=== PATIENT | male | born 2005 | race Caucasian/White ===

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

== ENCOUNTER 2023-07-17 03:29 | Emergency (ER) | payer OTHER, SELFPAY ==
[2023-07-17 03:36] VITALS: BP 142/84; PULSE 78; RESP 16; TEMP 36.8; O2SAT 98
[2023-07-17 03:38] VITALS: BP 122/70; PULSE 84; O2SAT 99
[2023-07-17 03:48] VITALS: BP 142/84; PULSE 78; RESP 16; TEMP 36.8; O2SAT 98; BMI 19.5
[2023-07-17 06:06] VITALS: BP 113/55; PULSE 54; RESP 16; TEMP 36.6; O2SAT 95
--- NOTE | 2023-07-17 06:30 | ED.ANXIETY ---
HPI - Anxiety General Chief Complaint: Anxiety Stated Complaint: stressed x 83 minutes Time Seen by Provider: 07/17/23 06:30 Source: patient and RN notes reviewed Mode of arrival: ambulatory Limitations: no limitations History of Present Illness ED Provider: Sarahi Nur PA-C HPI narrative: This is a 18-year-old male, with a history of anxiety depression, who presents emergency department via EMS with complaints of increased anxiety and stressors. Patient states he has been without his medications for the last 4 days. He states that his grandparents who he was staying with recently kicked him out because he was drinking alcohol. Patient states that he is currently followed by DCF as well as DDS who has been attempting to find placement for housing for him as he reports he is currently homeless. Patient does have a psychiatrist who typically prescribed his medications for him. He denies any suicidal or homicidal ideations. Denies any current auditory or visual hallucinations. He denies any chest pain, shortness of breath, abdominal pain, nausea, vomiting or diarrhea. No other complaints or concerns at this time. MD complaint: anxiety Quality: constant Provoking factors: none known Relieving factors: nothing Exacerbating factors: nothing Associated symptoms: denies other symptoms Related Data Previous Rx's ?Medication ?Instructions ?Recorded clonidine HCl 0.1 mg tablet 0.1 mg PO BID #14 tabs 01/12/22 methylphenidate HCl 36 mg 36 mg PO DAILY #7 tabs 01/12/22 tablet,extended release 24 hr (Concerta) mirtazapine 15 mg tablet 15 mg PO DAILY #7 tabs 01/12/22 risperidone 0.5 mg tablet 0.5 mg PO DAILY #7 tabs 01/12/22 Magic Mouthwash 5 ml PO BID PRN sore throat #240 mL 05/01/22 Diphen/Lido/Antacid 1:1:1 240 mL suspension ibuprofen 600 mg tablet 600 mg PO Q6H PRN fever or pain 09/24/22 #30 tabs Allergies Allergy/AdvReac Type Severity Reaction Status Date / Time No Known Allergies Allergy Unknown UNKNOWN Verified 07/17/23 03:53 [NO KNOWN ALLERGIES] Review of Systems Review of Systems: Yes all other systems are reviewed and are negative Constitutional: Constitutional: Reports as per [facility] Past Medical History Attestation statement: The following information was validated with the patient. Medical History No pertinent past medical history Social History Social History Alcohol intake: never Smoked in Last 30 Days: No Use of substances other than those prescribed or required for medical reasons: Yes Substance Use Type: Marijuana Advance Directives: No Do you have a plan to hurt others: No Plan Physical Exam Vital Signs: Vital Signs: Last Vital Signs Temp 98 F 07/17/23 12:56 Pulse 70 07/17/23 12:56 Resp 16 07/17/23 12:56 BP 121/74 07/17/23 12:56 Pulse Ox 96 07/17/23 12:56 O2 Del Method Room Air 07/17/23 12:56 BMI result Body Mass Index 19.5 Const: General: cooperative, comfortable and no acute distress Orientation/consciousness: patient oriented x3 Limitations: no limitations HEENT: Head: Yes normal to inspection, Yes normocephalic and Yes atraumatic Ears: hearing grossly normal bilaterally General nose exam: Normal external nose present Face and sinus: Yes normal facial exam Mouth: Normal oral and palatal mucosa present, oropharynx normal and moist mucous membranes Throat: Yes posterior oropharynx normal Eyes: General: appearance normal, both eyes and all related structures Eyelids: Yes eyelids normal Conjunctivae: conjunctivae normal Sclerae: sclerae normal Pupils: Equal, round and reactive pupils present EOM: EOMs intact bilaterally Neck: Neck: Yes normal visual inspection, Yes full ROM and Yes no lymphadenopathy Lymphatic: no lymphadenopathy noted Chest: Chest palpation & inspection: normal inspection of the chest Resp: Effort & Inspection: normal respiratory effort and able to speak in complete sentences Auscultation: clear to auscultation bilaterally, no crackles, no rales, no rhonchi and no wheezes Cardio: Rate: regular rate Rhythm: regular rhythm Heart sounds: S1 normal heart sound present and S2 normal heart sound present GI: Inspection: Yes normal to inspection Skin: General skin exam: no rashes or lesions noted Trauma: no lacerations or abrasions Wounds: no wounds Neuro: General: patient oriented x3 and moves all extremities Cranial nerves: Yes Equal, round and reactive pupils present Extrem: General: Yes normal to inspection Right upper extremity: normal to inspection Left upper extremity: normal to inspection Right lower extremity: normal to inspection Left lower extremity: normal to inspection Course Reevaluation(s) Reevaluation #1: Patient has been resting comfortably without any complaints. Pharmacy will not fill any of his medications as it is too early to have these medications refilled. Patient reports that his grandparents currently have the medications in their possession and patient reports he is unable to get them. I called grandparents at patient's request, You, at [phone], without any answer. Left message on voicemail. Time: 09:33 Reevaluation #2: Second phone call made out to grandmother, no answer patient requesting Tylenol. I discussed with patient that we are unable to fill his psych medications. I advised patient to any family members and I also offered that he to the police as they can escort him to nut picker his medication safely. Patient given emergency room phone so he can contact his sister. Time: 11:03 Reevaluation #3: pt unable to get a hold of family but will contact sister at d/c to try and get meds. He is stable and comfortable for d/c. Medications Administered Discontinued Medications Generic Name Dose Route Start Last Admin Trade Name Freq PRN Reason Stop Dose Admin Acetaminophen 975 mg 07/17/23 11:14 07/17/23 11:26 Acetaminophen 325 Mg Tablet PO 07/17/23 11:15 975 mg ONCE ONE Administration Medical Decision Making Medical Decision Making [facility] Narrative: This is a 18-year-old male who presents emergency department with complaints of increased anxiety and depression. Patient states that he recently ran out of his medications 4 days ago and has not been able to have them filled as his grandparents are typically the people that follow-up with a psychiatrist to have these medications. He currently was kicked out of his home as he was drinking alcohol at his grandparent's home. He denies any SI or HI. No auditory or visual hallucinations. On arrival patient mildly hypertensive at 142/84, all other vital signs are within normal limits. He is speaking in full sentences alert and oriented x4. He has no physical complaints. I discussed with patient in regards to speaking with the care team, he declines as he is currently being followed by DCF and DDS, as well as Psychiatry. Plan: Medication refill Differential Diagnosis Differential Diagnoses: The differential diagnosis associated with the presentation includes Anxiety, depression, SI, HI, panic disorder Social Determinants Patient?s care significantly limited by Social Determinants of Health including: Inadequate housing Discharge Plan Discharge Clinical Impression: Acute anxiety Patient Disposition: Home, Self-Care Instructions: Anxiety (ED) Additional Instructions: You need to follow-up with your psychiatrist for further medication management. We were unable to refill your medications as you just refilled them. If any new or worsening symptoms occur including but not limited to thoughts of harming yourself or others, chest pain or shortness of breath, please return to the emergency room. Prescriptions: No Action Magic Mouthwash Diphen/Lido/Antacid 1:1:1 240 mL suspension 5 ml PO BID PRN (Reason: sore throat) Qty: 240 0RF Rx Instructions: Lidocaine Viscous 2 % 80mL; diphenhydramine 12.5 mg/5 mL 80mL; aluminum-mag hydrox-simeth [id number]/5mL 80mL risperidone 0.5 mg tablet 0.5 mg PO DAILY Qty: 7 0RF methylphenidate HCl [Concerta] 36 mg tablet extended release 24hr 36 mg PO DAILY Qty: 7 0RF Rx Instructions: Partial Fill upon patient request. clonidine HCl 0.1 mg tablet 0.1 mg PO BID Qty: 14 0RF mirtazapine 15 mg tablet 15 mg PO DAILY Qty: 7 0RF ibuprofen 600 mg tablet 600 mg PO Q6H PRN (Reason: fever or pain) Qty: 30 0RF Interventions: ED Discharge Assessment Last Done: 07/17/23 12:56 Discharge Date/Time: 07/17/23 12:59 Print Language: Brazilian
--- NOTE | 2023-07-17 09:00 | PC.NURSE ---
pt sleeping, wakes to verbal stimulus, provider looking into pts medications with pharmacy, will continue to monitor
[2023-07-17 10:50] VITALS: BP 128/72; PULSE 72; RESP 16; TEMP 36.6; O2SAT 96
[2023-07-17] MEDS: Acetaminophen 325 MG TABLET 975 MG PO (11:26)
--- NOTE | 2023-07-17 11:57 | PC.NURSE ---
pt attempted to call sister, per pt she did answer however does not get out of work until 4pm.
[2023-07-17 12:56] VITALS: BP 121/74; PULSE 70; RESP 16; TEMP 36.6; O2SAT 96
== END 2023-07-17 12:59 | disposition home or self-care (01) ==
PROVIDERS: Emergency Provider Emergency Medicine Emergency Medical Services
DX: F41.9 Anxiety disorder, unspecified (principal); F32.A Depression, unspecified
CPT/HCPCS: 99283; 99284

== ENCOUNTER 2023-07-18 23:43 | Inpatient (IN) | payer OTHER, SELFPAY ==
[2023-07-18 23:46] VITALS: BP 166/100; PULSE 91; O2SAT 98
[2023-07-18 23:50] VITALS: BP 126/73; PULSE 90; RESP 16; TEMP 37; O2SAT 95; BMI 27.2
--- NOTE | 2023-07-19 | ECG_ITS ---
Test Reason : RULE OUT PROLONGED QTC Blood Pressure : / mmHG Vent. Rate : 056 BPM Atrial Rate : 056 BPM P-R Int : 126 ms QRS Dur : 082 ms QT Int : 384 ms P-R-T Axes : 016 064 054 degrees QTc Int : [address] elevation, consider early repolarization, pericarditis, or injury Abnormal ECG When compared with ECG of 13-JUN-2022 03:26, No significant change was found Referred By: Eve Fay Electronically Signed By:GUANAKO RAPP
[2023-07-19 04:25] VITALS: BP 93/53; PULSE 71; RESP 16; TEMP 36.6; O2SAT 99
--- NOTE | 2023-07-19 06:48 | ED_ITS ---
HPI - General Adult General Chief complaint: General Medical Stated complaint: SI Time Seen by Provider: 07/19/23 06:39 Source: patient, RN notes reviewed and old records reviewed Mode of arrival: ambulatory Limitations: no limitations History of Present Illness ED Provider: GAY NORMAN PA-C HPI narrative: 18 year old male with pmhx significant for ADHD, anxiety, and depression presents to the ED from home today requesting to speak with care team. He endorses feelings of depression s/p family member jumping off bridge recently. He states that he has no one to talk to about this. He denies SI/HI. Denies AH/VH/TH. Patient is currently involved in DCF/DDS. Denies illicit substance use. Denies EtOH consumption. Denies any physical complaints at present. Related Data Previous Rx's ?Medication ?Instructions ?Recorded methylphenidate HCl 36 mg 36 mg PO DAILY #7 tabs 01/12/22 tablet,extended release 24 hr (Concerta) risperidone 0.5 mg tablet 0.5 mg PO DAILY #7 tabs 01/12/22 Allergies Allergy/AdvReac Type Severity Reaction Status Date / Time No Known Allergies Allergy Unknown UNKNOWN Verified 07/18/23 23:50 [NO KNOWN ALLERGIES] Review of Systems 2 Review of Systems: Constitutional: No fever, chills, fatigue, night sweats, weight changes ENT/Mouth: No ear pain, hearing loss, nasal congestion, sinus pain, rhinorrhea, sore throat Eyes: No eye pain, swelling, redness, vision changes, discharge Cardio: No chest pain, palpitations, CANTRELL, orthopnea, peripheral edema Pulm: No SOB, cough, sputum, wheezing, dyspnea, hemoptysis GI: No nausea, vomiting, hematemesis, abdominal pain, diarrhea, constipation, hematochezia, melena : No irregular bleeding, dysuria, frequency, urgency, hesitancy, hematuria, flank pain, urinary flow changes, urinary incontinence or retention MSK: No back pain, neck pain, joint pain, myalgias Skin: No lesions, rashes Neuro: No weakness, numbness, paresthesias, LOC, dizziness, headache Psych: No anxiety/panic, SI/HI, AH/VH, +depression All other systems reviewed and are negative. [facility] Past Medical History Attestation statement: The following information was validated with the patient. Source: old records reviewed and nursing notes reviewed Medical History No pertinent past medical history Social History Social History Alcohol intake: never Smoked in Last 30 Days: No Use of substances other than those prescribed or required for medical reasons: No Substance Use Type: Marijuana Advance Directives: No Advance Directives Information Provided: No Physical Exam ED Vital Signs: Vital Signs - 24 hr 07/18/23 23:50 07/19/23 04:25 Temperature 98.6 F 97.8 F Pulse Rate 90 71 Respiratory Rate 16 16 Blood Pressure 126/73 93/53 L Pulse Oximetry 95 99 Oxygen Delivery Method Room Air Room Air BMI result Body Mass Index 27.2 Vital signs stable Const General: cooperative, healthy appearing, comfortable and no acute distress Orientation/consciousness: patient oriented x3 HENFL Head: Yes normal to inspection, Yes No palpable skull fracture present, Yes normocephalic and Yes atraumatic Eyes General: appearance normal, both eyes and all related structures Neck Neck: Yes normal visual inspection, Yes full ROM and Yes no lymphadenopathy Resp Effort & Inspection: normal respiratory effort and able to speak in complete sentences Auscultation: clear to auscultation bilaterally Cardio Rate: regular rate Rhythm: regular rhythm General: Yes no CVA tenderness Back/Spine/Pelvis Back: no CVA tenderness Skin General skin exam: no rashes or lesions noted Neuro General: patient oriented x3, gait normal and no focal motor deficits Cranial nerves: Yes CN's II-XII intact bilaterally Course Course Course Narrative: 906-- CBC without leukocytosis or left shift. No anemia. H&H stable. Chemistry without acute electrolyte abnormality requiring intervention. BUN slightly elevated at 21. Normal creatinine. Salicylates undetectable. Ethanol undetectable. > UA and UDS pending > physician observation initiated at 0907 pending care team evaluation 1156-- urine negative for infection. Urine drug screen negative. 12:48 The patient was evaluated by the care team and I did get the following information. The patient has a low IQ of approximately 60, patient was living with his grandparents and the grandmother with his guardian however the patient has been living independently. He is been demonstrating very unsafe behaviors in order to try to gain friends. He has been stealing his grandmother's debit cadr. He has been spending money in inappropriate ways. Care team provider felt that the patient is at high risk of unintended harm secondary to his behavior and the patient is not taking his medications therefore I placed the patient on a Section 12. DCF and DDS has been involved in the patient's case. The grandparents would like to obtain guardianship to help the patient get into an appropriate living situation. Patient will be kept in the Behavioral Health Unit until a disposition can be determined. Medical Decision Making Medical Decision Making [facility] Narrative: 18 year old male with pmhx significant for ADHD, anxiety, and depression presents to the ED from home today requesting to speak with care team. Vital signs stable. Patient is afebrile. He is nontoxic-appearing and in no acute distress. Sleeping comfortably on the exam bed. RRR. Lungs are CTA b/l. ambulating with steady gait. Differential diagnosis includes depression, med noncompliance. Unlikely SI, HI, anxiety, substance use. Plan for basic labs, UA, UDS, care team consultation, and disposition. Differential Diagnosis Differential Diagnoses: The differential diagnosis associated with the presentation includes As above Admission/Observation Not indicated Lab Data [facility] Lab Attestation statement: I reviewed the patient's lab results. As above 07/19/23 07:28 07/19/23 07:28 Labs: Lab Results 07/19/23 07/19/23 Range/Units 07:28 10:32 WBC 7.9 (4.8-10.8) X10*3/uL RBC 4.98 (4.60-5.80) X10*6/uL Hgb 15.5 (14.0-18.0) g/dl Hct 44.3 (42.0-52.0) % MCV 89.0 (80.0-98.0) fL MCH 31.1 (27.0-33.0) pg MCHC 35.0 (31.0-36.0) g/dl RDW 12.2 (11.0-16.0) % Plt Count 335 D (160-400) X10*3/uL MPV 8.5 L (9.4-12.4) fL Immature Gran % (Auto) 0.3 (0.0-0.4) % Neut % (Auto) 48.3 (45-73) % Lymph % (Auto) 38.2 (20-40) % Rogers % (Auto) 11.3 H (2-11) % Eos % (Auto) 1.5 (0-4) % Baso % (Auto) 0.4 (0-2) % Lymph # (Auto) 3.0 (1.2-4.9) X10*3/uL Rogers # (Auto) 0.9 (0.1-1.2) X10*3/uL Eos # (Auto) 0.1 (0.0-0.4) X10*3/uL Baso # (Auto) 0.0 (0.0-0.2) X10*3/uL Abs Immat Gran (auto) 0.02 (0.00-0.03) X10*3/uL Absolute Neuts (auto) 3.8 (2.0-8.3) x10*3/uL Absolute Nucleated RBC 0.000 (0.0-0.012) X10*3/uL Nucleated RBC % (auto) 0.0 (0.0-0.2) /100WBC Sodium 139 (135-145) mmol/L Potassium 4.0 (3.3-5.1) mmol/L Chloride 107 (96-108) mmol/L Carbon Dioxide 24 (22-29) mmol/L Anion Gap 12 (12-20) BUN 21 H (9-16) mg/dL Creatinine 0.99 (0.5-1.4) mg/dL Estim Creat Clear Calc 107.4 Estimated GFR > 60 Random Glucose 96 (60-115) mg/dL Calcium 9.1 (8.4-10.2) mg/dL Magnesium 2.1 (1.6-2.6) mg/dL Total Bilirubin 0.2 (0.0-1.0) mg/dL AST 18 (5-37) U/L ALT 14 (0-40) U/L Alkaline Phosphatase 55 (39-117) U/L Total Protein 6.9 (6.5-8.0) g/dL Albumin 4.1 (3.5-5.0) g/dL Lipase 18 (8-78) U/L Urine Color Yellow Urine Appearance Clear Urine pH 5.5 (5.0-9.0) Ur Specific [place] >= 1.030 H (1.005-1.025) Urine Protein Negative (Neg-Trace) mg/dL Urine Glucose (UA) Negative (Negative) mg/dL Urine Ketones Negative (Negative) mg/dL Urine Blood Negative (Negative) Urine Nitrite Negative (Negative) Ur Leukocyte Esterase Negative (Negative) Salicylates < 5.0 L (15-30) mg/dL Urine Opiates Screen Not Detected (Not Detect) Ur Buprenorphine Scrn Not Detected (Not Detect) ng/mL Ur Oxycodone Screen Not Detected (Not Detect) ng/mL Urine Methadone Screen Not Detected (Not Detect) ng/mL Urine Fentanyl Screen Not Detected (Not Detect) Ur Barbiturates Screen Not Detected (Not Detect) Ur Phencyclidine Scrn Not Detected (Not Detect) Ur Amphetamines Screen Not Detected (Not Detect) U Benzodiazepines Scrn Not Detected (Not Detect) Urine Cocaine Screen Not Detected (Not Detect) U Marijuana (THC) Screen Not Detected (Not Detect) Ethyl Alcohol < 10 mg/dL External Record Review External record reviewed: Inpatient record Social Determinants Patient?s care significantly limited by Social Determinants of Health including: Other Social Determinant of Health Critical Care Time Critical Care Time Critical Care Time: No Discharge Plan Discharge Clinical Impression: Depression Patient Disposition: Still a Patient Prescriptions: No Action risperidone 0.5 mg tablet 0.5 mg PO DAILY Qty: 7 0RF methylphenidate HCl [Concerta] 36 mg tablet extended release 24hr 36 mg PO DAILY Qty: 7 0RF Rx Instructions: Partial Fill upon patient request. Print Language: Croatian
[2023-07-19 07:44] LABS: MANUAL DIFF FLAG NO
[2023-07-19 07:47] LABS: Basophils Percent Auto 0.4 % (0-2); Eosinophils Absolute Auto 0.1 X10*3/uL (0.0-0.4); Eosinophils Percent Auto 1.5 % (0-4); Hematocrit 44.3 % (42.0-52.0); Hemoglobin 15.5 g/dl (14.0-18.0); Imm Gran Abs Auto 0.02 X10*3/uL (0.00-0.03); Imm Gran Pct Auto 0.3 % (0.0-0.4); Lymphocytes Percent Auto 38.2 % (20-40); Mean Corpuscular Hemoglobin 31.1 pg (27.0-33.0); Mean Platelet Volume 8.5 fL (9.4-12.4); Monocytes Absolute Auto 0.9 X10*3/uL (0.1-1.2); Monocytes Percent Auto 11.3 % (2-11); Neutrophils Absolute Auto 3.8 x10*3/uL (2.0-8.3); Neutrophils Percent Auto 48.3 % (45-73); Platelet Count 335 X10*3/uL (160-400); Red Blood Count 4.98 X10*6/uL (4.60-5.80); Red Cell Distribution Width 12.2 % (11.0-16.0); White Blood Count 7.9 X10*3/uL (4.8-10.8)
--- NOTE | 2023-07-19 07:55 | PC.NURSE ---
Pt reports he came to ER due to feeling stressed out, reports he is currently homeless and working with DCF to find a home. Denies SI or HI, reports he only feels stressed and wants to talk to someone about his living situation. Denies pain, SOB, CP, or complaints. Alert and oriented, breathing even and unlabored, skin warm and dry.
[2023-07-19 08:02] LABS: Salicylate < 5.0 mg/dL (15-30)
[2023-07-19 08:06] LABS: Alanine Aminotransferase 14 U/L (0-40); Albumin Level 4.1 g/dL (3.5-5.0); Alkaline Phosphatase 55 U/L (39-117); Anion Gap 12 (12-20); Aspartate Amino Transferase 18 U/L (5-37); Bilirubin Total 0.2 mg/dL (0.0-1.0); Blood Urea Nitrogen 21 mg/dL (9-16); Calcium 9.1 mg/dL (8.4-10.2); Carbon Dioxide 24 mmol/L (22-29); Chloride 107 mmol/L (96-108); Creatinine Clr Calc Pharmacy 107.4; Estimated Glomerular Filt Rate > 60; Ethanol < 10 mg/dL; Glucose Random 96 mg/dL (60-115); Lipase 18 U/L (8-78); Magnesium 2.1 mg/dL (1.6-2.6); Sodium 139 mmol/L (135-145); Total Protein 6.9 g/dL (6.5-8.0)
[2023-07-19 10:40] LABS: Appearance Urine Clear; Color Urine Yellow; Glucose Urine UA Negative (Negative); Leukocyte Esterase Urine Negative (Negative); Nitrite Urine Negative (Negative); PH 5.5 (5.0-9.0); Specific Gravity - Urine >= 1.030 (1.005-1.025); Urine Blood Negative (Negative); Urine Ketones Negative (Negative); Urine Protein Negative (Neg-Trace)
[2023-07-19 10:57] LABS: Amphetamine Screen Urine Not Detected (Not Detect); Barbiturates, Urine Not Detected (Not Detect); Benzodiazepines Screen Urine Not Detected (Not Detect); Buprenorphine Scr Not Detected (Not Detect); Cannabinoid Screen Urine Not Detected (Not Detect); Cocaine Screen Urine Not Detected (Not Detect); Fentanyl, urine Not Detected (Not Detect); Methadone Screen, Urine Not Detected (Not Detect); Opiate Screen Urine Not Detected (Not Detect); Oxycodone Screen Urine Not Detected (Not Detect); Phencyclidine Screen Urine Not Detected (Not Detect)
--- NOTE | 2023-07-19 11:26 | PC.NURSE ---
Pt sleeping at this time.
[2023-07-19] MEDS: Nicotine Polacrilex 2 MG GUM BUCCAL (13:47)
[2023-07-19 15:00] VITALS: RESP 16
--- NOTE | 2023-07-19 15:00 | PC.NURSE ---
Assumed care of patient at approximately 1300, patient brought from main ED, originally very agitated, uncooperative with exchange floor manager, yelling at staff and disrupting the pod milieu. Patient eventually willing to exchange floor manager and give up belongings. Cooperative with care at this time. Patient aware that he is on section 12 and the plan is for inpatient bedsearch. Patient ambulating with steady gait around BH pod, listening to music, singing and joking with staff. No apparent distress noted. Patient denies SI/HI/AH
[2023-07-19 15:44] VITALS: BP 122/78; PULSE 89; RESP 18; TEMP 36.5; O2SAT 97
[2023-07-19] MEDS: hydrOXYzine HCL 25 MG TABLET PO (16:48)
--- NOTE | 2023-07-19 17:02 | PC.NURSE ---
Patient beginning to get agitated, throwing stress ball at wall, standing on chair to look out of windows. Patient reporting increased anxiety due to not having activities to entertain himself. Patient offered things to do however, he declined. Report given to M5
[2023-07-19 17:50] VITALS: BP 118/66; PULSE 69; RESP 20; TEMP 36.6; O2SAT 98
[2023-07-19 17:52] VITALS: BMI 26.6
--- NOTE | 2023-07-19 18:35 | PC.ADMIT ---
Addendum entered by Ade Cannon RN 07/19/23 19:16: Skin and safety check done with 2 and unremarkable Original Note: Edinson was admitted from [facility] on a CV for unspecified depressive, anxiety disorder, and ADHD. Per CARE team assessment, he initially presented to the ED via ambulance after reporting being depressed due to a in his family and would like to talk with someone . Per patients grandmother, pt reportedly told her he wanted to jump off a bridge as he lost a friend 2 weeks ago to suicide. He has involvement with DDS and DCF and reports he is all out of medications. He usually takes Concerta for ADHD but reports it's on backorder. He does have a speech impediment, and speech is rapid, and irritable stating I don't need to be here... I am not suicidal or homicidal. I need to be making money right now! I have to be at work tonight. 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 Per CARE team note, he is vulnerable given his low IQ level and developmental disability, (unable to read or write per grandmother) Denies SI/HI/AVH. Endorses he smokes weed everyday and vapes tobacco daily. He was oriented to the unit, signed a 3 day notice shortly after signing CV with provider Alexx Rehman.
[2023-07-20 07:00] VITALS: BMI 26.7
[2023-07-20 08:06] VITALS: BP 105/55; PULSE 57; RESP 18; TEMP 37.1; O2SAT 97
[2023-07-20] MEDS: OLANZapine 5 MG TABLET PO (15:41)
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
[2023-07-21 08:00] VITALS: BP 105/55; PULSE 70; RESP 18; TEMP 36.5; O2SAT 98
[2023-07-21] MEDS: risperiDONE 0.5 MG TABLET PO (10:09)
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
[2023-07-21 20:00] VITALS: BP 125/73; PULSE 104; RESP 18; TEMP 36.7; O2SAT 95
[2023-07-22 08:00] VITALS: BP 140/77; PULSE 81; RESP 16; TEMP 36.7; O2SAT 97
[2023-07-22] MEDS: risperiDONE 0.5 MG TABLET PO (08:25)
--- NOTE | 2023-07-22 18:27 | P.DS_ITS ---
DS: Providers Provider Date of Service: 07/22/23 Date of admission: 07/19/23 15:42 Date of discharge: 07/22/23 Primary care physician: Unknown Physician Admitting clinician: Rajni Valerio Attending physician on admission: Paco Macias Attending physician on discharge: Paco Macias Discharging clinician: Rajni Valerio DS: Diagnosis Discharge Diagnosis (1) ADHD: Status: Acute (2) Adjustment reaction with mixed disturbance of emotions and conduct: Status: Acute DS: Medications Discharge Medications Home Medications: Previous Rx's ?Medication ?Instructions ?Recorded methylphenidate HCl 36 mg 36 mg PO DAILY #7 tabs 01/12/22 tablet,extended release 24 hr (Concerta) risperidone 0.5 mg tablet 0.5 mg PO DAILY #14 tabs 07/21/23 trazodone 50 mg tablet 50 mg PO BEDTIME #14 tabs 07/21/23 Mental Status Exam Mental Status Exam Patient Appearance: Appropriate Patient Orientation: Person, Place, Time and Situation Level of Consciousness: Alert Patient Behavior: Talkative, Restless, Distractible and Good Eye Contact Mood Description: Expansive Affect Description: Expansive Patient Cognition Impaired: No Ability to Follow Directions: Good Speech Pattern: Spontaneous Speech Memory Description: Intact Hallucinations: None Delusions: Not Present Thought Process: Intact and Goal Oriented Thought Content: positive for Intact and positive for Goal Oriented Judgement: Good Data Data Completed and Pending Completed studies during hospitalization [Text1]: 07/19/23 07/19/23 07:28 10:32 WBC 7.9 RBC 4.98 Hgb 15.5 Hct 44.3 MCV 89.0 MCH 31.1 MCHC 35.0 RDW 12.2 Plt Count 335 D MPV 8.5 L Immature Gran % (Auto) 0.3 Neut % (Auto) 48.3 Lymph % (Auto) 38.2 [place] % (Auto) 11.3 H Eos % (Auto) 1.5 Baso % (Auto) 0.4 Lymph # (Auto) 3.0 [place] # (Auto) 0.9 Eos # (Auto) 0.1 Baso # (Auto) 0.0 Abs Immat Gran (auto) 0.02 Absolute Neuts (auto) 3.8 Absolute Nucleated RBC 0.000 Nucleated RBC % (auto) 0.0 Sodium 139 Potassium 4.0 Chloride 107 Carbon Dioxide 24 Anion Gap 12 BUN 21 H Creatinine 0.99 Estim Creat Clear Calc 107.4 Estimated GFR > 60 Random Glucose 96 Calcium 9.1 Magnesium 2.1 Total Bilirubin 0.2 AST 18 ALT 14 Alkaline Phosphatase 55 Total Protein 6.9 Albumin 4.1 Lipase 18 Urine Color Yellow Urine Appearance Clear Urine pH 5.5 Ur Specific [place] >= 1.030 H Urine Protein Negative Urine Glucose (UA) Negative Urine Ketones Negative Urine Blood Negative Urine Nitrite Negative Ur Leukocyte Esterase Negative Salicylates < 5.0 L Urine Opiates Screen Not Detected Ur Buprenorphine Scrn Not Detected Ur Oxycodone Screen Not Detected Urine Methadone Screen Not Detected Urine Fentanyl Screen Not Detected Ur Barbiturates Screen Not Detected Ur Phencyclidine Scrn Not Detected Ur Amphetamines Screen Not Detected U Benzodiazepines Scrn Not Detected Urine Cocaine Screen Not Detected U Marijuana (THC) Screen Not Detected Ethyl Alcohol < 10 DS: Summary Hospital Course Hospital Course: Admission to adult psychiatry for ADHD, mixed adjustment reaction along with ca nnabis use. Pt reported wanting support for a recent loss and having difficulty obtaining ADHD medications as they were on back order. Family reports pt has been neglecting self care and taking risks in the community. Pt signed a three day notice on admission. DDS and DCF are connected with pt and are in the process of helping him find housing. Pt reports he uses hospitals for a few days to have a safe place to sleep and is not interested in milieu treatment. He will return to [facility] for out patient services and continue to work with DCF and DDS on housing options. Status at Discharge Functional status at discharge: independent ambulation Overall status at discharge: patient is back to baseline Time Spent with Patient Time attestation: Total time managing care of this patient today ____ minutes. Time spent: Less than 30 minutes Discharge Plan Discharge Anticipated Discharge Date/Time: 07/22/23 12:00 Patient Disposition: Xfer Other Discharge Diagnosis: Adjustment Reaction, Mixed ADHD Referrals: [facility] ([facility]): Therapy [Other] - 08/07/23 10:00 am (Hospital discharge appointment with therapist) Don Mederos (psychiatry): [facility] [Other] - 08/08/23 1:20 pm (Hospital Discharge appointment with psychiatrist) Physician,Unknown J [Primary Care Provider] - (Edinson declined to sign release for Primary Care Provider. No appointment scheduled.) Discharge Medications: Continued methylphenidate HCl [Concerta] 36 mg tablet extended release 24hr 36 mg PO DAILY Qty: 7 0RF Rx Instructions: Partial Fill upon patient request. trazodone 50 mg tablet 50 mg PO BEDTIME Qty: 14 0RF risperidone 0.5 mg tablet 0.5 mg PO DAILY Qty: 14 0RF No Action benzonatate 200 mg capsule 200 mg PO TID PRN (Reason: cough) Qty: 30 0RF ibuprofen 600 mg tablet 600 mg PO Q6H PRN (Reason: fever or pain) Qty: 30 0RF benzonatate 100 mg capsule 100 mg PO TID PRN (Reason: cough) Qty: 14 0RF cephalexin 500 mg capsule 500 mg PO QID 10 Days Qty: 40 0RF Discharge Orders: Discharge Order (Routine); Ordered 07/22/23 Ordered By: Rajni Valerio Diet: Advance to usual diet Activity on Discharge: As tolerated Stand Alone Forms: Patient Portal Discharge page, Community Support Print Language: Beninese Care Plan Goals: Mood and Behavioral Stabilization Health Concerns: Mood and Behavioral Stabilization Plan of Treatment: Attend scheduled appointments. Take medications as directed Assessment: Discharge on a three day notice of intent. Discharge Date/Time: 07/22/23 09:27
== END 2023-07-22 09:27 | disposition other institution (70) | DRG 755 ==
LOC: HO.ED 07-19 12:52 → HO.PM5 07-19 15:52
PROVIDERS: Physician Assistant Medical; Admitting Provider Psychiatry & Neurology Psychiatry; Emergency Provider Emergency Medicine; Visit Provider Psychiatry & Neurology Psychiatry
DX: F43.25 Adjustment disorder with mixed disturbance of emotions and conduct (principal); R45.851 Suicidal ideations; Z91.148 Patient's other noncompliance with medication regimen for other reason; F90.9 Attention-deficit hyperactivity disorder, unspecified type; F17.210 Nicotine dependence, cigarettes, uncomplicated; Z71.6 Tobacco abuse counseling; Z79.899 Other long term (current) drug therapy
CPT/HCPCS: 36415; 80053; 80179; 80307; 81003; 83690; 83735; 85025; 93005; 99285; S9485

== ENCOUNTER → 2023-07-19 15:10 | Outpatient (BNV) | payer OTHER, SELFPAY | PROVIDERS: Admitting Provider Psychiatry & Neurology Psychiatry; Emergency Provider Emergency Medicine; Visit Provider Internal Medicine | DX: R94.31 Abnormal electrocardiogram [ECG] [EKG] (principal) | CPT/HCPCS: 93010 ==

== ENCOUNTER → 2023-07-19 15:42 | Outpatient (BNV) | payer OTHER, SELFPAY | PROVIDERS: Admitting Provider Psychiatry & Neurology Psychiatry; Emergency Provider Emergency Medicine; Visit Provider Clinical Nurse Specialist Psychiatric/Mental Health, Adult | DX: F90.9 Attention-deficit hyperactivity disorder, unspecified type (principal); F43.25 Adjustment disorder with mixed disturbance of emotions and conduct | CPT/HCPCS: 90792; 99232; 99238 ==

== ENCOUNTER 2023-07-31 08:31 | Emergency (ER) | payer OTHER, SELFPAY ==
--- NOTE | ~2023-07-31 | XR_ITS ---
EXAMINATION: XR CHEST CLINICAL INFORMATION: Cough with Covid COMPARISON: None available. TECHNIQUE: 2 views of the chest were obtained. FINDINGS: No significant abnormality is noted involving the heart, lungs, mediastinum, bony thorax or soft tissues. XR/XR chest 2V IMPRESSION: Unremarkable examination.
[2023-07-31 08:40] VITALS: BP 117/73; BP 122/84; PULSE 68; PULSE 92; RESP 16; TEMP 36.6; O2SAT 96; O2SAT 97; BMI 29.0
[2023-07-31 09:31] VITALS: TEMP 36.8
--- NOTE | 2023-07-31 09:32 | PC.NURSE ---
pt c/o feeling chills - temperature taken, 98.2. pt reiterated that he has never had covid beore and he is scared
--- NOTE | 2023-07-31 10:17 | ED.GENADULT ---
HPI - General Adult General Chief complaint: General Medical Stated complaint: +COVID THIS AM,LOUISE,WEAK,COUGH PER EMS Time Seen by Provider: 07/31/23 09:56 Source: patient and EMS Mode of arrival: EMS Limitations: no limitations History of Present Illness ED Provider: Anastacio Ochoa NP HPI narrative: Patient is a 18-year-old male with history of ADHD, adjustment reaction currently experiencing homelessness presenting to the emergency department with complaint of nonproductive cough, sore throat congestion and sneezing. States I feel like crap. Patient tested positive for COVID yesterday. He was discharged from [facility] this morning. He denies any recent change in symptoms. Has not taken any OTC medications for his symptoms. Denies chest pain or palpitations. Denies nausea, vomiting, diarrhea. MD complaint: cough, sore throat, Covid+ Onset (ago): day(s) Associated symptoms: cough, fever/chills, headaches and malaise Treatments prior to arrival: none Related Data Previous Rx's ?Medication ?Instructions ?Recorded methylphenidate HCl 36 mg 36 mg PO DAILY #7 tabs 01/12/22 tablet,extended release 24 hr (Concerta) risperidone 0.5 mg tablet 0.5 mg PO DAILY #14 tabs 07/21/23 trazodone 50 mg tablet 50 mg PO BEDTIME #14 tabs 07/21/23 benzonatate 100 mg capsule 100 mg PO TID PRN cough #14 caps 07/31/23 Allergies Allergy/AdvReac Type Severity Reaction Status Date / Time No Known Allergies Allergy Unknown UNKNOWN Verified 07/31/23 08:44 [NO KNOWN ALLERGIES] Review of Systems Review of Systems: As per HPI. Yes all other systems are reviewed and are negative Constitutional: Constitutional: Reports as per HPI [facility] Past Medical History Medical History (Updated 07/31/23 @ 12:32 by Tasha Ochoa NP) ADHD Adjustment reaction with mixed disturbance of emotions and conduct No pertinent past medical history Social History Social History Household Members: Other Household Members Other:: grandmother Housing: Unknown / Unable to assess Do you presently have visiting nurse or other home services: No Alcohol intake: never Patient Tobacco Use Status: Current everyday Tobacco user Smoked in Last 30 Days: No e-Cigarette/Vaping Use: Currently Using Second Hand Smoke Exposure: No Use of substances other than those prescribed or required for medical reasons: Yes Substance Use Type: Marijuana Advance Directives: No Advance Directives Information Provided: Yes Do you have a plan to hurt others: No Plan service: No Sexual orientation: Don't Know Physical Exam ED Vital Signs: Vital Signs - 24 hr 07/31/23 08:40 07/31/23 09:31 Temperature 98 F 98.2 F Pulse Rate 68 Respiratory Rate 16 Blood Pressure 117/73 Pulse Oximetry 96 Oxygen Delivery Method Room Air BMI result Body Mass Index 29.0 Vital signs have been reviewed and appear to be correct. Blood pressure normal. Heart rate normal. Respiratory rate normal. Temperature normal. Oxygen saturation normal. Const General: cooperative, healthy appearing and no acute distress Orientation/consciousness: oriented to person, oriented to place, oriented to time and patient oriented x3 Limitations: no limitations HENMT Head: Yes normocephalic and Yes atraumatic Ears: external ears normal, TM's normal bilaterally and EAC's normal General nose exam: Normal external nose present, Normal nasal mucous membranes and turbinates present and Normal septum present Face and sinus: Yes face symmetric Mouth: oropharynx normal, moist mucous membranes, no drooling and no trismus Throat: Yes uvula midline, Yes abnormal tonsil (erythema, no edema or exudate), No peritonsillar mass and No uvular edema Eyes Pupils: Equal, round and reactive pupils present Neck Neck: Yes normal visual inspection, Yes full ROM, Yes no lymphadenopathy and Yes supple Resp Effort & Inspection: normal respiratory effort and able to speak in complete sentences Auscultation: clear to auscultation bilaterally Cardio Rate: regular rate Rhythm: regular rhythm Heart sounds: S1 normal heart sound present and S2 normal heart sound present GI Palpation (GI): Soft to palpation and nontender Auscultation: normoactive bowel sounds General: Yes no CVA tenderness Back/Spine/Pelvis Back: no CVA tenderness Skin General skin exam: elasticity normal and turgor normal Neuro General: oriented to person, oriented to place, oriented to time, patient oriented x3, moves all extremities, no focal motor deficits and CN's II-XI intact bilaterally Cranial nerves: Yes Equal, round and reactive pupils present Cognition (Neuro): normal cognition Extrem General: Yes full ROM, Yes no pedal edema and Yes no calf tenderness Psych Mental Status: mental status grossly normal Affect: normal affect Thought process: Normal thought process present Medications Administered Discontinued Medications Generic Name Dose Route Start Last Admin Trade Name Abhinav PRN Reason Stop Dose Admin Benzonatate 100 mg 07/31/23 11:01 07/31/23 11:11 Benzonatate 100 Mg Capsule PO 07/31/23 11:02 100 mg ONCE ONE Administration Ibuprofen 600 mg 07/31/23 11:01 07/31/23 11:11 Ibuprofen 600 Mg Tablet PO 07/31/23 11:02 600 mg ONCE ONE Administration Medical Decision Making Medical Decision Making [facility] Narrative: Patient is a 18-year-old male with history of ADHD, adjustment reaction currently experiencing homelessness presenting to the emergency department with complaint of nonproductive cough, sore throat congestion and sneezing. On exam patient is awake, A+Ox3, VS WNL, afebrile, normal neurological exam without focal deficits, physical exam findings as above. Given reported symptoms and physical exam findings, initial differential includes Covid, strep pharyngitis. Less likely bronchitis or pneumonia. Patient refusing labs. X-ray chest notable for no evidence of pneumonia. My interpretation is in agreement with the radiologist's interpretation. Strep negative. Vital signs stable and physical exam reassuring, feel symptoms are due to known COVID virus. Advised patient he can use Tylenol, ibuprofen as needed for fever or discomfort, will send prescription for benzonatate for cough. Instructed patient follow-up with primary care provider. Return precautions discussed. Patient verbalized understanding of and agreement with plan. Differential Diagnosis Differential Diagnoses: The differential diagnosis associated with the presentation includes As per MDM. Lab Data [facility] Lab Attestation statement: I reviewed the patient's lab results. As per [facility]. Labs: Lab Results 07/31/23 Range/Units 10:41 S. pyogenes GrpA CHRISTINA Negative (Negative) Independent Interpretation I performed an independent interpretation of an: Plain X-Ray Interpretation: No evidence of pneumonia on chest x-ray. Radiology Impression Discussion of test interpretation with radiology: I have reviewed the radiologist's reading. Radiologist Impression: XR/XR chest 2V IMPRESSION: Unremarkable examination. External Record Review External record reviewed: Inpatient record, Office record and Outpatient record Prescription Management I considered prescription management with: Other Discharge Plan Discharge Clinical Impression: COVID-19 Patient Disposition: Home, Self-Care Instructions: COVID-19 (Coronavirus Disease 2019) (ED) Additional Instructions: You were evaluated in the emergency department today for cough, congestion, sore throat. Your symptoms are likely due to your known COVID infection. You are being prescribed benzonatate for cough, please keep this medication out of reach of children. We recommend that you take 600 mg ibuprofen or 650 mg Tylenol every 6 hours as needed for fever or discomfort. If necessary, you can alternate these medications every 3 hours. For example, at 9:00 a.m. take Tylenol, then at noon take ibuprofen, then at 3:00 p.m. take Tylenol. Please follow-up with your primary care provider. Return to the emergency department if you develop worsening shortness of breath or difficulty breathing, chest pain, fevers not controlled with Tylenol or ibuprofen or any other concerning symptoms. Prescriptions: New benzonatate 100 mg capsule 100 mg PO TID PRN (Reason: cough) Qty: 14 0RF No Action methylphenidate HCl [Concerta] 36 mg tablet extended release 24hr 36 mg PO DAILY Qty: 7 0RF Rx Instructions: Partial Fill upon patient request. trazodone 50 mg tablet 50 mg PO BEDTIME Qty: 14 0RF risperidone 0.5 mg tablet 0.5 mg PO DAILY Qty: 14 0RF Print Language: Vietnamese
--- NOTE | 2023-07-31 10:42 | MHC.EDTECH ---
This pct attempted to draw labs but the patient states he doesnt want labs drawn, he refused to be drawn on RN. Aware
[2023-07-31] MEDS: Benzonatate 100 MG CAPSULE PO (11:11)
[2023-07-31] MEDS: Ibuprofen 600 MG TABLET PO (11:11)
[2023-07-31 12:11] LABS: IDNOW Serial# 08D9AD1C; Strep A Nucleic Acid Negative (Negative)
[2023-07-31 13:52] VITALS: BP 95/58; PULSE 75; RESP 16; O2SAT 99
[2023-07-31 14:31] VITALS: BP 95/58; PULSE 75; RESP 16; TEMP 36.8; O2SAT 99
== END 2023-07-31 14:31 | disposition home or self-care (01) ==
PROVIDERS: Registered Nurse Emergency; Emergency Provider Emergency Medicine
DX: U07.1 COVID-19 (principal); Z59.02 Unsheltered homelessness
CPT/HCPCS: 71046; 87651; 99283; 99284

== ENCOUNTER 2023-07-31 22:04 | Emergency (ER) | payer OTHER, SELFPAY ==
[2023-07-31 22:08] VITALS: BP 140/90; PULSE 100; O2SAT 98
[2023-07-31 22:14] VITALS: BP 123/70; PULSE 93; RESP 20; TEMP 36.8; O2SAT 100; BMI 27.5
[2023-08-01] MEDS: Ibuprofen 600 MG TABLET PO (00:52)
[2023-08-01] MEDS: Benzonatate 100 MG CAPSULE 200 MG PO (00:53)
--- NOTE | 2023-08-01 01:04 | ED.URI ---
HPI - URI/Sore Throat General Chief Complaint: Upper Respiratory Symptoms Stated Complaint: Headaches and chills. Tested pos Covid recently Time Seen by Provider: 08/01/23 00:15 Source: patient Mode of arrival: ambulatory Limitations: no limitations History of Present Illness ED Provider: kira WERNER Narrative: Patient has been congested coughing for last 3 days getting worse with lot of body aches no fever no significant shortness of breath was seen at [facility] earlier today COVID test was positive Related Data Previous Rx's ?Medication ?Instructions ?Recorded methylphenidate HCl 36 mg 36 mg PO DAILY #7 tabs 01/12/22 tablet,extended release 24 hr (Concerta) risperidone 0.5 mg tablet 0.5 mg PO DAILY #14 tabs 07/21/23 trazodone 50 mg tablet 50 mg PO BEDTIME #14 tabs 07/21/23 benzonatate 100 mg capsule 100 mg PO TID PRN cough #14 caps 07/31/23 benzonatate 200 mg capsule 200 mg PO TID PRN cough #30 caps 08/01/23 ibuprofen 600 mg tablet 600 mg PO Q6H PRN fever or pain 08/01/23 #30 tabs Allergies Allergy/AdvReac Type Severity Reaction Status Date / Time No Known Allergies Allergy Unknown UNKNOWN Verified 07/31/23 22:18 [NO KNOWN ALLERGIES] Review of Systems Review of Systems: Yes all other systems are reviewed and are negative PMFSH Past Medical History Medical History ADHD Adjustment reaction with mixed disturbance of emotions and conduct No pertinent past medical history Social History Social History Household Members: Other Household Members Other:: grandmother Housing: Unknown / Unable to assess Do you presently have visiting nurse or other home services: No Alcohol intake: never Patient Tobacco Use Status: Current everyday Tobacco user e-Cigarette/Vaping Use: Currently Using Second Hand Smoke Exposure: No Substance Use Type: Marijuana Advance Directives: No Advance Directives Information Provided: Yes Do you have a plan to hurt others: No Plan service: No Sexual orientation: Don't Know Physical Exam Vital Signs: Vital Signs: Last Vital Signs Temp 98.9 F 08/01/23 01:15 Pulse 90 08/01/23 01:15 Resp 18 08/01/23 01:15 BP 110/59 L 08/01/23 01:15 Pulse Ox 98 08/01/23 01:15 O2 Del Method Room Air 08/01/23 01:15 BMI result Body Mass Index 27.5 Appearance: Alert. Oriented X3. No acute distress. ENT: Pharynx normal. Oral Mucosa moist Neck: Normal inspection. Neck supple. CVS: Normal heart rate and rhythm. Pulses normal. Respiratory: No respiratory distress. Equal air entry bilateral, no wheezing/rales/rhonchi Skin: Skin warm and dry. Normal skin color. Normal skin turgor. Extremities: No lower extremity edema. Neuro: Oriented X 3. Medications Administered Discontinued Medications Generic Name Dose Route Start Last Admin Trade Name Freq PRN Reason Stop Dose Admin Benzonatate 200 mg 08/01/23 00:33 08/01/23 00:53 Benzonatate 100 Mg Capsule PO 08/01/23 00:34 200 mg ONCE ONE Administration Ibuprofen 600 mg 08/01/23 00:33 08/01/23 00:52 Ibuprofen 600 Mg Tablet PO 08/01/23 00:34 600 mg ONCE ONE Administration Medical Decision Making Medical Decision Making MDM Narrative: Patient with COVID-19 with mild symptoms no significant involvement of the lungs saturating 100% on room air Discharge Plan Discharge Clinical Impression: COVID-19 Patient Disposition: Home, Self-Care Instructions: COVID-19 (Coronavirus Disease 2019) (ED) Additional Instructions: Drink plenty of fluids Social distancing as advised Tylenol/Motrin for body aches Tessalon for cough Prescriptions: New benzonatate 200 mg capsule 200 mg PO TID PRN (Reason: cough) Qty: 30 0RF ibuprofen 600 mg tablet 600 mg PO Q6H PRN (Reason: fever or pain) Qty: 30 0RF No Action methylphenidate HCl [Concerta] 36 mg tablet extended release 24hr 36 mg PO DAILY Qty: 7 0RF Rx Instructions: Partial Fill upon patient request. trazodone 50 mg tablet 50 mg PO BEDTIME Qty: 14 0RF risperidone 0.5 mg tablet 0.5 mg PO DAILY Qty: 14 0RF benzonatate 100 mg capsule 100 mg PO TID PRN (Reason: cough) Qty: 14 0RF Interventions: ED Discharge Assessment Last Done: 08/01/23 01:15 Discharge Date/Time: 08/01/23 01:16 Print Language: Thai
[2023-08-01 01:10] VITALS: BP 110/59; PULSE 90; RESP 18; TEMP 37.2; O2SAT 98
[2023-08-01 01:15] VITALS: BP 110/59; PULSE 90; RESP 18; TEMP 37.2; O2SAT 98
[2023-08-01 02:18] LABS: Influenza A PCR NEGATIVE (Negative); Influenza B PCR NEGATIVE (Negative); Resp Syncy Virus RNA Qual PCR NEGATIVE (Negative); SARS COV2 PCR INHOUSE POSITIVE (Negative)
== END 2023-08-01 01:16 | disposition home or self-care (01) ==
PROVIDERS: Emergency Provider Internal Medicine
DX: U07.1 COVID-19 (principal); R51.9 Headache, unspecified; M79.10 Myalgia, unspecified site
CPT/HCPCS: 0241U; 99283

== ENCOUNTER 2023-08-06 23:39 | Emergency (ER) | payer OTHER, SELFPAY ==
[2023-08-06 23:45] VITALS: BP 122/74; PULSE 79; RESP 16; TEMP 36.7; O2SAT 96; BMI 27.5
--- NOTE | 2023-08-07 00:15 | ED.SKABFB ---
HPI - Skin/Abscess/Foreign Bdy General Chief complaint: Skin/Abscess/Foreign Body Stated complaint: right leg infection? Time Seen by Provider: 08/07/23 00:15 Source: patient Mode of arrival: ambulatory Limitations: no limitations History of Present Illness ED Provider: kira WERNER narrative: Patient has small cystic area in the right leg for last few months which is getting slightly bigger and red also complaining of headache no fever no chills Related Data Previous Rx's ?Medication ?Instructions ?Recorded methylphenidate HCl 36 mg 36 mg PO DAILY #7 tabs 01/12/22 tablet,extended release 24 hr (Concerta) risperidone 0.5 mg tablet 0.5 mg PO DAILY #14 tabs 07/21/23 trazodone 50 mg tablet 50 mg PO BEDTIME #14 tabs 07/21/23 benzonatate 100 mg capsule 100 mg PO TID PRN cough #14 caps 07/31/23 benzonatate 200 mg capsule 200 mg PO TID PRN cough #30 caps 08/01/23 ibuprofen 600 mg tablet 600 mg PO Q6H PRN fever or pain 08/01/23 #30 tabs cephalexin 500 mg capsule 500 mg PO QID 10 days #40 caps 08/07/23 Allergies Allergy/AdvReac Type Severity Reaction Status Date / Time No Known Allergies Allergy Unknown UNKNOWN Verified 08/06/23 23:49 [NO KNOWN ALLERGIES] Review of Systems Review of Systems: Yes all other systems are reviewed and are negative [facility] Past Medical History Medical History ADHD Adjustment reaction with mixed disturbance of emotions and conduct No pertinent past medical history Social History Social History Household Members: Other Household Members Other:: grandmother Housing: Unknown / Unable to assess Do you presently have visiting nurse or other home services: No Alcohol intake: never Patient Tobacco Use Status: Current everyday Tobacco user e-Cigarette/Vaping Use: Currently Using Second Hand Smoke Exposure: No Substance Use Type: Marijuana Advance Directives: No Advance Directives Information Provided: No Do you have a plan to hurt others: No Plan service: No Sexual orientation: Don't Know Physical Exam Vital Signs: Vital Signs: Last Vital Signs Temp 98.3 F 08/07/23 00:16 Pulse 69 06/17/24 00:16 Resp 18 08/07/23 00:16 BP 112/56 L 08/07/23 00:16 Pulse Ox 96 08/07/23 00:16 O2 Del Method Room Air 08/07/23 00:16 BMI result Body Mass Index 27.5 Extrem: Upper/lower leg/hip images: 1. Small 2 x 2 cm cystic area inflamed Medical Decision Making Medical Decision Making [facility] Narrative: Patient has small cyst likely sebaceous cyst on right lower extremity patient refused I and D or needle aspiration also on the scalp when he has headache cystic material was seen likely ruptured cyst will prescribe Keflex advised to take ibuprofen for pain Discharge Plan Discharge Clinical Impression: Infected sebaceous cyst of skin Patient Disposition: Home, Self-Care Instructions: Cyst (ED) Additional Instructions: Take antibiotics as prescribed If it gets bigger or more red may need incision and drainage Prescriptions: New cephalexin 500 mg capsule 500 mg PO QID 10 Days Qty: 40 0RF No Action methylphenidate HCl [Concerta] 36 mg tablet extended release 24hr 36 mg PO DAILY Qty: 7 0RF Rx Instructions: Partial Fill upon patient request. trazodone 50 mg tablet 50 mg PO BEDTIME Qty: 14 0RF risperidone 0.5 mg tablet 0.5 mg PO DAILY Qty: 14 0RF benzonatate 200 mg capsule 200 mg PO TID PRN (Reason: cough) Qty: 30 0RF ibuprofen 600 mg tablet 600 mg PO Q6H PRN (Reason: fever or pain) Qty: 30 0RF benzonatate 100 mg capsule 100 mg PO TID PRN (Reason: cough) Qty: 14 0RF Print Language: Serbian
[2023-08-07 00:16] VITALS: BP 112/56; PULSE 69; RESP 18; TEMP 36.8; O2SAT 96
[2023-08-07] MEDS: cephALEXin 500 MG CAPSULE PO (00:51)
[2023-08-07 00:55] VITALS: BP 112/56; PULSE 69; RESP 18; TEMP 36.8; O2SAT 96
== END 2023-08-07 00:56 | disposition home or self-care (01) ==
PROVIDERS: Emergency Provider Internal Medicine
DX: L72.3 Sebaceous cyst (principal); R51.9 Headache, unspecified; F17.210 Nicotine dependence, cigarettes, uncomplicated
CPT/HCPCS: 99283; 99284

== ENCOUNTER 2023-08-13 22:36 | Emergency (ER) | payer OTHER, SELFPAY ==
--- NOTE | ~2023-08-13 | CT_ITS ---
EXAMINATION: CT HEAD WITHOUT CONTRAST CT CERVICAL SPINE WITHOUT CONTRAST CT FACIAL BONES WITHOUT CONTRAST CLINICAL INFORMATION: Injury. Pain. COMPARISON: None available. TECHNIQUE: Contiguous axial imaging was performed through the head, facial bones and cervical spine without intravenous administration of contrast. Sagittal and coronal reformatted images also obtained. This CT examination was performed using dose optimization techniques as appropriate, variously including the following: *Automated exposure control *Adjustment of mA and/or kV according to patient size (this includes techniques or standardized protocols for targeted exams where dose is matched to indication/reason for exam; i.e. extremities or head) *Use of iterative reconstruction technique DLP: 1160 mGy-cm FINDINGS: The lateral, third and fourth ventricles are normally outlined. The cortical sulci and basal cisterns are normally outlined as well. There is no acute territorial defect, hemorrhage or midline shift. The extra-axial spaces are unremarkable. Calvarium/scalp: Intact. Facial bones: No fracture is seen. There is a left frontal sinus opacity. There is a 1.5 cm cyst or polyp within the right maxillary sinus and mucosal thickening of the right sphenoid sinus. The mastoids are clear. Orbital structures are unremarkable. The soft tissues are also unremarkable. Cervical spine: There is straightening of the expected cervical spine curvature. Disc spaces are maintained. Spinal canal and neuroforamen are patent. The bone mineralization is normal. No fracture is seen. Soft tissues are unremarkable. The visualized upper lung hassan are clear. CT/CT facial bones wo IV con IMPRESSION: 1. No acute intracranial finding. 2. No facial bone fracture. 3. No acute cervical spine abnormality.
--- NOTE | ~2023-08-13 | CT_ITS ---
EXAMINATION: CT HEAD WITHOUT CONTRAST CT CERVICAL SPINE WITHOUT CONTRAST CT FACIAL BONES WITHOUT CONTRAST CLINICAL INFORMATION: Injury. Pain. COMPARISON: None available. TECHNIQUE: Contiguous axial imaging was performed through the head, facial bones and cervical spine without intravenous administration of contrast. Sagittal and coronal reformatted images also obtained. This CT examination was performed using dose optimization techniques as appropriate, variously including the following: *Automated exposure control *Adjustment of mA and/or kV according to patient size (this includes techniques or standardized protocols for targeted exams where dose is matched to indication/reason for exam; i.e. extremities or head) *Use of iterative reconstruction technique DLP: 1160 mGy-cm FINDINGS: The lateral, third and fourth ventricles are normally outlined. The cortical sulci and basal cisterns are normally outlined as well. There is no acute territorial defect, hemorrhage or midline shift. The extra-axial spaces are unremarkable. Calvarium/scalp: Intact. Facial bones: No fracture is seen. There is a left frontal sinus opacity. There is a 1.5 cm cyst or polyp within the right maxillary sinus and mucosal thickening of the right sphenoid sinus. The mastoids are clear. Orbital structures are unremarkable. The soft tissues are also unremarkable. Cervical spine: There is straightening of the expected cervical spine curvature. Disc spaces are maintained. Spinal canal and neuroforamen are patent. The bone mineralization is normal. No fracture is seen. Soft tissues are unremarkable. The visualized upper lung hassan are clear. CT/CT cervical spine wo IV con IMPRESSION: 1. No acute intracranial finding. 2. No facial bone fracture. 3. No acute cervical spine abnormality.
--- NOTE | ~2023-08-13 | CT_ITS ---
EXAMINATION: CT HEAD WITHOUT CONTRAST CT CERVICAL SPINE WITHOUT CONTRAST CT FACIAL BONES WITHOUT CONTRAST CLINICAL INFORMATION: Injury. Pain. COMPARISON: None available. TECHNIQUE: Contiguous axial imaging was performed through the head, facial bones and cervical spine without intravenous administration of contrast. Sagittal and coronal reformatted images also obtained. This CT examination was performed using dose optimization techniques as appropriate, variously including the following: *Automated exposure control *Adjustment of mA and/or kV according to patient size (this includes techniques or standardized protocols for targeted exams where dose is matched to indication/reason for exam; i.e. extremities or head) *Use of iterative reconstruction technique DLP: 1160 mGy-cm FINDINGS: The lateral, third and fourth ventricles are normally outlined. The cortical sulci and basal cisterns are normally outlined as well. There is no acute territorial defect, hemorrhage or midline shift. The extra-axial spaces are unremarkable. Calvarium/scalp: Intact. Facial bones: No fracture is seen. There is a left frontal sinus opacity. There is a 1.5 cm cyst or polyp within the right maxillary sinus and mucosal thickening of the right sphenoid sinus. The mastoids are clear. Orbital structures are unremarkable. The soft tissues are also unremarkable. Cervical spine: There is straightening of the expected cervical spine curvature. Disc spaces are maintained. Spinal canal and neuroforamen are patent. The bone mineralization is normal. No fracture is seen. Soft tissues are unremarkable. The visualized upper lung hassan are clear. CT/CT head/brain wo IV con IMPRESSION: 1. No acute intracranial finding. 2. No facial bone fracture. 3. No acute cervical spine abnormality.
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
[2023-08-13 22:41] VITALS: BP 140/100; PULSE 110; O2SAT 97; BMI 28.4
[2023-08-13 22:43] VITALS: BP 123/72; PULSE 92; RESP 14; TEMP 36.7; O2SAT 94
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
[2023-08-13] MEDS: Acetaminophen 325 MG TABLET 650 MG PO (23:16)
[2023-08-14 00:40] VITALS: BP 123/72; PULSE 92; RESP 14; TEMP 36.7; O2SAT 94
== END 2023-08-14 00:40 | disposition home or self-care (01) ==
PROVIDERS: Emergency Provider Internal Medicine
DX: R51.9 Headache, unspecified (principal); S09.90XA Unspecified injury of head, initial encounter; Y04.2XXA Assault by strike against or bumped into by another person, initial encounter; Y93.89 Activity, other specified; Y92.9 Unspecified place or not applicable; Y99.9 Unspecified external cause status; M54.9 Dorsalgia, unspecified
CPT/HCPCS: 70450; 70486; 72125; 99283; 99284

== ENCOUNTER 2023-09-25 18:40 | Emergency (ER) | payer OTHER, SELFPAY ==
[2023-09-25 18:59] VITALS: BP 118/63; PULSE 77; RESP 17; TEMP 36.6; O2SAT 96
[2023-09-25 19:25] VITALS: BP 124/78; PULSE 90; O2SAT 98
[2023-09-25 19:26] VITALS: BP 118/63; PULSE 77; RESP 17; TEMP 36.6; O2SAT 96; BMI 29.0
--- NOTE | 2023-09-25 19:31 | PC.NURSE ---
Pt ca&ox4, no signs of distress. Pt denies pain at this time Reports he requires med clearance in order to get placed in a grp home. Brooks Newton spoke with dr enriquez. Plan of care ongoing.
[2023-09-25 19:36] LABS: MANUAL DIFF FLAG NO
--- NOTE | 2023-09-25 19:39 | ED_ITS ---
HPI - General Adult General Chief complaint: General Medical Stated complaint: needs med eval for GH placement, behavioral issues Time Seen by Provider: 09/25/23 19:04 History of Present Illness HPI narrative: Patient is a 18-year-old male wants to go to a rest bed. Sent in for medical clearance. Has a history of ADHD. History of adjustment disorder. Currently is on tramadol, Concerta, Risperdal. Patient denies any suicidal homicidal ideation only here for medical clearance as per the rest bed., Related Data Previous Rx's ?Medication ?Instructions ?Recorded methylphenidate HCl 36 mg 36 mg PO DAILY #7 tabs 01/12/22 tablet,extended release 24 hr (Concerta) risperidone 0.5 mg tablet 0.5 mg PO DAILY #14 tabs 07/21/23 trazodone 50 mg tablet 50 mg PO BEDTIME #14 tabs 07/21/23 benzonatate 100 mg capsule 100 mg PO TID PRN cough #14 caps 07/31/23 benzonatate 200 mg capsule 200 mg PO TID PRN cough #30 caps 08/01/23 ibuprofen 600 mg tablet 600 mg PO Q6H PRN fever or pain 08/01/23 #30 tabs cephalexin 500 mg capsule 500 mg PO QID 10 days #40 caps 08/07/23 Allergies Allergy/AdvReac Type Severity Reaction Status Date / Time No Known Allergies Allergy Unknown UNKNOWN Verified 09/25/23 19:29 [NO KNOWN ALLERGIES] Review of Systems 2 Review of Systems: No fever no chills no chest pain Yes all other systems are reviewed and are negative [facility] Past Medical History Attestation statement: The following information was validated with the patient. Medical History ADHD Adjustment reaction with mixed disturbance of emotions and conduct No pertinent past medical history Social History Social History Household Members: Other Household Members Other:: grandmother Housing: Unknown / Unable to assess Do you presently have visiting nurse or other home services: No Alcohol intake: current Alcohol intake frequency: holidays/special occasions only Patient Tobacco Use Status: Current everyday Tobacco user Smoked in Last 30 Days: No e-Cigarette/Vaping Use: Currently Using Second Hand Smoke Exposure: No Use of substances other than those prescribed or required for medical reasons: Yes Substance Use Type: Marijuana Advance Directives: No Advance Directives Information Provided: No Do you have a plan to hurt others: No Plan service: No Sexual orientation: Don't Know Physical Exam ED Vital Signs: Vital Signs - 24 hr 09/25/23 18:59 09/25/23 19:26 Temperature 97.9 F 97.9 F Pulse Rate 77 77 Respiratory Rate 17 17 Blood Pressure 118/63 118/63 Pulse Oximetry 96 96 Oxygen Delivery Method Room Air Room Air BMI result Body Mass Index 29.0 Appearance: Alert. Oriented X3. No acute distress. Eyes: Pupils equal, round and reactive to light. ENT: Pharynx normal. Neck: Normal inspection. Neck supple. No lymph nodes noted. No crepitus CVS: Normal heart rate and rhythm. Pulses normal. Normal S1 and S2 Respiratory: No respiratory distress. Breath sounds normal. No Wheezing. No rales Abdomen: Soft and nontender. No rigidity. No distention. good BS x4 Skin: Skin warm and dry. Normal skin color. Normal skin turgor. Extremities: No lower extremity edema. Neurovascular intact to all extremities. No Lacerations. No Rash Neuro: Oriented X 3. No motor deficit. No sensory deficit. Moving all extermities. No slurred speech Medical Decision Making Medical Decision Making MDM Narrative: Patient well-appearing not acute distress. Neurologically intact. Discussed with Parvez from rest bed. Wanted a tox screen wanted basic labs COVID test. U tox. Alcohol level. They are all ordered as per rest meds recommendations. Currently in stable condition. Patient well-appearing labs are unremarkable tox screen positive for marijuana only. COVID flu RSV were all negative. Will discharge patient to [facility]. In stable condition. Differential Diagnosis Differential Diagnoses: The differential diagnosis associated with the presentation includes COVID flu RSV hypoglycemia electrolyte abnormality Admission/Observation Consideration of admission/observation: Escalation of care including admission/observation considered Lab Data [facility] Lab Attestation statement: I reviewed the patient's lab results. 09/25/23 19:27 09/25/23 19:27 Labs: Lab Results 09/25/23 09/25/23 Range/Units 19:27 19:30 WBC 8.4 (4.8-10.8) X10*3/uL RBC 4.73 (4.60-5.80) X10*6/uL Hgb 14.8 (14.0-18.0) g/dl Hct 41.2 L (42.0-52.0) % MCV 87.1 (80.0-98.0) fL MCH 31.3 (27.0-33.0) pg MCHC 35.9 (31.0-36.0) g/dl RDW 12.7 (11.0-16.0) % Plt Count 272 (160-400) X10*3/uL MPV 8.5 L (9.4-12.4) fL Immature Gran % (Auto) 0.4 (0.0-0.4) % Neut % (Auto) 67.8 (45-73) % Lymph % (Auto) 22.5 (20-40) % Dickens % (Auto) 8.5 (2-11) % Eos % (Auto) 0.4 (0-4) % Baso % (Auto) 0.4 (0-2) % Lymph # (Auto) 1.9 (1.2-4.9) X10*3/uL Dickens # (Auto) 0.7 (0.1-1.2) X10*3/uL Eos # (Auto) 0.0 (0.0-0.4) X10*3/uL Baso # (Auto) 0.0 (0.0-0.2) X10*3/uL Abs Immat Gran (auto) 0.03 (0.00-0.03) X10*3/uL Absolute Neuts (auto) 5.7 (2.0-8.3) x10*3/uL Absolute Nucleated RBC 0.000 (0.0-0.012) X10*3/uL Nucleated RBC % (auto) 0.0 (0.0-0.2) /100WBC Sodium 139 (135-145) mmol/L Potassium 3.8 (3.3-5.1) mmol/L Chloride 108 (96-108) mmol/L Carbon Dioxide 23 (22-29) mmol/L Anion Gap 12 (12-20) BUN 15 (9-16) mg/dL Creatinine 0.78 (0.5-1.4) mg/dL Estim Creat Clear Calc 151.4 Estimated GFR > 60 Random Glucose 95 (60-115) mg/dL Calcium 9.3 (8.4-10.2) mg/dL Urine Color Yellow Urine Appearance Clear Urine pH 6.5 (5.0-9.0) Ur Specific [place] >= 1.030 H (1.005-1.025) Urine Protein Trace (Neg-Trace) mg/dL Urine Glucose (UA) Negative (Negative) mg/dL Urine Ketones Trace (Negative) mg/dL Urine Blood Negative (Negative) Urine Nitrite Negative (Negative) Ur Leukocyte Esterase Negative (Negative) Urine RBC 0-2 (0-2) /HPF Urine WBC 0-5 (0-5) /HPF Ur Squamous Epith Cells 0-2 (0-2) /HPF Urine Bacteria None Seen (None Seen) Hyaline Casts 0-2 (0-2) /LPF Urine Opiates Screen Not Detected (Not Detect) Ur Buprenorphine Scrn Not Detected (Not Detect) ng/mL Ur Oxycodone Screen Not Detected (Not Detect) ng/mL Urine Methadone Screen Not Detected (Not Detect) ng/mL Urine Fentanyl Screen Not Detected (Not Detect) Ur Barbiturates Screen Not Detected (Not Detect) Ur Phencyclidine Scrn Not Detected (Not Detect) Ur Amphetamines Screen Not Detected (Not Detect) U Benzodiazepines Scrn Not Detected (Not Detect) Urine Cocaine Screen Not Detected (Not Detect) U Marijuana (THC) Screen POSITIVE H (Not Detect) Ethyl Alcohol < 10 mg/dL Influenza Type A (PCR) NEGATIVE (Negative) Influenza Type B (PCR) NEGATIVE (Negative) RSV RNA Qual (PCR) NEGATIVE (Negative) SARS-CoV-2 RNA (RT-PCR) NEGATIVE (Negative) Prescription Management I considered prescription management with: Antiviral (Not needed) Social Determinants Patient?s care significantly limited by Social Determinants of Health including: Problems related to primary support group Discharge Plan Discharge Clinical Impression: Adjustment reaction with mixed disturbance of emotions and conduct, ADHD Patient Disposition: Home, Self-Care Instructions: ADHD in Adults (DC) Additional Instructions: Please go to rest bed right now Prescriptions: No Action methylphenidate HCl [Concerta] 36 mg tablet extended release 24hr 36 mg PO DAILY Qty: 7 0RF Rx Instructions: Partial Fill upon patient request. trazodone 50 mg tablet 50 mg PO BEDTIME Qty: 14 0RF risperidone 0.5 mg tablet 0.5 mg PO DAILY Qty: 14 0RF benzonatate 200 mg capsule 200 mg PO TID PRN (Reason: cough) Qty: 30 0RF ibuprofen 600 mg tablet 600 mg PO Q6H PRN (Reason: fever or pain) Qty: 30 0RF benzonatate 100 mg capsule 100 mg PO TID PRN (Reason: cough) Qty: 14 0RF cephalexin 500 mg capsule 500 mg PO QID 10 Days Qty: 40 0RF Referrals: Dora Castaneda MD [Primary Care Provider] - Print Language: Turkish
[2023-09-25 19:51] LABS: Basophils Percent Auto 0.4 % (0-2); Eosinophils Percent Auto 0.4 % (0-4); Hematocrit 41.2 % (42.0-52.0); Hemoglobin 14.8 g/dl (14.0-18.0); Imm Gran Abs Auto 0.03 X10*3/uL (0.00-0.03); Imm Gran Pct Auto 0.4 % (0.0-0.4); Lymphocytes Absolute Auto 1.9 X10*3/uL (1.2-4.9); Lymphocytes Percent Auto 22.5 % (20-40); Mean Corpuscular HGB Conc 35.9 g/dl (31.0-36.0); Mean Corpuscular Hemoglobin 31.3 pg (27.0-33.0); Mean Corpuscular Volume 87.1 fL (80.0-98.0); Mean Platelet Volume 8.5 fL (9.4-12.4); Monocytes Absolute Auto 0.7 X10*3/uL (0.1-1.2); Monocytes Percent Auto 8.5 % (2-11); Neutrophils Absolute Auto 5.7 x10*3/uL (2.0-8.3); Neutrophils Percent Auto 67.8 % (45-73); Platelet Count 272 X10*3/uL (160-400); Red Blood Count 4.73 X10*6/uL (4.60-5.80); Red Cell Distribution Width 12.7 % (11.0-16.0); White Blood Count 8.4 X10*3/uL (4.8-10.8)
[2023-09-25 19:52] LABS: Appearance Urine Clear; Color Urine Yellow; Glucose Urine UA Negative (Negative); Leukocyte Esterase Urine Negative (Negative); Nitrite Urine Negative (Negative); PH 6.5 (5.0-9.0); Specific Gravity - Urine >= 1.030 (1.005-1.025); Urine Blood Negative (Negative); Urine Ketones Trace mg/dL (Negative); Urine Protein Trace mg/dL (Neg-Trace)
[2023-09-25 19:57] LABS: Bacteria Urine None Seen (None Seen); Hyaline Casts Urine 0-2 /LPF (0-2); RBC Urine 0-2 /HPF (0-2); Squamous Epithelial Cell Urine 0-2 /HPF (0-2); WBC Urine 0-5 /HPF (0-5)
[2023-09-25 20:01] LABS: Anion Gap 12 (12-20); Blood Urea Nitrogen 15 mg/dL (9-16); Calcium 9.3 mg/dL (8.4-10.2); Carbon Dioxide 23 mmol/L (22-29); Chloride 108 mmol/L (96-108); Creatinine Clr Calc Pharmacy 151.4; Estimated Glomerular Filt Rate > 60; Ethanol < 10 mg/dL; Glucose Random 95 mg/dL (60-115); Potassium 3.8 mmol/L (3.3-5.1); Sodium 139 mmol/L (135-145)
[2023-09-25 20:04] LABS: Amphetamine Screen Urine Not Detected (Not Detect); Barbiturates, Urine Not Detected (Not Detect); Benzodiazepines Screen Urine Not Detected (Not Detect); Buprenorphine Scr Not Detected (Not Detect); Cannabinoid Screen Urine POSITIVE (Not Detect); Cocaine Screen Urine Not Detected (Not Detect); Fentanyl, urine Not Detected (Not Detect); Methadone Screen, Urine Not Detected (Not Detect); Opiate Screen Urine Not Detected (Not Detect); Oxycodone Screen Urine Not Detected (Not Detect); Phencyclidine Screen Urine Not Detected (Not Detect)
[2023-09-25 20:20] LABS: Influenza A PCR NEGATIVE (Negative); Influenza B PCR NEGATIVE (Negative); Resp Syncy Virus RNA Qual PCR NEGATIVE (Negative); SARS COV2 PCR INHOUSE NEGATIVE (Negative)
[2023-09-25 20:49] VITALS: BP 110/60; PULSE 82; RESP 14; TEMP 36.7; O2SAT 92
[2023-09-25 20:50] VITALS: BP 110/68; PULSE 82; RESP 14; TEMP 36.7; O2SAT 92
== END 2023-09-25 20:52 | disposition home or self-care (01) ==
PROVIDERS: Emergency Provider Emergency Medicine Emergency Medical Services; PCP Pediatrics
DX: F90.9 Attention-deficit hyperactivity disorder, unspecified type (principal); F43.20 Adjustment disorder, unspecified; Z03.818 Encounter for observation for suspected exposure to other biological agents ruled out; Z79.899 Other long term (current) drug therapy
CPT/HCPCS: 0241U; 36415; 80048; 80307; 81001; 85025; 99284

== ENCOUNTER 2023-10-22 00:20 | Emergency (ER) | payer OTHER, SELFPAY ==
[2023-10-22 00:35] VITALS: BP 138/70; BP 140/98; PULSE 114; PULSE 99; RESP 17; TEMP 36.8; O2SAT 98; O2SAT 99; BMI 17.8
[2023-10-22 00:50] VITALS: O2SAT 98
--- NOTE | 2023-10-22 01:58 | ED.URI ---
HPI - URI/Sore Throat General Chief Complaint: Upper Respiratory Symptoms Stated Complaint: sob Time Seen by Provider: 10/22/23 00:29 Source: patient Mode of arrival: EMS Limitations: no limitations History of Present Illness ED Provider: Dr. Isak Hernandez HPI Narrative: 18-year-old male with a history of ADHD, adjustment reaction with mixed disturbance/emotion/conduct disorder who presents emergency department for evaluation of of upper respiratory symptoms patient states that he has had a nonproductive cough, fever, chills, chest pain, shortness of breath, dyspnea on exertion, diarrhea times 2-3 days. Patient is concerned that he may have COVID therefore came to emergency department for evaluation. Related Data Previous Rx's ?Medication ?Instructions ?Recorded methylphenidate HCl 36 mg 36 mg PO DAILY #7 tabs 01/12/22 tablet,extended release 24 hr (Concerta) risperidone 0.5 mg tablet 0.5 mg PO DAILY #14 tabs 07/21/23 trazodone 50 mg tablet 50 mg PO BEDTIME #14 tabs 07/21/23 benzonatate 100 mg capsule 100 mg PO TID PRN cough #14 caps 07/31/23 benzonatate 200 mg capsule 200 mg PO TID PRN cough #30 caps 08/01/23 ibuprofen 600 mg tablet 600 mg PO Q6H PRN fever or pain 08/01/23 #30 tabs cephalexin 500 mg capsule 500 mg PO QID 10 days #40 caps 08/07/23 ibuprofen 400 mg tablet 400 mg PO TID PRN fever or pain 10/22/23 #30 tabs Allergies Allergy/AdvReac Type Severity Reaction Status Date / Time No Known Allergies Allergy Unknown UNKNOWN Verified 10/22/23 00:41 [NO KNOWN ALLERGIES] Review of Systems Review of Systems: Yes all other systems are reviewed and are negative [facility] Past Medical History [facility] Narrative: Social history: He states he lives in a [facility]. He does vape tobacco products. He occasionally drinks alcohol. Denies drug use. Medical History ADHD Adjustment reaction with mixed disturbance of emotions and conduct No pertinent past medical history Social History Social History Household Members: Other Household Members Other:: grandmother Housing: Unknown / Unable to assess Do you presently have visiting nurse or other home services: No Alcohol intake: current Alcohol intake frequency: holidays/special occasions only Patient Tobacco Use Status: Current everyday Tobacco user Smoked in Last 30 Days: Yes e-Cigarette/Vaping Use: Currently Using Second Hand Smoke Exposure: No Use of substances other than those prescribed or required for medical reasons: No Substance Use Type: Marijuana Advance Directives: No Advance Directives Information Provided: No Do you have a plan to hurt others: No Plan service: No Sexual orientation: Don't Know Physical Exam Vital Signs: Vital Signs: Last Vital Signs Temp 98.2 F 10/22/23 00:35 Pulse 99 10/22/23 00:35 Resp 17 10/22/23 00:35 BP 138/70 10/22/23 00:35 Pulse Ox 98 10/22/23 00:50 O2 Del Method Room Air 10/22/23 00:50 BMI result Body Mass Index 17.8 Vital signs were normal Exam: General: Awake, alert in no distress Head: Normocephalic, atraumatic EENT: PERRL, Lids normal, sclera normal, conjunctiva normal, nose normal , ears normal, throat without erythema or exudates Neck: Supple, no adenopathy Lung: breath sounds symmetric, no wheezing, rales or rhonchi Chest: symmetric movement, nontender Heart: regular rate and rhythm, normal S1, S2 no murmurs or rubs Abdomen: soft, non-tender, nondistended, normal bowel sounds Back: no vertebral tenderness, no CVAT Extremities: no deformities, moves all extremities symmetrically Neuro: Awake, alert, oriented, normal speech, cranial nerves intact, moves all extremities symmetrically Psych: Pleasant, cooperative Medical Decision Making Medical Decision Making MDM Narrative: 18-year-old male with a history of ADHD, adjustment reaction with mixed disturbance/emotion/conduct disorder who presents emergency department for evaluation of of upper respiratory symptoms with symptoms including nonproductive cough, fever, chills, chest pain, shortness of breath, dyspnea on exertion and diarrhea. Vital signs were normal. Physical examination was unremarkable Differential diagnosis: ?Includes but is not limited to upper respiratory tract infection, viral syndrome, COVID-19, influenza, RSV Following evaluation was ordered: COVID-19, RSV, influenza Patient was initially treated with the following: Ibuprofen 400 mg orally Course: Patient's physical examination was unremarkable. Patient's COVID-19, RSV and influenza tests were negative. Patient's symptoms are consistent with an upper respiratory viral infection. Patient was given ibuprofen 400 mg orally and prescribed ibuprofen 400 mg 3 times a day as needed for fever, chills and pain. Patient will be discharged back to his [facility]. Admission/Observation Consideration of admission/observation: Escalation of care including admission/observation considered Lab Data MDM Lab Attestation statement: I reviewed the patient's lab results. My independent interpretation patient's laboratory evaluation is as follows: COVID-19, RSV and influenza were negative. Labs: Lab Results 10/22/23 Range/Units 01:36 Influenza Type A (PCR) NEGATIVE (Negative) Influenza Type B (PCR) NEGATIVE (Negative) RSV RNA Qual (PCR) NEGATIVE (Negative) SARS-CoV-2 RNA (RT-PCR) NEGATIVE (Negative) Prescription Management I considered prescription management with: Pain Medication Chronic Conditions Patient?s care impacted by: Other (Psychiatric illness) Discharge Plan Discharge Clinical Impression: Viral upper respiratory infection Patient Disposition: Home, Self-Care Instructions: Viral Syndrome (ED) Additional Instructions: Your COVID-19, RSV and influenza tests were negative. Your symptoms are consistent with a viral upper respiratory tract infection. Take ibuprofen 400 mg pills, 1 pills every 6 hours as needed for pain or fever. Continue taking your other medications as prescribed by your providers. Follow-up with your doctor in 2 days. Please return to the emergency department if your symptoms get worse or if you develop any symptoms that are concerning to you. Prescriptions: New ibuprofen 400 mg tablet 400 mg PO TID PRN (Reason: fever or pain) Qty: 30 0RF No Action methylphenidate HCl [Concerta] 36 mg tablet extended release 24hr 36 mg PO DAILY Qty: 7 0RF Rx Instructions: Partial Fill upon patient request. trazodone 50 mg tablet 50 mg PO BEDTIME Qty: 14 0RF risperidone 0.5 mg tablet 0.5 mg PO DAILY Qty: 14 0RF benzonatate 200 mg capsule 200 mg PO TID PRN (Reason: cough) Qty: 30 0RF ibuprofen 600 mg tablet 600 mg PO Q6H PRN (Reason: fever or pain) Qty: 30 0RF benzonatate 100 mg capsule 100 mg PO TID PRN (Reason: cough) Qty: 14 0RF cephalexin 500 mg capsule 500 mg PO QID 10 Days Qty: 40 0RF Print Language: Nauruan
[2023-10-22 02:17] LABS: Influenza A PCR NEGATIVE (Negative); Influenza B PCR NEGATIVE (Negative); Resp Syncy Virus RNA Qual PCR NEGATIVE (Negative); SARS COV2 PCR INHOUSE NEGATIVE (Negative)
[2023-10-22 03:32] VITALS: BP 116/66; PULSE 89; RESP 16; TEMP 36.6; O2SAT 98
== END 2023-10-22 03:32 | disposition home or self-care (01) ==
PROVIDERS: Emergency Provider Emergency Medicine Emergency Medical Services; PCP Internal Medicine
DX: J06.9 Acute upper respiratory infection, unspecified (principal); J02.9 Acute pharyngitis, unspecified; R06.02 Shortness of breath; R05.9 Cough, unspecified; R50.9 Fever, unspecified; R07.89 Other chest pain; F17.210 Nicotine dependence, cigarettes, uncomplicated; Z03.818 Encounter for observation for suspected exposure to other biological agents ruled out
CPT/HCPCS: 0241U; 99283; 99284

== ENCOUNTER 2023-11-01 19:03 | Emergency (ER) | payer OTHER, SELFPAY ==
[2023-11-01 19:10] VITALS: BP 118/98; O2SAT 100
--- NOTE | 2023-11-01 19:11 | ED_ITS ---
HPI - General Adult General Chief complaint: Headache Stated complaint: Headache since last night Time Seen by Provider: 11/01/23 20:37 Source: patient, RN notes reviewed and old records reviewed Mode of arrival: ambulatory Limitations: no limitations History of Present Illness ED Provider: Stu WERNER narrative: 18-year-old male presents for evaluation of a headache. Patient reports that he had a headache at 11:00 p.m. last night before he went to bed He reports that the headache resolved when he woke up Patient states that this morning he heard 3 dogs barking outside which causes h eadaches return He reports his entire head hurts He denies associated symptoms including nausea vomiting, lightheadedness He denies any fevers, chills, neck pain He denies any URI symptoms Patient states that he is overly stressed. He reports that he recently lost his best friend Related Data Previous Rx's ?Medication ?Instructions ?Recorded methylphenidate HCl 36 mg 36 mg PO DAILY #7 tabs 01/12/22 tablet,extended release 24 hr (Concerta) risperidone 0.5 mg tablet 0.5 mg PO DAILY #14 tabs 07/21/23 trazodone 50 mg tablet 50 mg PO BEDTIME #14 tabs 07/21/23 benzonatate 100 mg capsule 100 mg PO TID PRN cough #14 caps 07/31/23 benzonatate 200 mg capsule 200 mg PO TID PRN cough #30 caps 08/01/23 ibuprofen 600 mg tablet 600 mg PO Q6H PRN fever or pain 08/01/23 #30 tabs cephalexin 500 mg capsule 500 mg PO QID 10 days #40 caps 08/07/23 ibuprofen 400 mg tablet 400 mg PO TID PRN fever or pain 10/22/23 #30 tabs Allergies Allergy/AdvReac Type Severity Reaction Status Date / Time No Known Allergies Allergy Unknown UNKNOWN Verified 11/01/23 19:14 [NO KNOWN ALLERGIES] Review of Systems Constitutional: Constitutional: Denies chills, Denies fever(s) and Reports headache(s) Eyes: Eyes: Denies blurry vision, Denies exophthalmos and Denies change in vision ENT: Reports headache(s) and Denies neck pain Respiratory: Respiratory: Denies cough Gastrointestinal: Gastrointestinal: Denies nausea and Denies vomiting Musculoskeletal: Musculoskeletal: Denies neck pain Integumentary/Breasts: Skin/Breast: Denies rash Neurologic: Reports headache(s) PMFSH Past Medical History Medical History ADHD Adjustment reaction with mixed disturbance of emotions and conduct No pertinent past medical history Social History Social History Household Members: Other Household Members Other:: grandmother Housing: Unknown / Unable to assess Do you presently have visiting nurse or other home services: No Alcohol intake: current Alcohol intake frequency: holidays/special occasions only Patient Tobacco Use Status: Current everyday Tobacco user e-Cigarette/Vaping Use: Currently Using Second Hand Smoke Exposure: No Substance Use Type: Marijuana Advance Directives: No Advance Directives Information Provided: No service: No Sexual orientation: Don't Know Physical Exam ED Vital Signs: Vital Signs - 24 hr 11/01/23 19:13 11/01/23 21:27 Temperature 98.9 F 98.3 F Pulse Rate 98 81 Respiratory Rate 16 16 Blood Pressure 137/89 146/65 H Pulse Oximetry 97 98 Oxygen Delivery Method Room Air BMI result Body Mass Index 25.8 Const General: healthy appearing, comfortable, no acute distress, alert and awake Nutritional Appearance: well nourished Orientation/consciousness: patient oriented x3 HENMT Head: Yes normocephalic and Yes atraumatic Eyes Eyelids: Yes eyelids normal Conjunctivae: conjunctivae normal Sclerae: sclerae normal Corneas: corneas normal Pupils: Equal, round and reactive pupils present EOM: EOMs intact bilaterally Neck Neck: Yes full ROM and Yes no meningeal signs Resp Effort & Inspection: normal respiratory effort, able to speak in complete sentences and not labored Skin General skin exam: elasticity normal Neuro General: patient oriented x3 and no meningeal signs Cranial nerves: Yes CN's II-XII intact bilaterally, Yes Equal, round and reactive pupils present and Yes Bilaterally intact EOM present Cognition (Neuro): normal cognition Extrem Other: Moving all extremities well without any obvious deformities Course Course Course Narrative: This is an RME done by [facility] Villar: Additional HPI, ROS, PE not included below will be deferred to primary provider. 18-year-old male presenting with an intermittent headache since last night. It feels like my head is gonna explode. Denies trauma fevers chills nausea vomiting. Appearance: Alert.? Oriented X3.? No acute cardiopulmonary distress.? Head: Normocephalic, atraumatic, no step-offs or deformities CVS: Pulses normal.? Respiratory: No respiratory distress.? Skin: ? Normal skin color. Neuro: Oriented X 3. Psych: Presents younger than stated age? Medications Administered Discontinued Medications Generic Name Dose Route Start Last Admin Trade Name Freq PRN Reason Stop Dose Admin Acetaminophen/Butalbital/Caffeine 1 tab 11/01/23 20:56 11/01/23 21:07 Butalb/Acetamin/Caff 50/325/40 Tablet PO 11/01/23 20:57 1 tab ONCE ONE Administration Medical Decision Making Medical Decision Making [facility] Narrative: 18-year-old male presents for evaluation of a headache. He has a reassuring neuro exam, his headache has been intermittent. He has no fever, neck pain or URI symptoms, infectious pathology less likely. I have a low suspicion for CVA, intracranial mass, intracranial bleed given the reassuring exam. We will treat with Fioricet . Patient states he is very stressed over the recent loss of his friend. The patient is adamant that he is not suicidal. I offered to let him speak with the care team and thus far he does not wish to. He reports that he has resources in the community Differential Diagnosis Differential Diagnoses: The differential diagnosis associated with the presentation includes Acute headache Anxiety Tension headache Migraine headache Discharge Plan Discharge Clinical Impression: Headache, Depression Patient Disposition: Home, Self-Care Instructions: Depression (ED), Acute Headache (ED) Additional Instructions: Use ibuprofen or Tylenol for any further headaches. Follow-up with [facility] at the number provided Return to the ER for any new or worsening symptoms, especially if you are having any thoughts of harming yourself Prescriptions: No Action methylphenidate HCl [Concerta] 36 mg tablet extended release 24hr 36 mg PO DAILY Qty: 7 0RF Rx Instructions: Partial Fill upon patient request. trazodone 50 mg tablet 50 mg PO BEDTIME Qty: 14 0RF risperidone 0.5 mg tablet 0.5 mg PO DAILY Qty: 14 0RF benzonatate 200 mg capsule 200 mg PO TID PRN (Reason: cough) Qty: 30 0RF ibuprofen 600 mg tablet 600 mg PO Q6H PRN (Reason: fever or pain) Qty: 30 0RF benzonatate 100 mg capsule 100 mg PO TID PRN (Reason: cough) Qty: 14 0RF cephalexin 500 mg capsule 500 mg PO QID 10 Days Qty: 40 0RF ibuprofen 400 mg tablet 400 mg PO TID PRN (Reason: fever or pain) Qty: 30 0RF Print Language: Egyptian
[2023-11-01 19:13] VITALS: BP 137/89; PULSE 98; RESP 16; TEMP 37.2; O2SAT 97; BMI 25.8
[2023-11-01] MEDS: Butalb/Acetamin/Caff 50/325/40 TABLET 1 TAB PO (21:07)
[2023-11-01 21:27] VITALS: BP 146/65; PULSE 81; RESP 16; TEMP 36.8; O2SAT 98
[2023-11-01 22:56] VITALS: BP 146/65; PULSE 81; RESP 16; TEMP 36.8; O2SAT 98
== END 2023-11-01 22:57 | disposition home or self-care (01) ==
PROVIDERS: Emergency Provider Internal Medicine
DX: R51.9 Headache, unspecified (principal); F32.A Depression, unspecified; Z79.899 Other long term (current) drug therapy
CPT/HCPCS: 99283

== ENCOUNTER 2023-12-16 22:58 | Emergency (ER) | payer OTHER, SELFPAY ==
[2023-12-16 23:02] VITALS: BP 141/87; PULSE 111; RESP 18; TEMP 36.6; O2SAT 95; BMI 21.9
[2023-12-16 23:30] LABS: Appearance Urine Clear; Color Urine Yellow; Glucose Urine UA Negative (Negative); Leukocyte Esterase Urine Negative (Negative); Nitrite Urine Negative (Negative); Urine Blood Negative (Negative); Urine Ketones Negative (Negative); Urine Protein Negative (Neg-Trace)
[2023-12-16 23:41] LABS: Bacteria Urine None Seen (None Seen); Hyaline Casts Urine 0-2 /LPF (0-2); RBC Urine 0-2 /HPF (0-2); Squamous Epithelial Cell Urine 0-2 /HPF (0-2); WBC Urine 0-5 /HPF (0-5)
--- NOTE | 2023-12-16 23:44 | ED_ITS ---
HPI - Abdominal Pain General Chief Complaint: Abdominal Pain Stated Complaint: abd pain Time Seen by Provider: 12/16/23 23:35 Source: patient Mode of arrival: ambulatory Limitations: no limitations History of Present Illness ED Provider: MIMI HPI narrative: 18 yo male with PMH of ADHD here with c/o diffuse abdominal pain and intermittent loose stools x 3 weeks. No fevers, n/v. Today pain was worse after walking. No blood in stools noted. He states this started after eating [employer] 3 weeks ago. The pain is lower but made worse with eating. He has never had this before. MD elicited complaint: abdominal pain Pertinent past history: none Onset (ago): week(s) (3) Pain Consistency: intermittent Location: diffuse Severity: moderate Quality: cramping Radiation: none Migration to: no migration Exacerbating factors: eating Relieving factors: nothing Context: possible food poisoning Associated symptoms: diarrhea Related Data Previous Rx's ?Medication ?Instructions ?Recorded methylphenidate HCl 36 mg 36 mg PO DAILY #7 tabs 01/12/22 tablet,extended release 24 hr (Concerta) risperidone 0.5 mg tablet 0.5 mg PO DAILY #14 tabs 07/21/23 trazodone 50 mg tablet 50 mg PO BEDTIME #14 tabs 07/21/23 benzonatate 100 mg capsule 100 mg PO TID PRN cough #14 caps 07/31/23 benzonatate 200 mg capsule 200 mg PO TID PRN cough #30 caps 08/01/23 ibuprofen 600 mg tablet 600 mg PO Q6H PRN fever or pain 08/01/23 #30 tabs cephalexin 500 mg capsule 500 mg PO QID 10 days #40 caps 08/07/23 ibuprofen 400 mg tablet 400 mg PO TID PRN fever or pain 10/22/23 #30 tabs famotidine 20 mg tablet (Heartburn 20 mg PO DAILY PRN abdominal pain 12/17/23 Prevention) #20 tabs Allergies Allergy/AdvReac Type Severity Reaction Status Date / Time No Known Allergies Allergy Unknown UNKNOWN Verified 12/16/23 23:02 [NO KNOWN ALLERGIES] Review of Systems Review of Systems Constitutional : No Weight loss, No Fever, No Chills ENT/Mouth : No sore throat, No Rhinorrhea Eyes: No Swelling, No Redness Cardiovascular : No Chest Pain, No SOB, NoEdema Respiratory : No Cough, No Sputum, No Wheezing Gastrointestinal : Positive Nausea, no Vomiting, positive Diarrhea, positive abdominal Pain, No Hematochezia, No Melena Genitourinary : No Dysuria, No Urinary Frequency, No Hematuria, No Urgency Musculoskeletal : No joint pain, No Myalgias, No Joint Swelling Skin : No Skin Lesions, No rash Neuro : No Weakness, No Numbness, No Dizziness, No Headache All other systems reviewed and are negative. [facility] Past Medical History Attestation statement: The following information was validated with the patient. Source: old records reviewed Medical History ADHD Adjustment reaction with mixed disturbance of emotions and conduct No pertinent past medical history Social History Social History Household Members: Other Household Members Other:: grandmother Housing: Unknown / Unable to assess Do you presently have visiting nurse or other home services: No Alcohol intake: current Alcohol intake frequency: holidays/special occasions only Patient Tobacco Use Status: Current everyday Tobacco user e-Cigarette/Vaping Use: Currently Using Second Hand Smoke Exposure: No Substance Use Type: Marijuana Advance Directives: No service: No Sexual orientation: Don't Know Physical Exam ED Vital Signs: Vital Signs - 24 hr 12/16/23 23:02 Temperature 97.9 F Pulse Rate 111 H Respiratory Rate 18 Blood Pressure 141/87 H Pulse Oximetry 95 Oxygen Delivery Method Room Air BMI result Body Mass Index 21.9 Appearance: Alert. Oriented X3. No acute distress. Eyes: Pupils equal, round and reactive to light. ENT: Pharynx normal. Neck: Normal inspection. Neck supple. CVS: Normal heart rate and rhythm. Pulses normal. Respiratory: No respiratory distress. Breath sounds normal. Abdomen: Soft and mild diffuse left side ttp no rebound or guarding Skin: Skin warm and dry. Normal skin color. Normal skin turgor. Extremities: No lower extremity edema. No calf ttp Neuro: Oriented X 3. No motor deficit. No sensory deficit. Medical Decision Making Medical Decision Making MDM Narrative: 18 yo male with PMH of ADHD here with c/o abdominal pain and diarrhea after eating [employer] 3 weeks ago. No fevers, no bloody stools reported. He notes symptoms are on and off. Today they seemed worse after him and his friend had a to walk a long time after getting off the bus. He is eating and drinking. He drinks a lot of juice and soda. Differential Diagnosis Differential Diagnoses: The differential diagnosis associated with the presentation includes diarrhea, colitis, GERD Admission/Observation Consideration of admission/observation: Escalation of care including admission/observation considered feels better mild bump in LFTs does not want to stay for US offered Lab Data MDM Lab Attestation statement: I reviewed the patient's lab results. 12/16/23 23:53 12/16/23 23:53 Labs: Lab Results 12/16/23 12/16/23 Range/Units 23:14 23:53 WBC 8.9 (4.8-10.8) X10*3/uL RBC 4.92 (4.60-5.80) X10*6/uL Hgb 15.0 (14.0-18.0) g/dl Hct 42.0 (42.0-52.0) % MCV 85.4 (80.0-98.0) fL MCH 30.5 (27.0-33.0) pg MCHC 35.7 (31.0-36.0) g/dl RDW 12.2 (11.0-16.0) % Plt Count 311 (160-400) X10*3/uL MPV 8.5 L (9.4-12.4) fL Immature Gran % (Auto) 0.2 (0.0-0.4) % Neut % (Auto) 68.0 (45-73) % Lymph % (Auto) 22.1 (20-40) % [place] % (Auto) 8.9 (2-11) % Eos % (Auto) 0.5 (0-4) % Baso % (Auto) 0.3 (0-2) % Lymph # (Auto) 2.0 (1.2-4.9) X10*3/uL [place] # (Auto) 0.8 (0.1-1.2) X10*3/uL Eos # (Auto) 0.0 (0.0-0.4) X10*3/uL Baso # (Auto) 0.0 (0.0-0.2) X10*3/uL Abs Immat Gran (auto) 0.02 (0.00-0.03) X10*3/uL Absolute Neuts (auto) 6.0 (2.0-8.3) x10*3/uL Absolute Nucleated RBC 0.000 (0.0-0.012) X10*3/uL Nucleated RBC % (auto) 0.0 (0.0-0.2) /100WBC Sodium 139 (135-145) mmol/L Potassium 4.7 D (3.3-5.1) mmol/L Chloride 105 (96-108) mmol/L Carbon Dioxide 23 (22-29) mmol/L Anion Gap 16 (12-20) BUN 22 H (9-16) mg/dL Creatinine 0.87 (0.5-1.4) mg/dL Estim Creat Clear Calc 117.8 Estimated GFR > 60 Random Glucose 98 (60-115) mg/dL Calcium 9.7 (8.4-10.2) mg/dL Total Bilirubin 0.3 (0.0-1.0) mg/dL AST 50 H (5-37) U/L ALT 53 H (0-40) U/L Alkaline Phosphatase 61 (39-117) U/L C-Reactive Protein 0.11 (< or = 0.50) mg/dL Total Protein 7.7 (6.5-8.0) g/dL Albumin 4.3 (3.5-5.0) g/dL Lipase 12 (8-78) U/L Urine Color Yellow Urine Appearance Clear Urine pH 6.0 (5.0-9.0) Ur Specific [place] 1.020 (1.005-1.025) Urine Protein Negative (Neg-Trace) mg/dL Urine Glucose (UA) Negative (Negative) mg/dL Urine Ketones Negative (Negative) mg/dL Urine Blood Negative (Negative) Urine Nitrite Negative (Negative) Ur Leukocyte Esterase Negative (Negative) Urine RBC 0-2 (0-2) /HPF Urine WBC 0-5 (0-5) /HPF Ur Squamous Epith Cells 0-2 (0-2) /HPF Urine Bacteria None Seen (None Seen) Hyaline Casts 0-2 (0-2) /LPF Independent Historian Clinical information obtained from an independent historian. History obtained from or confirmed by: Friend External Record Review External record reviewed: Office record Tests considered The following testing was considered but not selected: US of abdomen Prescription Management I considered prescription management with: Other Medications Administered Discontinued Medications Generic Name Dose Route Start Last Admin Trade Name Williamq PRN Reason Stop Dose Admin Al Hydroxide/Mg Hydroxide 15 ml 12/16/23 23:54 12/17/23 00:15 Magnesium Hydrox/Alum Hydrox 30 Ml Oral.Susp PO 12/16/23 23:55 Not Given ONCE ONE Famotidine 20 mg 12/16/23 23:54 12/17/23 00:14 Famotidine 20 Mg Tablet PO 12/16/23 23:55 20 mg ONCE ONE Administration Lidocaine HCl 15 ml 12/16/23 23:54 12/17/23 00:15 Lidocaine Hcl Viscous 2 % 15 Ml Solution MUCOUS MEM 12/16/23 23:55 Not Given ONCE ONE Discharge Plan Discharge Clinical Impression: Abdominal pain Qualifiers: Abdominal location: generalized Qualified Code(s): R10.84 - Generalized abdominal pain Patient Disposition: Home, Self-Care Instructions: Abdominal Pain (ED) Additional Instructions: mild bump in your liver enzymes your doctor can repeat them next week return for worsening pain, bloody stools, fevers, unable to eat or drink or any other concerns you were offered an ultrasound of your liver but declined Prescriptions: New famotidine [Heartburn Prevention] 20 mg tablet 20 mg PO DAILY PRN (Reason: abdominal pain) Qty: 20 0RF No Action methylphenidate HCl [Concerta] 36 mg tablet extended release 24hr 36 mg PO DAILY Qty: 7 0RF Rx Instructions: Partial Fill upon patient request. trazodone 50 mg tablet 50 mg PO BEDTIME Qty: 14 0RF risperidone 0.5 mg tablet 0.5 mg PO DAILY Qty: 14 0RF benzonatate 200 mg capsule 200 mg PO TID PRN (Reason: cough) Qty: 30 0RF ibuprofen 600 mg tablet 600 mg PO Q6H PRN (Reason: fever or pain) Qty: 30 0RF benzonatate 100 mg capsule 100 mg PO TID PRN (Reason: cough) Qty: 14 0RF cephalexin 500 mg capsule 500 mg PO QID 10 Days Qty: 40 0RF ibuprofen 400 mg tablet 400 mg PO TID PRN (Reason: fever or pain) Qty: 30 0RF Print Language: Khmer
[2023-12-16 23:57] LABS: MANUAL DIFF FLAG NO
[2023-12-16 23:58] LABS: Basophils Percent Auto 0.3 % (0-2); Eosinophils Percent Auto 0.5 % (0-4); Imm Gran Abs Auto 0.02 X10*3/uL (0.00-0.03); Imm Gran Pct Auto 0.2 % (0.0-0.4); Lymphocytes Percent Auto 22.1 % (20-40); Mean Corpuscular HGB Conc 35.7 g/dl (31.0-36.0); Mean Corpuscular Hemoglobin 30.5 pg (27.0-33.0); Mean Corpuscular Volume 85.4 fL (80.0-98.0); Mean Platelet Volume 8.5 fL (9.4-12.4); Monocytes Absolute Auto 0.8 X10*3/uL (0.1-1.2); Monocytes Percent Auto 8.9 % (2-11); Platelet Count 311 X10*3/uL (160-400); Red Blood Count 4.92 X10*6/uL (4.60-5.80); Red Cell Distribution Width 12.2 % (11.0-16.0); White Blood Count 8.9 X10*3/uL (4.8-10.8)
[2023-12-17] MEDS: Famotidine 20 MG TABLET PO (00:14)
[2023-12-17 00:17] LABS: Lipase 12 U/L (8-78)
[2023-12-17 00:49] LABS: Alanine Aminotransferase 53 U/L (0-40); Albumin Level 4.3 g/dL (3.5-5.0); Alkaline Phosphatase 61 U/L (39-117); Anion Gap 16 (12-20); Aspartate Amino Transferase 50 U/L (5-37); Bilirubin Total 0.3 mg/dL (0.0-1.0); Blood Urea Nitrogen 22 mg/dL (9-16); C Reactive Protein 0.11 mg/dL (< or = 0.50); Calcium 9.7 mg/dL (8.4-10.2); Carbon Dioxide 23 mmol/L (22-29); Chloride 105 mmol/L (96-108); Creatinine Clr Calc Pharmacy 117.8; Estimated Glomerular Filt Rate > 60; Glucose Random 98 mg/dL (60-115); Potassium 4.7 mmol/L (3.3-5.1); Sodium 139 mmol/L (135-145); Total Protein 7.7 g/dL (6.5-8.0)
[2023-12-17 01:13] VITALS: BP 136/82; PULSE 100; RESP 18; TEMP 36.6; O2SAT 96
== END 2023-12-17 01:13 | disposition home or self-care (01) ==
PROVIDERS: Emergency Provider Emergency Medicine
DX: R10.84 Generalized abdominal pain (principal)
CPT/HCPCS: 36415; 80053; 81001; 83690; 85025; 86140; 99283

== ENCOUNTER 2024-06-23 21:57 | Emergency (ER) | payer OTHER, SELFPAY ==
[2024-06-23 22:06] VITALS: BP 136/84; PULSE 110; O2SAT 98
[2024-06-23 22:09] VITALS: BP 119/77; PULSE 101; RESP 18; TEMP 36.8; O2SAT 96; BMI 32.2
[2024-06-23 22:56] LABS: Alanine Aminotransferase 28 U/L (0-40); Albumin Level 4.5 g/dL (3.5-5.0); Alkaline Phosphatase 82 U/L (39-117); Anion Gap 16 (12-20); Aspartate Amino Transferase 34 U/L (5-37); Bilirubin Direct 0.1 mg/dL (0.0-0.5); Bilirubin Total 0.5 mg/dL (0.0-1.0); Blood Urea Nitrogen 16 mg/dL (9-16); Calcium 9.5 mg/dL (8.4-10.2); Carbon Dioxide 19 mmol/L (22-29); Chloride 108 mmol/L (96-108); Creatinine Clr Calc Pharmacy 157.7; Estimated Glomerular Filt Rate > 60; Glucose Random 99 mg/dL (60-115); Lipase 10 U/L (8-78); Potassium 3.9 mmol/L (3.3-5.1); Sodium 139 mmol/L (135-145); Total Protein 7.8 g/dL (6.5-8.0)
[2024-06-23 23:35] LABS: Basophils Percent Auto 0.4 % (0-2); Eosinophils Percent Auto 0.3 % (0-4); Hematocrit 44.8 % (42.0-52.0); Hemoglobin 15.8 g/dl (14.0-18.0); Imm Gran Abs Auto 0.02 X10*3/uL (0.00-0.03); Imm Gran Pct Auto 0.3 % (0.0-0.4); Lymphocytes Absolute Auto 1.7 X10*3/uL (1.2-4.9); Lymphocytes Percent Auto 22.6 % (20-40); Mean Corpuscular HGB Conc 35.3 g/dl (31.0-36.0); Mean Corpuscular Hemoglobin 30.7 pg (27.0-33.0); Mean Corpuscular Volume 87.2 fL (80.0-98.0); Mean Platelet Volume 8.7 fL (9.4-12.4); Monocytes Absolute Auto 0.8 X10*3/uL (0.1-1.2); Monocytes Percent Auto 9.7 % (2-11); Neutrophils Absolute Auto 5.2 x10*3/uL (2.0-8.3); Neutrophils Percent Auto 66.7 % (45-73); Platelet Count 315 X10*3/uL (160-400); Red Blood Count 5.14 X10*6/uL (4.60-5.80); Red Cell Distribution Width 12.7 % (11.0-16.0); White Blood Count 7.7 X10*3/uL (4.8-10.8)
[2024-06-24] LABS: Acetaminophen LAB < 3 mcg/mL (<30); Salicylate < 5.0 mg/dL (15-30)
--- NOTE | 2024-06-24 00:03 | ED.PSYCH ---
HPI - Psych General Chief Complaint: Psychiatric Symptoms Stated Complaint: CRISIS EVAL,-SI/-HI,SAD PER EMS Time Seen by Provider: 06/23/24 22:05 Source: patient Mode of arrival: ambulatory Limitations: no limitations History of Present Illness ED Provider: Dr. Cora Canela HPI Narrative: Patient comes to the emergency room complaining of feeling depressed, anxious. Patient denies SI or HI. Patient states that earlier today he left his senior living to go visit his girlfriend who is . Patient states that without any reason, she called the police on him. Patient very upset. Denies any physical altercation. Patient states that he has wants to talk to somebody from the care team. Related Data Previous Rx's ?Medication ?Instructions ?Recorded methylphenidate HCl 36 mg 36 mg PO DAILY #7 tabs 01/12/22 tablet,extended release 24 hr (Concerta) risperidone 0.5 mg tablet 0.5 mg PO DAILY #14 tabs 07/21/23 trazodone 50 mg tablet 50 mg PO BEDTIME #14 tabs 07/21/23 benzonatate 100 mg capsule 100 mg PO TID PRN cough #14 caps 07/31/23 benzonatate 200 mg capsule 200 mg PO TID PRN cough #30 caps 08/01/23 ibuprofen 600 mg tablet 600 mg PO Q6H PRN fever or pain 08/01/23 #30 tabs cephalexin 500 mg capsule 500 mg PO QID 10 days #40 caps 08/07/23 ibuprofen 400 mg tablet 400 mg PO TID PRN fever or pain 10/22/23 #30 tabs famotidine 20 mg tablet (Heartburn 20 mg PO DAILY PRN abdominal pain 12/17/23 Prevention) #20 tabs Allergies Allergy/AdvReac Type Severity Reaction Status Date / Time No Known Allergies Allergy Unknown UNKNOWN Verified 06/23/24 22:12 [NO KNOWN ALLERGIES] Review of Systems Review of Systems: Constitutional : No Weight loss, No Fever, No Chills, No Night Sweats, No Fatigue, No Malaise ENT/Mouth : No Hearing loss, No Ear Pain, No Nasal Congestion, No Sinus Pain, No Hoarseness, No sore throat, No Rhinorrhea, No Swallowing Difficulty Eyes: No Eye Pain, No Swelling, No Redness, No Foreign Body, No Discharge, No Vision Changes Cardiovascular : No Chest Pain, No SOB, No Dyspnea on Exertion, No Orthopnea, No Edema, No Palpitations Respiratory : No Cough, No Sputum, No Wheezing, No Smoke Exposure, No Dyspnea Gastrointestinal : No Nausea, No Vomiting, No Diarrhea, No Constipation, No abdominal Pain, No Hematochezia, No Melena Genitourinary : no irregular bleeding, No Dysuria, No Urinary Frequency, No Hematuria, No Urinary Incontinence, No Urgency, No Flank Pain, No Urinary Flow Changes, No Hesitancy Musculoskeletal : No joint pain, No Myalgias, No Joint Swelling Skin : No Skin Lesions, No rash Neuro : No Weakness, No Numbness, No Paresthesias, No Loss of Consciousness, No Dizziness, No Headache Psych : Complaining of feeling anxious, depressed, overwhelmed, No SI/HI/AH/VH, No Social Issues, Heme/Lymph: No Bruising, No Bleeding,No Lymphadenopathy Endocrine : No Polyuria, No Polydipsia, No Temperature Intolerance PMFSH Past Medical History Medical History ADHD Adjustment reaction with mixed disturbance of emotions and conduct No pertinent past medical history Social History Social History Household Members: Other Household Members Other:: grandmother Housing: Unknown / Unable to assess Do you presently have visiting nurse or other home services: No Alcohol intake: current Alcohol intake frequency: holidays/special occasions only Patient Tobacco Use Status: Current everyday Tobacco user Smoked in Last 30 Days: Yes e-Cigarette/Vaping Use: Currently Using Second Hand Smoke Exposure: No Substance Use Type: Marijuana Advance Directives: No Advance Directives Information Provided: Yes Do you have a plan to hurt others: No Plan service: No Sexual orientation: Don't Know Physical Exam Vital Signs: Vital Signs: Last Vital Signs Temp 98.3 F 06/24/24 00:26 Pulse 72 06/24/24 00:26 Resp 16 06/24/24 00:26 BP 122/76 06/24/24 00:26 Pulse Ox 96 06/24/24 00:26 O2 Del Method Room Air 06/24/24 00:26 BMI result Body Mass Index 32.2 Const: Other: Appearance: Alert. Oriented X3. No acute distress. Eyes: Pupils equal, round and reactive to light. ENT: Pharynx normal. Neck: Normal inspection. Neck supple. No lymph nodes noted. No crepitus CVS: Normal heart rate and rhythm. Pulses normal. Normal S1 and S2 Respiratory: No respiratory distress. Breath sounds normal. No Wheezing. No rales Abdomen: Soft and nontender. No rigidity. No distention. Skin: Skin warm and dry. Normal skin color. Normal skin turgor. Extremities: No lower extremity edema. No Lacerations. No Rash Neuro: Oriented X 3. No motor deficit. No sensory deficit. Moving all extremities. No slurred speech. CN 2 through 12 grossly intact Psych: calm, cooperative, normal affect Course Course Course Narrative: All of patient's labs pending Care team consult pending Patient is not SI or HI, section 12 not indicated at this time Physician observation started at 00:04 At this time, 704, patient states that he no longer wants to speak to the care team. A physician observation starting at 07:04 Patient requesting to be discharged, denies SI or HI Medical Decision Making Medical Decision Making MDM Narrative: My interpretation of labs: No significant abnormality in patient's hematology and chemistry, normal LFTs, negative ETOH Patient remains under physician observation Differential Diagnosis Differential Diagnoses: The differential diagnosis associated with the presentation includes (Anxiety, depression) Admission/Observation Consideration of admission/observation: Escalation of care including admission/observation considered (Patient is under physician observation waiting to be seen by the care team.) Lab Data 06/23/24 23:28 06/23/24 22:34 Labs: Lab Results 06/23/24 06/23/24 Range/Units 22:34 23:28 WBC 7.7 (4.8-10.8) X10*3/uL RBC 5.14 (4.60-5.80) X10*6/uL Hgb 15.8 (14.0-18.0) g/dl Hct 44.8 (42.0-52.0) % MCV 87.2 (80.0-98.0) fL MCH 30.7 (27.0-33.0) pg MCHC 35.3 (31.0-36.0) g/dl RDW 12.7 (11.0-16.0) % Plt Count 315 (160-400) X10*3/uL MPV 8.7 L (9.4-12.4) fL Immature Gran % (Auto) 0.3 (0.0-0.4) % Neut % (Auto) 66.7 (45-73) % Lymph % (Auto) 22.6 (20-40) % [place] % (Auto) 9.7 (2-11) % Eos % (Auto) 0.3 (0-4) % Baso % (Auto) 0.4 (0-2) % Lymph # (Auto) 1.7 (1.2-4.9) X10*3/uL [place] # (Auto) 0.8 (0.1-1.2) X10*3/uL Eos # (Auto) 0.0 (0.0-0.4) X10*3/uL Baso # (Auto) 0.0 (0.0-0.2) X10*3/uL Abs Immat Gran (auto) 0.02 (0.00-0.03) X10*3/uL Absolute Neuts (auto) 5.2 (2.0-8.3) x10*3/uL Absolute Nucleated RBC 0.000 (0.0-0.012) X10*3/uL Nucleated RBC % (auto) 0.0 (0.0-0.2) /100WBC Sodium 139 (135-145) mmol/L Potassium 3.9 (3.3-5.1) mmol/L Chloride 108 (96-108) mmol/L Carbon Dioxide 19 L (22-29) mmol/L Anion Gap 16 (12-20) BUN 16 (9-16) mg/dL Creatinine 0.78 (0.5-1.4) mg/dL Estim Creat Clear Calc 157.7 Estimated GFR > 60 Random Glucose 99 (60-115) mg/dL Calcium 9.5 (8.4-10.2) mg/dL Total Bilirubin 0.5 (0.0-1.0) mg/dL Direct Bilirubin 0.1 (0.0-0.5) mg/dL AST 34 (5-37) U/L ALT 28 (0-40) U/L Alkaline Phosphatase 82 (39-117) U/L Total Protein 7.8 (6.5-8.0) g/dL Albumin 4.5 (3.5-5.0) g/dL Lipase 10 (8-78) U/L Salicylates < 5.0 L (15-30) mg/dL Acetaminophen < 3 (<30) mcg/mL Ethyl Alcohol < 10 mg/dL Critical Care Time Critical Care Time Critical Care Time: Yes Total Critical Care Time: 35 Attestation: I have personally provided critical care time. Time includes review of lab data, radiology results, discussion with consultants, and monitoring for potential decompensation. Intervention performed as documented. Discharge Plan Discharge Clinical Impression: Adjustment reaction with mixed disturbance of emotions and conduct Patient Disposition: Home, Self-Care Instructions: Anxiety (ED) Additional Instructions: Please follow-up with your primary care physician tomorrow. If you have any worsening or new symptoms, please return to the emergency room or call 911 Prescriptions: No Action methylphenidate HCl [Concerta] 36 mg tablet extended release 24hr 36 mg PO DAILY Qty: 7 0RF Rx Instructions: Partial Fill upon patient request. trazodone 50 mg tablet 50 mg PO BEDTIME Qty: 14 0RF risperidone 0.5 mg tablet 0.5 mg PO DAILY Qty: 14 0RF benzonatate 200 mg capsule 200 mg PO TID PRN (Reason: cough) Qty: 30 0RF ibuprofen 600 mg tablet 600 mg PO Q6H PRN (Reason: fever or pain) Qty: 30 0RF famotidine [Heartburn Prevention] 20 mg tablet 20 mg PO DAILY PRN (Reason: abdominal pain) Qty: 20 0RF benzonatate 100 mg capsule 100 mg PO TID PRN (Reason: cough) Qty: 14 0RF cephalexin 500 mg capsule 500 mg PO QID 10 Days Qty: 40 0RF ibuprofen 400 mg tablet 400 mg PO TID PRN (Reason: fever or pain) Qty: 30 0RF Interventions: [place]-Suicide Risk Severity Scale Last Done: 06/24/24 00:20 Print Language: Citizen Of [place]
[2024-06-24 00:25] LABS: Ethanol < 10 mg/dL
[2024-06-24 00:26] VITALS: BP 122/76; PULSE 72; RESP 16; TEMP 36.8; O2SAT 96
--- NOTE | 2024-06-24 05:26 | PC.NURSE ---
Pt sitting in recliner comfortably. Pt given water and gingerale. Pt awaiting crisis evaluation.
[2024-06-24 07:11] VITALS: BP 121/65; PULSE 56; RESP 18; TEMP 36.6; O2SAT 97
[2024-06-24 07:13] VITALS: BP 121/65; PULSE 56; RESP 18; TEMP 36.6; O2SAT 97
== END 2024-06-24 07:13 | disposition home or self-care (01) ==
PROVIDERS: Emergency Provider Emergency Medicine; PCP Internal Medicine
DX: F43.25 Adjustment disorder with mixed disturbance of emotions and conduct (principal); R45.851 Suicidal ideations; F17.210 Nicotine dependence, cigarettes, uncomplicated; F33.1 Major depressive disorder, recurrent, moderate; F41.9 Anxiety disorder, unspecified; Z79.899 Other long term (current) drug therapy; Z51.81 Encounter for therapeutic drug level monitoring
CPT/HCPCS: 36415; 80048; 80076; 80143; 80179; 80307; 83690; 85025; 99284; 99285

== ENCOUNTER 2024-07-07 18:08 | Emergency (ER) | payer OTHER, SELFPAY ==
[2024-07-07 18:14] VITALS: BP 127/80; PULSE 87; RESP 16; TEMP 37; O2SAT 94; BMI 32.4
--- NOTE | 2024-07-07 18:27 | ED.GENADULT ---
HPI - General Adult General Chief complaint: Neck Pain/Injury Stated complaint: Neck pain Related Data Previous Rx's ?Medication ?Instructions ?Recorded methylphenidate HCl 36 mg 36 mg PO DAILY #7 tabs 01/12/22 tablet,extended release 24 hr (Concerta) risperidone 0.5 mg tablet 0.5 mg PO DAILY #14 tabs 07/21/23 trazodone 50 mg tablet 50 mg PO BEDTIME #14 tabs 07/21/23 benzonatate 100 mg capsule 100 mg PO TID PRN cough #14 caps 07/31/23 benzonatate 200 mg capsule 200 mg PO TID PRN cough #30 caps 08/01/23 ibuprofen 600 mg tablet 600 mg PO Q6H PRN fever or pain 08/01/23 #30 tabs cephalexin 500 mg capsule 500 mg PO QID 10 days #40 caps 08/07/23 ibuprofen 400 mg tablet 400 mg PO TID PRN fever or pain 10/22/23 #30 tabs famotidine 20 mg tablet (Heartburn 20 mg PO DAILY PRN abdominal pain 12/17/23 Prevention) #20 tabs Allergies Allergy/AdvReac Type Severity Reaction Status Date / Time No Known Allergies Allergy Unknown UNKNOWN Verified 07/07/24 18:16 [NO KNOWN ALLERGIES] PMFSH Past Medical History Medical History ADHD Adjustment reaction with mixed disturbance of emotions and conduct No pertinent past medical history Social History Social History Household Members: Other Household Members Other:: grandmother Housing: Unknown / Unable to assess Do you presently have visiting nurse or other home services: No Alcohol intake: current Alcohol intake frequency: holidays/special occasions only Patient Tobacco Use Status: Current everyday Tobacco user e-Cigarette/Vaping Use: Currently Using Second Hand Smoke Exposure: No Substance Use Type: Marijuana Advance Directives: No Advance Directives Information Provided: No service: No Sexual orientation: Don't Know Physical Exam ED Vital Signs: Vital Signs - 24 hr 07/07/24 18:14 Temperature 98.6 F Pulse Rate 87 Respiratory Rate 16 Blood Pressure 127/80 Pulse Oximetry 94 Oxygen Delivery Method Room Air BMI result Body Mass Index 32.4 Course Course Course Narrative: 07/07/24 1827 EDVIN Dee This is a Rapid Medical Examination (RME) performed by Chelsea Beckford PA-C in triage. Full HPI, ROS, assessment and treatment plan per primary provider in the Main ED. Hx: 19 yo M here for eval of sore throat and L sided neck pain x5 days. [facility]. no known sick contacts. PE/vitals: Posterior oropharynx WNL. No edema. Uvula midline. Controlling secretions, speaking complete sentences. Plan: viral/strep swabs Reevaluation(s) Reevaluation #1: neg covid/flu/rsv/strep. Patient left the emergency department before myself or any of the other clinicians could review or explain physical exam findings, test results, need or lack there of for additional testing, treatment options, or a treatment plan. Medical Decision Making Lab Data Labs: Lab Results 07/07/24 Range/Units 18:37 Influenza Type A (PCR) NEGATIVE (Negative) Influenza Type B (PCR) NEGATIVE (Negative) RSV RNA Qual (PCR) NEGATIVE (Negative) SARS-CoV-2 RNA (RT-PCR) NEGATIVE (Negative) S. pyogenes GrpA CHRISTINA Negative (Negative) Discharge Plan Discharge Clinical Impression: Sore throat Patient Disposition: Left W/O Completing Treatment Prescriptions: No Action methylphenidate HCl [Concerta] 36 mg tablet extended release 24hr 36 mg PO DAILY Qty: 7 0RF Rx Instructions: Partial Fill upon patient request. trazodone 50 mg tablet 50 mg PO BEDTIME Qty: 14 0RF risperidone 0.5 mg tablet 0.5 mg PO DAILY Qty: 14 0RF benzonatate 200 mg capsule 200 mg PO TID PRN (Reason: cough) Qty: 30 0RF ibuprofen 600 mg tablet 600 mg PO Q6H PRN (Reason: fever or pain) Qty: 30 0RF famotidine [Heartburn Prevention] 20 mg tablet 20 mg PO DAILY PRN (Reason: abdominal pain) Qty: 20 0RF benzonatate 100 mg capsule 100 mg PO TID PRN (Reason: cough) Qty: 14 0RF cephalexin 500 mg capsule 500 mg PO QID 10 Days Qty: 40 0RF ibuprofen 400 mg tablet 400 mg PO TID PRN (Reason: fever or pain) Qty: 30 0RF Discharge Date/Time: 07/07/24 23:00
[2024-07-07 19:34] LABS: Influenza A PCR NEGATIVE (Negative); Influenza B PCR NEGATIVE (Negative); Resp Syncy Virus RNA Qual PCR NEGATIVE (Negative); SARS COV2 PCR INHOUSE NEGATIVE (Negative)
[2024-07-07 21:19] LABS: IDNOW Serial# 6674DD1D; Strep A Nucleic Acid Negative (Negative)
== END 2024-07-07 23:00 | disposition left against medical advice (07) ==
PROVIDERS: Physician Assistant Medical; Emergency Provider Emergency Medicine Emergency Medical Services
DX: J02.9 Acute pharyngitis, unspecified (principal); M54.2 Cervicalgia; Z03.818 Encounter for observation for suspected exposure to other biological agents ruled out; F17.210 Nicotine dependence, cigarettes, uncomplicated; Z79.899 Other long term (current) drug therapy
CPT/HCPCS: 0241U; 87651; 99281; 99283

== ENCOUNTER 2024-08-19 20:58 | Emergency (ER) | payer OTHER, SELFPAY ==
[2024-08-19 21:05] VITALS: BP 117/56; BP 126/74; PULSE 106; PULSE 98; RESP 20; TEMP 36.7; O2SAT 97; O2SAT 98; BMI 32.0
[2024-08-19 21:10] VITALS: BP 117/56; PULSE 98; RESP 20; TEMP 36.7; O2SAT 98
--- NOTE | 2024-08-19 21:15 | ECG_ITS ---
Test Reason : SYNCOPE Blood Pressure : */* mmHG Vent. Rate : 91 BPM Atrial Rate : 91 BPM P-R Int : 114 ms QRS Dur : 78 ms QT Int : 336 ms P-R-T Axes : 1 37 33 degrees QTcB Int : 413 ms Normal sinus rhythm Nonspecific ST abnormality Abnormal ECG When compared with ECG of 19-Jul-2023 15:10, Vent. rate has increased by 35 bpm T wave inversion no longer evident in Anterior leads T wave amplitude has decreased in Lateral leads Referred By: Will Guerrero Electronically Signed By: FREDA VELÁSQUEZ MD
--- NOTE | 2024-08-19 21:16 | ED_ITS ---
HPI - Syncope General Chief Complaint: Syncope Stated Complaint: dizzy syncopal episode Time Seen by Provider: 08/19/24 21:10 Source: patient and EMS Mode of arrival: EMS Limitations: no limitations History of Present Illness ED Provider: DR. Guerrero HPI narrative: A 19-year-old male brought in by ambulance for evaluation of having a few sec of syncopal episode witnessed by friends. Patient was sitting in the chair felt dizzy and lightheadedness then he had a few sec pass out, patient remained sitting on the chair did not fall on the ground no head injury. Complaining of sore throat, generalized body ache, coughing and sneezing. No chest pain, no shortness of breath. + strong smell of marijuana in the room was noted, patient admitted to smoking marijuana before coming here today the patient smokes daily. Related Data Previous Rx's ?Medication ?Instructions ?Recorded methylphenidate HCl 36 mg 36 mg PO DAILY #7 tabs 01/12 tablet,extended release 24 hr (Concerta) risperidone 0.5 mg tablet 0.5 mg PO DAILY #14 tabs trazodone 50 mg tablet 50 mg PO BEDTIME #14 tabs benzonatate 100 mg capsule 100 mg PO TID PRN cough #14 caps 07/31/23 benzonatate 200 mg capsule 200 mg PO TID PRN cough #30 caps 08/01/23 ibuprofen 600 mg tablet 600 mg PO Q6H PRN fever or p ain 08/01/23 #30 tabs cephalexin 500 mg capsule 500 mg PO QID 10 days #40 ca ps 08/07/23 ibuprofen 400 mg tablet 400 mg PO TID PRN fever or p ain 10/22/23 #30 tabs famotidine 20 mg tablet (Heartburn 20 mg PO DAILY PRN abdominal pain 12/17/23 Prevention) #20 tabs Allergies Allergy/AdvReac Type Severity Reaction Status Date / Time No Known Allergies (NO KNOWN Allergy Unknown UNKNOWN Verified 08/19/24 21:08 ALLERGIES) Review of Systems 2 Review of Systems: All other systems are reviewed and are negative Constitutional: Reports as per HPI and Reports no additional constitutional complaints Eyes: Reports as per HPI and Reports no additional eye complaints Reports system reviewed and no additional complaints, except as documented Cardiovascular: Reports as per HPI and Reports no additional cardiovascular complaints Respiratory: Reports as per HPI and Reports no additional respiratory complaints Gastrointestinal: Reports as per HPI and Reports no additional gastrointestinal complaints Genitourinary: Reports no additional female genitourinary complaints Musculoskeletal: Reports no additional musculoskeletal complaints Skin/Breast: Reports system reviewed and no additional complaints, except as docu Psychiatric: Reports no additional psychiatric complaints Endocrine: Reports no additional endocrine complaints Hematologic/Lymphatic: Reports no additional hematologic/lymphatic complaints Allergic/Immunologic: Reports no additional allergic/immunologic complaints Reports system reviewed and no additional complaints, except as documented and Reports Abnormal speech present [facility] Past Medical History Medical History ADHD Adjustment reaction with mixed disturbance of emotions and conduct No pertinent past medical history Social History Social History Household Members: Other Household Members Other:: grandmother Housing: Unknown / Unable to assess Do you presently have visiting nurse or other home services: No Alcohol intake: current Alcohol intake frequency: holidays/special occasions only Patient Tobacco Use Status: Current everyday Tobacco user Smoked in Last 30 Days: No e-Cigarette/Vaping Use: Currently Using Second Hand Smoke Exposure: No Use of substances other than those prescribed or required for medical reasons: Yes Substance Use Type: Marijuana Advance Directives: No Advance Directives Information Provided: No service: No Sexual orientation: Don't Know Physical Exam 2 Vital Signs: Vital Signs: Last Vital Signs Temp 99.0 F 08/19/24 22:43 Pulse 90 08/20/24 00:10 Resp 16 08/20/24 00:10 BP 110/63 08/20/24 00:10 Pulse Ox 97 08/20/24 00:10 O2 Del Method Room Air 08/20/24 00:10 BMI result Body Mass Index 32.0 Vital signs have been reviewed and appear to be correct. Blood pressure elevated. Heart rate normal. Respiratory rate normal. Temperature normal. Oxygen saturation normal. Appearance: Alert. Oriented X3. No acute distress. Head: Normal external exam. Normocephalic. Atraumatic. No Jensen signs noted. No raccoon eyes noted Eyes: PERRLA. EOMI. Conjunctiva and sclera normal. Eyelids normal. ENT: TM's Normal. Pharynx normal. Uvula midline. Moist mucous membranes. No trismus noted. No drooling noted. No muffled voice noted. Neck: Normal inspection. Neck supple. FROM. No adenopathy. Thyroid Normal. No meningeal signs. No neck mass noted. CVS: Normal heart rate and rhythm. Heart sound normal. No murmurs noted. Pulses normal throughout. Respiratory: No respiratory distress. Painless inspiration. Breath sounds normal. No wheezes/rales/rhonchi noted. Chest nontender. No accessory muscle usage noted or decreased air movement noted. Abdomen: Soft and nontender. Bowel sounds normal in all 4 quadrants. No distention noted. No organomegaly noted. No visible injury noted. Back: No CVA tenderness. Full range of motion noted. Skin: Skin warm and dry. Normal skin color. Normal skin turgor. No rashes/lesions/lacerations noted. Extremities: No lower extremity edema. Extremities exhibit normal range of motion. Extremities nontender. Neuro: Mental status: Normal attention, orientation, memory, and affect. Cranial nerves: Pupils are equal, round and reactive to light, EOMI, visual hassan are fall, face is symmetric, facial sensations are normal. Motor examination normal muscle tone, strength to 4 extremities. DTR are +2, planter's are flexor. Sensory exam; normal coordination, no ataxia, gait stable. Cerebellar exam: [id number] and [id number]-up-[id number] is normal. Extrapyramidal system: No tremors, no rigidity with normal facial expressions. Pronator drift not present. Course Reevaluation(s) Reevaluation #1: Orthostatic is positive by symptoms, patient adamantly declining IV access and IV hydration but willing to drink for oral hydration. Patient is tolerating p.o. intake in the emergency department with no problem and was instructed to drink plenty of fluids. Otherwise unremarkable labs workup. Time: 23:00 Reevaluation #2: Patient change his mind willing to insert IV and get IV hydration. Will start IV hydration. Time: 23:25 Reevaluation #3: Patient now feels better after received 1 L of fluid, will discharge back to the intermediate. Improvement of tachycardia with fluids, patient currently is asymptomatic.. Time: 01:13 Medications Administered Discontinued Medications Generic Name Dose Route Start Last Admin Trade Name Freq PRN Reason Stop Dose Admin Lactated Ringer's 1,000 mls @ 999 mls/hr 08/19/24 23:30 08/20/24 00:11 Lr IV 08/20/24 00:30 999 mls/hr .Q1H1M [facility] Administration Medical Decision Making Differential Diagnosis Differential Diagnoses: The differential diagnosis associated with the presentation includes (Dehydration, orthostatic hypotension, electrolyte derangement, severe anemia, marijuana use disorder.) Admission/Observation Consideration of admission/observation: Escalation of care including admission/observation considered Lab Data MDM Lab Attestation statement: I reviewed the patient's lab results. 08/19/24 21:50 08/19/24 21:50 Labs: Lab Results 08/19/24 08/19/24 Range/Units 21:49 21:50 WBC 11.4 H (4.8-10.8) X10*3/uL RBC 4.99 (4.60-5.80) X10*6/uL Hgb 15.2 (14.0-18.0) g/dl Hct 42.3 (42.0-52.0) % MCV 84.8 (80.0-98.0) fL MCH 30.5 (27.0-33.0) pg MCHC 35.9 (31.0-36.0) g/dl RDW 12.3 (11.0-16.0) % Plt Count 316 (160-400) X10*3/uL MPV 8.8 L (9.4-12.4) fL Immature Gran % (Auto) 0.3 (0.0-0.4) % Neut % (Auto) 71.1 (45-73) % Lymph % (Auto) 14.4 L (20-40) % [place] % (Auto) 13.0 H (2-11) % Eos % (Auto) 0.9 (0-4) % Baso % (Auto) 0.3 (0-2) % Lymph # (Auto) 1.7 (1.2-4.9) X10*3/uL [place] # (Auto) 1.5 H (0.1-1.2) X10*3/uL Eos # (Auto) 0.1 (0.0-0.4) X10*3/uL Baso # (Auto) 0.0 (0.0-0.2) X10*3/uL Abs Immat Gran (auto) 0.03 (0.00-0.03) X10*3/uL Absolute Neuts (auto) 8.1 (2.0-8.3) x10*3/uL Absolute Nucleated RBC 0.000 (0.0-0.012) X10*3/uL Nucleated RBC % (auto) 0.0 (0.0-0.2) /100WBC Sodium 139 (135-145) mmol/L Potassium 3.6 (3.3-5.1) mmol/L Chloride 106 (96-108) mmol/L Carbon Dioxide 23 (22-29) mmol/L Anion Gap 14 (12-20) BUN 13 (9-16) mg/dL Creatinine 0.87 (0.5-1.4) mg/dL Estim Creat Clear Calc 141.1 Estimated GFR > 60 Random Glucose 96 (60-115) mg/dL Calcium 9.5 (8.4-10.2) mg/dL Total Bilirubin 0.6 (0.0-1.0) mg/dL Direct Bilirubin 0.3 (0.0-0.5) mg/dL AST 25 (5-37) U/L ALT 25 (0-40) U/L Alkaline Phosphatase 81 (39-117) U/L Troponin I High Sens < 2.7 (<3.5-35.0) ng/L B-Natriuretic Peptide < 10 (<100) pg/mL Total Protein 7.7 (6.5-8.0) g/dL Albumin 4.7 (3.5-5.0) g/dL Lipase 9 (8-78) U/L Influenza Type A (PCR) NEGATIVE (Negative) Influenza Type B (PCR) NEGATIVE (Negative) RSV RNA Qual (PCR) NEGATIVE (Negative) SARS-CoV-2 RNA (RT-PCR) NEGATIVE (Negative) S. pyogenes GrpA CHRISTINA Negative (Negative) Independent Interpretation I performed an independent interpretation of an: EKG (Normal sinus rhythm at 91 beats per minutes, a normal axis deviation, normal intervals, no change from prior EKG.) Discharge Plan Discharge Clinical Impression: Cannabis use disorder, Dehydration Patient Disposition: Home, Self-Care Instructions: Dehydration (ED), Cannabis Use Disorder (ED) Additional Instructions: Drink plenty of fluids. Smokeless marijuana. Follow-up with your primary doctor. Prescriptions: No Action methylphenidate HCl [Concerta] 36 mg tablet extended release 24hr 36 mg PO DAILY Qty: 7 0RF Rx Instructions: Partial Fill upon patient request. trazodone 50 mg tablet 50 mg PO BEDTIME Qty: 14 0RF risperidone 0.5 mg tablet 0.5 mg PO DAILY Qty: 14 0RF benzonatate 200 mg capsule 200 mg PO TID PRN (Reason: cough) Qty: 30 0RF ibuprofen 600 mg tablet 600 mg PO Q6H PRN (Reason: fever or pain) Qty: 30 0RF famotidine [Heartburn Prevention] 20 mg tablet 20 mg PO DAILY PRN (Reason: abdominal pain) Qty: 20 0RF benzonatate 100 mg capsule 100 mg PO TID PRN (Reason: cough) Qty: 14 0RF cephalexin 500 mg capsule 500 mg PO QID 10 Days Qty: 40 0RF ibuprofen 400 mg tablet 400 mg PO TID PRN (Reason: fever or pain) Qty: 30 0RF Print Language: German
[2024-08-19 22:00] LABS: MANUAL DIFF FLAG NO
[2024-08-19 22:02] LABS: Hematocrit 42.3 % (42.0-52.0); Hemoglobin 15.2 g/dl (14.0-18.0); Imm Gran Abs Auto 0.03 X10*3/uL (0.00-0.03); Imm Gran Pct Auto 0.3 % (0.0-0.4); Lymphocytes Absolute Auto 1.7 X10*3/uL (1.2-4.9); Mean Corpuscular HGB Conc 35.9 g/dl (31.0-36.0); Mean Corpuscular Hemoglobin 30.5 pg (27.0-33.0); Mean Corpuscular Volume 84.8 fL (80.0-98.0); NRBC Abs Auto 0.000 X10*3/uL (0.0-0.012); NRBC Pct Auto 0.0 /100WBC (0.0-0.2); Platelet Count 316 X10*3/uL (160-400); Red Blood Count 4.99 X10*6/uL (4.60-5.80); White Blood Count 11.4 X10*3/uL (4.8-10.8)
[2024-08-19 22:18] LABS: Alanine Aminotransferase 25 U/L (0-40); Albumin Level 4.7 g/dL (3.5-5.0); Alkaline Phosphatase 81 U/L (39-117); Anion Gap 14 (12-20); Aspartate Amino Transferase 25 U/L (5-37); Blood Urea Nitrogen 13 mg/dL (9-16); Calcium 9.5 mg/dL (8.4-10.2); Carbon Dioxide 23 mmol/L (22-29); Chloride 106 mmol/L (96-108); Creatinine Clr Calc Pharmacy 141.1; Estimated Glomerular Filt Rate > 60; Lipase 9 U/L (8-78); Potassium 3.6 mmol/L (3.3-5.1); Sodium 139 mmol/L (135-145); Total Protein 7.7 g/dL (6.5-8.0)
[2024-08-19 22:21] LABS: IDNOW Serial# 58CA691E
[2024-08-19 22:22] LABS: Strep A Nucleic Acid Negative (Negative)
[2024-08-19 22:23] LABS: B Type Natriuretic Peptide < 10 pg/mL (<100)
[2024-08-19 22:26] LABS: Troponin-I High Sensitivity < 2.7 ng/L (<3.5-35.0)
[2024-08-19 22:40] LABS: Resp Syncy Virus RNA Qual PCR NEGATIVE (Negative); SARS COV2 PCR INHOUSE NEGATIVE (Negative)
[2024-08-19 22:43] VITALS: BP 85/44; PULSE 84; RESP 20; TEMP 37.2; O2SAT 98
[2024-08-19 22:46] VITALS: BP 113/61; PULSE 101
[2024-08-19 22:48] VITALS: BP 120/57; PULSE 124
[2024-08-20 00:10] VITALS: BP 110/63; PULSE 90; RESP 16; O2SAT 97
[2024-08-20] MEDS: Lactated Ringers 1,000 ML 999 ML IV (00:11)
[2024-08-20 01:31] VITALS: BP 110/63; PULSE 90; RESP 16; TEMP 36.3; O2SAT 97
== END 2024-08-20 01:58 | disposition home or self-care (01) ==
PROVIDERS: Emergency Provider Emergency Medicine
DX: F12.988 Cannabis use, unspecified with other cannabis-induced disorder (principal); E86.0 Dehydration; R00.0 Tachycardia, unspecified; J02.9 Acute pharyngitis, unspecified; Z03.818 Encounter for observation for suspected exposure to other biological agents ruled out; Z79.899 Other long term (current) drug therapy
CPT/HCPCS: 36415; 80048; 80076; 83690; 83880; 84484; 85025; 87637; 87651; 93005; 96360; 99284; J7120

== ENCOUNTER → 2024-08-19 21:15 | Outpatient (BNV) | payer OTHER, SELFPAY | PROVIDERS: Emergency Provider Emergency Medicine; Visit Provider Internal Medicine Cardiovascular Disease | DX: R94.31 Abnormal electrocardiogram [ECG] [EKG] (principal); R55 Syncope and collapse | CPT/HCPCS: 93010 ==

== ENCOUNTER 2024-08-23 17:34 | Emergency (ER) | payer OTHER, SELFPAY ==
[2024-08-23 17:41] VITALS: BP 129/66; PULSE 90; RESP 18; TEMP 37.1; O2SAT 97
--- NOTE | 2024-08-23 17:44 | ED_ITS ---
HPI - General Adult General Chief complaint: Upper Respiratory Symptoms Stated complaint: swollen lymph notes, trouble breathing Time Seen by Provider: 08/23/24 17:56 Source: patient and other (retirement staff) Mode of arrival: ambulatory Limitations: no limitations History of Present Illness ED Provider: Tamara Grewal PA-C HPI narrative: Patient is a 19 year old assigned male at with a history of ADHD and adjustment reaction with mixed disturbance of emotions and conduct presenting to the emergency department today with a sore throat. Patient states that since July 07 he has had a sore throat with a globus sensation. Patient states that he has been evaluated for this before and it isn't getting better. Patient denies any dizziness, lightheadedness, abdominal pain, nausea, vomiting, fever, chills, blurry vision, double vision, loss of vision, chest pain, difficulty breathing, shortness of breath, back pain, night sweats, pain with urination, increased urinary frequency, increased urinary urgency, blood in his urine or stool, syncope or a near syncopal episode, recent trauma or falls, bowel incontinence, bladder incontinence, or any other complaints at this time. Relieving factors: none Exacerbating factors: none Related Data Previous Rx's ?Medication ?Instructions ?Recorded methylphenidate HCl 36 mg 36 mg PO DAILY #7 tabs 01/12 tablet,extended release 24 hr (Concerta) risperidone 0.5 mg tablet 0.5 mg PO DAILY #14 tabs trazodone 50 mg tablet 50 mg PO BEDTIME #14 tabs benzonatate 100 mg capsule 100 mg PO TID PRN cough #14 caps 07/31/23 benzonatate 200 mg capsule 200 mg PO TID PRN cough #30 caps 08/01/23 ibuprofen 600 mg tablet 600 mg PO Q6H PRN fever or p ain 08/01/23 #30 tabs cephalexin 500 mg capsule 500 mg PO QID 10 days #40 ca ps 08/07/23 ibuprofen 400 mg tablet 400 mg PO TID PRN fever or p ain 10/22/23 #30 tabs famotidine 20 mg tablet (Heartburn 20 mg PO DAILY PRN abdominal pain 12/17/23 Prevention) #20 tabs penicillin V potassium 500 mg 500 mg PO BID 10 days #2 0 tabs 08/23/24 tablet prednisone 20 mg tablet 20 mg PO DAILY 7 days #7 tab s 08/23/24 Allergies Allergy/AdvReac Type Severity Reaction Status Date / Time No Known Allergies (NO KNOWN Allergy Unknown UNKNOWN Verified 08/23/24 17:42 ALLERGIES) Review of Systems Constitutional: Constitutional: Reports no additional constitutional complaints, Denies chills, Denies fever(s) and Denies night sweats Eyes: Eyes: Reports no additional eye complaints, Denies blurry vision, Denies change in vision, Denies diplopia, Denies eye discharge, Denies loss of vision and Denies eye pain ENT: Denies dizziness and Reports sore throat Comments: globus sensation Cardiovascular: Cardiovascular: Reports no additional cardiovascular complaints, Denies chest pain, Denies lightheadedness, Denies Loss of Consciousness and Denies dyspnea Respiratory: Respiratory: Reports no additional respiratory complaints and Denies dyspnea Gastrointestinal: Gastrointestinal: Reports no additional gastrointestinal complaints, Denies abdominal pain, Denies melena, Denies hematochezia, Denies change in bowel habits and Denies change in stool character Genitourinary: Genitourinary: Reports no additional male genitourinary complaints, Denies hematuria, Denies oliguria, Denies difficulty urinating, Denies dysuria, Denies urinary frequency, Denies urinary hesitancy, Denies urinary incontinence and Denies urinary urgency Musculoskeletal: Musculoskeletal: Reports no additional musculoskeletal complaints, Denies numbness and Denies tingling Neurologic: Denies dizziness, Denies loss of vision, Denies numbness and Denies tingling Psychiatric: Psychiatric: Reports no additional psychiatric complaints Endocrine: Endocrine: Reports no additional endocrine complaints Hematologic/Lymphatic: Hematologic/Lymphatic: Reports no additional hematologic/lymphatic complaints Allergic/Immunologic: Allergic/Immunologic: Reports no additional allergic/immunologic complaints [facility] Past Medical History Attestation statement: The following information was validated with the patient. Source: old records reviewed and nursing notes reviewed Medical History ADHD Adjustment reaction with mixed disturbance of emotions and conduct No pertinent past medical history Social History Social History Household Members: Other Household Members Other:: grandmother Housing: Unknown / Unable to assess Do you presently have visiting nurse or other home services: No Unable to assess alcohol history related to: Unknown Alcohol intake: current Alcohol intake frequency: holidays/special occasions only Patient Tobacco Use Status: Current everyday Tobacco user Smoked in Last 30 Days: Yes e-Cigarette/Vaping Use: Currently Using Second Hand Smoke Exposure: No Use of substances other than those prescribed or required for medical reasons: Yes Substance Use Type: Marijuana Substance Use Frequency: Chronic Longstanding Advance Directives: No Advance Directives Information Provided: No service: No Sexual orientation: Don't Know Physical Exam ED Vital Signs: Vital Signs - 24 hr 08/23/24 17:41 Temperature 98.7 F Pulse Rate 90 Respiratory Rate 18 Blood Pressure 129/66 Pulse Oximetry 97 Oxygen Delivery Method Room Air BMI result Body Mass Index 30.0 Const General: cooperative, no acute distress, alert and awake Nutritional Appearance: well nourished Orientation/consciousness: patient oriented x3 HENMT Head: Yes normal to inspection and Yes atraumatic Ears: hearing grossly normal bilaterally and external ears normal General nose exam: Normal external nose present, no nasal discharge noted and no epistaxis Face and sinus: Yes normal facial exam, No abrasion and No laceration Mouth: Normal oral and palatal mucosa present, no drooling and no muffled voice Eyes General: appearance normal, both eyes and all related structures Periorbital: periorbital findings normal Eyelids: Yes eyelids normal Conjunctivae: conjunctivae normal Pupils: Equal, round and reactive pupils present EOM: EOMs intact bilaterally Neck Neck: Yes normal visual inspection, Yes full ROM and Yes no lymphadenopathy Resp Effort & Inspection: normal respiratory effort and able to speak in complete sentences Neuro General: patient oriented x3, moves all extremities and CN's II-XI intact bilaterally Cranial nerves: Yes Equal, round and reactive pupils present Cognition (Neuro): normal cognition Extrem General: Yes normal to inspection, Yes full ROM and Yes capillary refill normal Psych Appearance: grossly normal Mental Status: mental status grossly normal Affect: normal affect Attitude: cooperative Thought process: Normal thought process present Thought content: Normal thought content present Insight: Good insight present (Psych) Course Course Course Narrative: This is an RME: Additional HPI, ROS, PE not included below will be deferred to primary provider. RME assessment and note performed by: Sarahi Shipman PA-C This is a [age]-male who presents to the ER with concerns of sore throat. [facility] [place] [facility] [place] Reporting cough, sore throat. Not on antibiotics or steroids. Plan: Viral swabs, strep swab Medications Administered Discontinued Medications Generic Name Dose Route Start Last Admin Trade Name Abhinav PRN Reason Stop Dose Admin Dexamethasone Sodium Phosphate 10 mg 08/23/24 18:26 08/23/24 18:34 Dexamethasone Sod Phosphate 10 Mg/Ml Vial PO 08/23/24 18:27 10 mg ONCE ONE Administration Medical Decision Making Medical Decision Making [facility] Narrative: Patient is a 19 year old assigned male at with a history of ADHD and adjustment reaction with mixed disturbance of emotions and conduct presenting to the emergency department today with a sore throat. Patient's physical exam was unremarkable. I explained my physical exam findings as well as all test results to the patient and the patient's staff. I answered all questions asked by the patient and the patient's staff. I stressed the importance of the patient taking his medication as directed (either prescribed or as the over the counter packaging recommends). I stressed the importance of the patient following up with his primary care provider and with a GI specialist for globus sensation. I stressed the importance of the patient returning to the emergency department immediately if his symptoms were to worsen or if he were to develop any dizziness, shortness of breath, difficulty breathing, chest pain, blurry vision, loss of vision, nausea, vomiting, abdominal pain, fever, chills, back pain, or any other complaints. Patient and the patient's staff verbalized agreement and understanding with this treatment plan and discharge. Differential Diagnosis Differential Diagnoses: The differential diagnosis associated with the presentation includes Sore throat COVID-19 Influenza RSV Strep pharyngitis Globus sensation Admission/Observation Consideration of admission/observation: Escalation of care including admission/observation considered Patient would have been admitted to the hospital had his work up had any findings where hospital admission was appropriate and his clinical presentation warranted hospital admission. Lab Data [facility] Lab Attestation statement: I reviewed the patient's lab results. My interpretation of these results are in the [facility] Rationale portion of this note. Labs: Lab Results 08/23/24 Range/Units 17:58 S. pyogenes GrpA CHRISTINA Negative (Negative) Independent Historian Clinical information obtained from an independent historian. History obtained from or confirmed by: Other (patient's staff provided additional history and confirmed the history provided by the patient. ) Prescription Management I considered prescription management with: Antibiotic (patient prescribed an antibiotic given the length of time he has had symptoms) Discharge Plan Discharge Clinical Impression: Pharyngitis, Globus sensation Patient Disposition: Home, Self-Care Instructions: Pharyngitis (ED) Additional Instructions: Follow up with your primary care provider and a GI specialist for your globus sensation. Return to the emergency department immediately if your symptoms worsen or if you develop any numbness, tingling, dizziness, shortness of breath, difficulty breathing, chest pain, blurry vision, loss of vision, nausea, vomiting, abdominal pain, fever, chills, back pain, or any other complaints. Please see the information below about our Patient Portal. If you are not yet enrolled in the [facility] Patient Portal, you will receive an enrollment email invitation following your visit to any [facility] setting. You may also self-enroll in the Patient Portal by visiting our website: [email or web address] The following information is required to access the Patient Portal: - Your [facility] Medical Record Number - Your personal home email address (must match what is in your electronic medical record, Registration staff can assist with this) - Name - Date of Capabilities of the Patient Portal: - Message some providers - View upcoming appointments - Access your health summary, medical history, and visit history - View current conditions and allergies - View procedure and lab results - View your medications, including guidelines, side effects, and precautions - Complete pre-appointment questionnaires requested by your provider - Ready summary reports of your office visits and procedures To access the Patient Portal Mobile [employer], follow these directions: - Search [employer] in the [employer] Store or [employer] Store - Download the [employer] - Search for [facility] - Enter your login/password Prescriptions: New prednisone 20 mg tablet 20 mg PO DAILY 7 Days Qty: 7 0RF penicillin V potassium 500 mg tablet 500 mg PO BID 10 Days Qty: 20 0RF No Action methylphenidate HCl [Concerta] 36 mg tablet extended release 24hr 36 mg PO DAILY Qty: 7 0RF Rx Instructions: Partial Fill upon patient request. trazodone 50 mg tablet 50 mg PO BEDTIME Qty: 14 0RF risperidone 0.5 mg tablet 0.5 mg PO DAILY Qty: 14 0RF benzonatate 200 mg capsule 200 mg PO TID PRN (Reason: cough) Qty: 30 0RF ibuprofen 600 mg tablet 600 mg PO Q6H PRN (Reason: fever or pain) Qty: 30 0RF famotidine [Heartburn Prevention] 20 mg tablet 20 mg PO DAILY PRN (Reason: abdominal pain) Qty: 20 0RF benzonatate 100 mg capsule 100 mg PO TID PRN (Reason: cough) Qty: 14 0RF cephalexin 500 mg capsule 500 mg PO QID 10 Days Qty: 40 0RF ibuprofen 400 mg tablet 400 mg PO TID PRN (Reason: fever or pain) Qty: 30 0RF Referrals: [facility] G[facility]enterology Services [Provider Group, Gastroenterology] Referral Note: Call to establish and follow up with a GI Specialist for your persistent globus sensation. Milind Paige MD [Primary Care Provider, Internal Medicine] Interventions: ED Discharge Assessment Last Done: 08/23/24 18:37 Print Language: Bahamian
[2024-08-23 18:15] LABS: IDNOW Serial# 55D5AD1C; Strep A Nucleic Acid Negative (Negative)
[2024-08-23 18:37] VITALS: BP 126/65; PULSE 88; RESP 18; TEMP 37; O2SAT 99
[2024-08-23 18:45] LABS: Resp Syncy Virus RNA Qual PCR NEGATIVE (Negative); SARS COV2 PCR INHOUSE NEGATIVE (Negative)
== END 2024-08-23 19:12 | disposition home or self-care (01) ==
PROVIDERS: Physician Assistant Medical; Emergency Provider Internal Medicine; PCP Internal Medicine
DX: J02.9 Acute pharyngitis, unspecified (principal); F45.8 Other somatoform disorders; F17.200 Nicotine dependence, unspecified, uncomplicated; F12.90 Cannabis use, unspecified, uncomplicated; Z03.818 Encounter for observation for suspected exposure to other biological agents ruled out; Z79.899 Other long term (current) drug therapy
CPT/HCPCS: 87637; 87651; 99283; J1100

== ENCOUNTER 2024-09-04 01:15 | Emergency (ER) | payer OTHER, SELFPAY ==
[2024-09-04 01:23] VITALS: BP 118/72; PULSE 95; O2SAT 98
[2024-09-04 01:32] VITALS: BP 129/69; PULSE 100; RESP 18; TEMP 37.3; O2SAT 96; BMI 31.3
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
--- NOTE | 2024-09-04 02:46 | MHC.EDTECH ---
02:40- Patient refused lab work due to fear of needle, This tech advised him of the lab work importance. RN aware. patient stated he will consider lab work.
[2024-09-04 03:51] LABS: MANUAL DIFF FLAG NO
[2024-09-04 03:52] LABS: Hematocrit 43.4 % (42.0-52.0); Hemoglobin 15.5 g/dl (14.0-18.0); Imm Gran Abs Auto 0.01 X10*3/uL (0.00-0.03); Imm Gran Pct Auto 0.1 % (0.0-0.4); Lymphocytes Absolute Auto 2.0 X10*3/uL (1.2-4.9); Mean Corpuscular HGB Conc 35.7 g/dl (31.0-36.0); Mean Corpuscular Hemoglobin 30.9 pg (27.0-33.0); Mean Corpuscular Volume 86.5 fL (80.0-98.0); NRBC Abs Auto 0.000 X10*3/uL (0.0-0.012); NRBC Pct Auto 0.0 /100WBC (0.0-0.2); Platelet Count 376 X10*3/uL (160-400); Red Blood Count 5.02 X10*6/uL (4.60-5.80); White Blood Count 7.1 X10*3/uL (4.8-10.8)
[2024-09-04 03:53] VITALS: BP 121/70; PULSE 88; TEMP 37; O2SAT 96
[2024-09-04 04:22] LABS: Alanine Aminotransferase 61 U/L (0-40); Albumin Level 4.4 g/dL (3.5-5.0); Alkaline Phosphatase 77 U/L (39-117); Anion Gap 12 (12-20); Aspartate Amino Transferase 33 U/L (5-37); Blood Urea Nitrogen 23 mg/dL (9-16); Calcium 9.2 mg/dL (8.4-10.2); Carbon Dioxide 25 mmol/L (22-29); Chloride 106 mmol/L (96-108); Creatinine Clr Calc Pharmacy 130.8; Estimated Glomerular Filt Rate > 60; Potassium 4.1 mmol/L (3.3-5.1); Sodium 139 mmol/L (135-145); Total Protein 7.2 g/dL (6.5-8.0)
[2024-09-04 04:35] VITALS: BP 121/70; PULSE 88; RESP 12; TEMP 37; O2SAT 96
== END 2024-09-04 04:37 | disposition home or self-care (01) ==
PROVIDERS: Emergency Medicine; Emergency Provider Emergency Medicine
DX: F43.21 Adjustment disorder with depressed mood (principal); F33.1 Major depressive disorder, recurrent, moderate; F41.1 Generalized anxiety disorder; F43.0 Acute stress reaction; Z51.81 Encounter for therapeutic drug level monitoring
CPT/HCPCS: 36415; 80048; 80076; 80307; 85025; 99283; 99291

== ENCOUNTER 2024-09-24 14:46 | Emergency (ER) | payer OTHER, SELFPAY ==
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
[2024-09-24 14:55] VITALS: BP 123/66; PULSE 81; RESP 16; TEMP 36.2; O2SAT 100; BMI 27.4
--- NOTE | 2024-09-24 14:55 | ED.GENADULT ---
HPI - General Adult General Chief complaint: Medical Clearance Stated complaint: Medical clearance Time Seen by Provider: 09/24/24 15:01 Source: patient and other (staff from program) Mode of arrival: ambulatory Limitations: no limitations History of Present Illness ED Provider: Truong Smith PA-C HPI narrative: 19 yo male with history of ADHD, adjustment reaction w/ disturbance of emotions and conduct who presents to the ER w/ retirement staff for medical clearance. patient reports he has been out drinking alcohol and smoking marijuana. he states he has not been taking any of his medications which includes risperidal 1mg nightly. he is also on PRN hydroxyzine. staff reports he is attention seeking by leaving the home. he states he was out making stupid choices. no si or hi. no durg use other than marijunana. staff unable to contact his psychiatrist for recommendations on medication restarting after being off of it for 4 days. MD complaint: medication recommendations Onset (ago): day(s) (4) Associated symptoms: denies other symptoms Treatments prior to arrival: none Related Data Previous Rx's ?Medication ?Instructions ?Recorded methylphenidate HCl 36 mg 36 mg PO DAILY #7 tabs 01/12/22 tablet,extended release 24 hr (Concerta) risperidone 0.5 mg tablet 0.5 mg PO DAILY #14 tabs 07/21/23 trazodone 50 mg tablet 50 mg PO BEDTIME #14 tabs 07/21/23 benzonatate 100 mg capsule 100 mg PO TID PRN cough #14 caps 07/31/23 benzonatate 200 mg capsule 200 mg PO TID PRN cough #30 caps 08/01/23 ibuprofen 600 mg tablet 600 mg PO Q6H PRN fever or pain 08/01/23 #30 tabs cephalexin 500 mg capsule 500 mg PO QID 10 days #40 caps 08/07/23 ibuprofen 400 mg tablet 400 mg PO TID PRN fever or pain 10/22/23 #30 tabs famotidine 20 mg tablet (Heartburn 20 mg PO DAILY PRN abdominal pain 12/17/23 Prevention) #20 tabs penicillin V potassium 500 mg 500 mg PO BID 10 days #20 tabs 08/23/24 tablet prednisone 20 mg tablet 20 mg PO DAILY 7 days #7 tabs 08/23/24 Allergies Allergy/AdvReac Type Severity Reaction Status Date / Time No Known Allergies (NO KNOWN Allergy Unknown UNKNOWN Verified 09/24/24 14:55 ALLERGIES) Review of Systems Review of Systems: Yes all other systems are reviewed and are negative [facility] Past Medical History Medical History ADHD Adjustment reaction with mixed disturbance of emotions and conduct No pertinent past medical history Social History Social History Household Members: Other Household Members Other:: grandmother Housing: Unknown / Unable to assess Do you presently have visiting nurse or other home services: No Unable to assess alcohol history related to: Unknown Alcohol intake: current Alcohol intake frequency: holidays/special occasions only Patient Tobacco Use Status: Current everyday Tobacco user e-Cigarette/Vaping Use: Currently Using Second Hand Smoke Exposure: No Substance Use Type: Marijuana Advance Directives: No Advance Directives Information Provided: No service: No Sexual orientation: Don't Know Physical Exam ED Exam Exam: Appearance: Alert. Oriented X3. No acute distress. Head: normocephalic, atraumatic. Eyes: Pupils equal, round and reactive to light. ENT: Pharynx normal. moist mucus membranes Neck: Normal inspection. Neck supple. CVS: Normal heart rate and rhythm. Pulses normal. Respiratory: No respiratory distress. Breath sounds normal. Abdomen: Soft and nontender. +BS x4 Skin: Skin warm and dry. Normal skin color. Normal skin turgor. No rashes. Extremities: No lower extremity edema. No joint swelling. Neuro/psych: Oriented X 3. nonfocal, steady gait. CN II-XII intact. Normal speech and cognition. Vital Signs: Vital Signs - 24 hr 09/24/24 14:55 Temperature 97.1 F Pulse Rate 81 Respiratory Rate 16 Blood Pressure 123/66 Pulse Oximetry 100 Oxygen Delivery Method Room Air BMI result Body Mass Index 27.4 Medical Decision Making Medical Decision Making MDM Narrative: 19 yo male presenting for clearance to go back to his retirement after he eloped for 4 days and has been drinking and smoking. he does not appear intoxicated at this time. staff unsure if it is safe to restart his risperidal or not. med list reviewed he is on 1mg qhs. it is safe to restart this medication as previously prescribed. patient and staff counseled. no other labs required. recommended following up with PCP and psychiatrist. stable for d/c with retirement staff. Differential Diagnosis Differential Diagnoses: The differential diagnosis associated with the presentation includes ADHD, alcohol use disorder, adjustment disorder, depression, substance abuse Independent Historian Clinical information obtained from an independent historian. History obtained from or confirmed by: Other (retirement staff) External Record Review External record reviewed: Outpatient record, Prior outpatient labs and Prior outpatient radiology Tests considered The following testing was considered but not selected: basic labs considered, not indicated today Chronic Conditions Patient?s care impacted by: Other (adhd) Critical Care Time Critical Care Time Critical Care Time: No Discharge Plan Discharge Clinical Impression: Adjustment reaction with mixed disturbance of emotions and conduct ADHD Qualifiers: Attention deficit-hyperactivity disorder type: unspecified Qualified Code(s): F90.9 - Attention-deficit hyperactivity disorder, unspecified type Patient Disposition: Home, Self-Care Instructions: Mood Disorders (ED), ADHD in Adults (ED) Additional Instructions: it is safe to restart all of your home medications as previously prescribed follow up with your psychiatrist and primary care doctor If you develop new or worsening symptoms call 911 or come back to the ER for further evaluation. Prescriptions: No Action methylphenidate HCl [Concerta] 36 mg tablet extended release 24hr 36 mg PO DAILY Qty: 7 0RF Rx Instructions: Partial Fill upon patient request. trazodone 50 mg tablet 50 mg PO BEDTIME Qty: 14 0RF risperidone 0.5 mg tablet 0.5 mg PO DAILY Qty: 14 0RF benzonatate 200 mg capsule 200 mg PO TID PRN (Reason: cough) Qty: 30 0RF ibuprofen 600 mg tablet 600 mg PO Q6H PRN (Reason: fever or pain) Qty: 30 0RF famotidine [Heartburn Prevention] 20 mg tablet 20 mg PO DAILY PRN (Reason: abdominal pain) Qty: 20 0RF benzonatate 100 mg capsule 100 mg PO TID PRN (Reason: cough) Qty: 14 0RF cephalexin 500 mg capsule 500 mg PO QID 10 Days Qty: 40 0RF ibuprofen 400 mg tablet 400 mg PO TID PRN (Reason: fever or pain) Qty: 30 0RF prednisone 20 mg tablet 20 mg PO DAILY 7 Days Qty: 7 0RF penicillin V potassium 500 mg tablet 500 mg PO BID 10 Days Qty: 20 0RF Print Language: Sinhala
== END 2024-09-24 15:19 | disposition home or self-care (01) ==
LOC: HO.ED 15:14
PROVIDERS: Emergency Provider Emergency Medicine
DX: F90.9 Attention-deficit hyperactivity disorder, unspecified type (principal); F10.10 Alcohol abuse, uncomplicated; Z72.0 Tobacco use; Z91.148 Patient's other noncompliance with medication regimen for other reason
CPT/HCPCS: 99281; 99282

== ENCOUNTER 2024-10-01 19:09 | Emergency (ER) | payer OTHER, SELFPAY ==
[2024-10-01 19:16] VITALS: BP 121/70; BP 130/84; PULSE 88; PULSE 95; RESP 16; TEMP 36.6; O2SAT 95; O2SAT 98; BMI 28.9
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
[2024-10-01 22:01] VITALS: BP 121/70; PULSE 78; RESP 16; TEMP 36.6; O2SAT 97
== END 2024-10-01 22:02 | disposition home or self-care (01) ==
PROVIDERS: Emergency Provider Emergency Medicine
DX: F41.9 Anxiety disorder, unspecified (principal); R45.1 Restlessness and agitation; F79 Unspecified intellectual disabilities
CPT/HCPCS: 99284; S9485

== ENCOUNTER 2024-10-16 16:18 | Emergency (ER) | payer OTHER, SELFPAY ==
--- NOTE | 2024-10-16 | ECG_ITS ---
Test Reason : CHEST PAIN Blood Pressure : */* mmHG Vent. Rate : 84 BPM Atrial Rate : 84 BPM P-R Int : 142 ms QRS Dur : 84 ms QT Int : 352 ms P-R-T Axes : 21 37 35 degrees QTcB Int : 415 ms Normal sinus rhythm with sinus arrhythmia Normal ECG When compared with ECG of 19-Aug-2024 21:30, No significant change was found Referred By: Generic ED Physician Electronically Signed By: GUANAKO RAPP
--- NOTE | ~2024-10-16 | XR_ITS ---
CLINICAL HISTORY: CP 2 views of the chest. Comparison 07/31/2023. Findings: The lungs are mildly under ventilated. Heart size is upper limits of normal. There is no consolidation. No pleural effusion is seen. Impression: No acute abnormalities. This document has been electronically signed by: Gildardo Tee MD on 10/16/2024 18:31:22
[2024-10-16 16:30] VITALS: BP 129/80; BP 143/78; PULSE 86; PULSE 95; RESP 16; TEMP 36.5; O2SAT 96; O2SAT 97; BMI 32.2
[2024-10-16 16:58] LABS: MANUAL DIFF FLAG NO
[2024-10-16 17:00] LABS: Hematocrit 45.1 % (42.0-52.0); Hemoglobin 15.8 g/dl (14.0-18.0); Imm Gran Abs Auto 0.02 X10*3/uL (0.00-0.03); Imm Gran Pct Auto 0.2 % (0.0-0.4); Lymphocytes Absolute Auto 2.2 X10*3/uL (1.2-4.9); Mean Corpuscular HGB Conc 35.0 g/dl (31.0-36.0); Mean Corpuscular Hemoglobin 30.2 pg (27.0-33.0); Mean Corpuscular Volume 86.2 fL (80.0-98.0); NRBC Abs Auto 0.000 X10*3/uL (0.0-0.012); NRBC Pct Auto 0.0 /100WBC (0.0-0.2); Platelet Count 290 X10*3/uL (160-400); Red Blood Count 5.23 X10*6/uL (4.60-5.80); White Blood Count 8.8 X10*3/uL (4.8-10.8)
--- OUTSIDE RECORDS SUMMARY | 2024-10-16 17:09 | XMS_ITS | Encounter Summary ---
Author Organization [facility] Address [address] [place] [address] Care Team Providers Care Master Of Ceremonies Name Role Phone Milind Paige MD Primary Care Provider Reason for Referral * Consultation (Routine) - Pending Review Specialty Diagnoses / Procedures Referred By Aldair thomas Referred To Contact Psychiatry Diagnoses Adjustment disorder with mixed anxiety and depressed mood Attention deficit hyperactivity disorder (ADHD), unspecified ADHD type Milind Paige MD [address] [place] [address] Phone: tel: fax: Referral ID Status Reason Start Date Expiration Date Visits Requested Visits Authorized [id number] Pending Review Specialty Services Required 10/14/2024 10/14/2025 1 1 Reason for Visit * Reason Onset Date Comments Referral 10/14/2024 Encounter Details Date Type Department Care Team ([facility] st Contact Info) Description 10/14/2024 Telephone Adult Medicine [address] [phone] Milind Paige MD [address] [place] [phone] Social History Tobacco Use Types Packs/Day Years Used Date Smoking Tobacco: Every Day Cigarettes Smokeless Tobacco: Never Alcohol Use Standard Drinks/Week Comments No 0 [...] for your loved ones. For example, child support investigator or elderly care for an older adult? [...] on file documented as of this encounter Progress Notes * Tatiana Johnson RN - 10/14/2024 2:40 PM EDT Called to [facility] and advised the referral was placed and needs to be processed * Milind Paige MD - 10/14/2024 2:35 PM EDT I have placed referral for neuropsych * Kaerna Mcmahon - 10/14/2024 2:07 PM EDT [facility] RN with [facility] is calling in regarding patient. [facility] would like to know if Milind Paige MD and of Taj Fishman would refer patient to see neuropsych. States patient has conduct disorder and adjustment disorder with mixed anxiety and depressed mood. States she would like patient to be referred so he isn't being misdiagnosed and they can service him with all that he needs based upon his diagnosis. [facility] doesn't have anyone in mind. Any questions, please call her atg [phone]. documented in this encounter Plan of Treatment Upcoming Encounters Date Type Department Care Team (Late st Contact Info) Description 03/19/2025 11:30 AM EST Office Visit Adult Medicine [facility] [address] [place] [phone] Milind Paige MD [address] [place] [address] Scheduled Referrals Name Type Priority Associated Diagnoses Orde r Schedule Ambulatory referral to Neuropsychiatry Outpatient Referral Routine Adjustment disorder with mixed anxiety and depressed mood Attention deficit hyperactivity disorder (ADHD), unspecified ADHD type 1 Occurrences starting 10/14/2024 until 10/14/2025 documented as of this encounter Visit Diagnoses Diagnosis Adjustment disorder with mixed anxiety and depressed mood- Primary Attention deficit hyperactivity disorder (ADHD), unspecified ADHD type documented in this encounter Care Teams Master Of Ceremonies Relationship Specialty Start Date End Date Milind Paige MD [address] [place] [address] PCP - General 12/15/22 documented as of this encounter
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
[2024-10-16 17:16] LABS: Anion Gap 12 (12-20); Blood Urea Nitrogen 13 mg/dL (9-16); Calcium 9.2 mg/dL (8.4-10.2); Carbon Dioxide 24 mmol/L (22-29); Chloride 105 mmol/L (96-108); Creatinine Clr Calc Pharmacy 152.0; Estimated Glomerular Filt Rate > 60; Potassium 3.9 mmol/L (3.3-5.1); Sodium 137 mmol/L (135-145)
--- NOTE | 2024-10-16 17:18 | ED_ITS ---
HPI - Chest Pain General Chief Complaint: Chest Pain Stated Complaint: CHEST DISCOMFORT,H/A Time Seen by Provider: 10/16/24 16:39 History of Present Illness ED Provider: Dr. Infante HPI narrative: 19 y/o M patient; PMH ADHD, adjustment reaction; presents from [facility] with report that he ate spicy ramen approx 3 hours prior to arrival. He states since that time he has had chest discomfort and a headache. He otherwise denies: fever or chills, SOB, cough/congestion, nausea/vomiting. Related Data Previous Rx's ?Medication ?Instructions ?Recorded methylphenidate HCl 36 mg 36 mg PO DAILY #7 tabs 01/12 tablet,extended release 24 hr (Concerta) risperidone 0.5 mg tablet 0.5 mg PO DAILY #14 tabs trazodone 50 mg tablet 50 mg PO BEDTIME #14 tabs benzonatate 100 mg capsule 100 mg PO TID PRN cough #14 caps 07/31/23 benzonatate 200 mg capsule 200 mg PO TID PRN cough #30 caps 08/01/23 ibuprofen 600 mg tablet 600 mg PO Q6H PRN fever or p ain 08/01/23 #30 tabs cephalexin 500 mg capsule 500 mg PO QID 10 days #40 ca ps 08/07/23 ibuprofen 400 mg tablet 400 mg PO TID PRN fever or p ain 10/22/23 #30 tabs famotidine 20 mg tablet (Heartburn 20 mg PO DAILY PRN abdominal pain 12/17/23 Prevention) #20 tabs penicillin V potassium 500 mg 500 mg PO BID 10 days #2 0 tabs 08/23/24 tablet prednisone 20 mg tablet 20 mg PO DAILY 7 days #7 tab s 08/23/24 Allergies Allergy/AdvReac Type Severity Reaction Status Date / Time No Known Allergies (NO KNOWN Allergy Unknown UNKNOWN Verified 10/16/24 16:33 ALLERGIES) Review of Systems 2 Review of Systems: Yes all other systems are reviewed and are negative COUNTS INCLUDE 234 BEDS AT THE [facility] Past Medical History Attestation statement: The following information was validated with the patient. Source: old records reviewed Medical History ADHD Adjustment reaction with mixed disturbance of emotions and conduct No pertinent past medical history Social History Social History Household Members: Other Household Members Other:: grandmother Housing: Unknown / Unable to assess Do you presently have visiting nurse or other home services: No Unable to assess alcohol history related to: Unknown Alcohol intake: current Alcohol intake frequency: holidays/special occasions only Patient Tobacco Use Status: Current everyday Tobacco user e-Cigarette/Vaping Use: Currently Using Second Hand Smoke Exposure: No Substance Use Type: Marijuana Advance Directives: No Advance Directives Information Provided: No service: No Sexual orientation: Don't Know Physical Exam 2 Vital Signs: Vital Signs: Last Vital Signs Temp 97.8 F 10/16/24 18:11 Pulse 88 10/16/24 18:11 Resp 20 10/16/24 18:11 BP 127/77 10/16/24 18:11 Pulse Ox 97 10/16/24 18:11 O2 Del Method Room Air 10/16/24 18:11 BMI result Body Mass Index 32.2 Patient is afebrile and hemodynamically stable. Const: General: cooperative and no acute distress HEENT: Head: Yes normal to inspection and Yes atraumatic Eyes: General: appearance normal, both eyes and all related structures P upils: Equal, round and reactive pupils present EOM: EOMs intact bilaterally Neck: Neck: Yes normal visual inspection, Yes full ROM and Yes supple Chest: Chest palpation & inspection: normal inspection of the chest and normal palpation of entire chest wall Resp: Effort & Inspection: normal respiratory effort, able to speak in complete sentences and no cough Auscultation: clear to auscultation bilaterally Cardio: Rate: regular rate Rhythm: regular rhythm Peripheral pulses: P eripheral pulses 2+ throughout GI: Inspection: Yes normal to inspection, No Abdominal wall edema and No distended Palpation (GI): Soft to palpation, not firm, nontender, no guarding and not rigid Auscultation: normal bowel sounds Back/Spine/Pelvis: Back: No back tenderness Neuro: Cranial nerves: Yes Equal, round and reactive pupils present Course Course Course Narrative: Patient is afebrile and hemodynamically stable. Will obtain EKG, CXR, and labs. History suspicious for GERD. Will provide MaaLox and . Labs reviewed. No leukocytosis. No significant anemia. Troponin undetectable. Will plan on repeat 2hr troponin. BMP unremarkable. EKG independently interpreted by saravananelf as NSR 84BPM with normal intervals, without ischemic changes. CXR is unremarkable. Patient did spit out GI cocktail medications. Provided tylenol for pain control. Patient states his pain has completely resolved. Less likely ACS with negative troponin. Possible GERD or gastritis given patient's symptoms started shortly after eating spicy ramen. Plan: Discharge to home with PCP follow up Return precautions given Medications Administered Discontinued Medications Generic Name Dose Route Start Last Admin Trade Name Abhinav PRN Reason Stop Dose Admin Al Hydroxide/Mg Hydroxide 30 ml 10/16/24 17:28 10/16/24 18:15 Magnesium Hydrox/Alum Hydrox 30 Ml Oral.Susp PO 10/16/24 17:29 Not Given ONCE ONE Belladonna Alkaloids/Phenobarbital 10 ml 10/16/24 17:28 10/16/24 18:24 Phenobarb/Hyoscy/Atropine/Scop 10 Ml Elixir PO 10/16/24 17:29 Not Given ONCE ONE Medical Decision Making Lab Data 10/16/24 16:54 10/16/24 16:54 Labs: Lab Results 10/16/24 Range/Units 16:54 WBC 8.8 (4.8-10.8) X10*3/uL RBC 5.23 (4.60-5.80) X10*6/uL Hgb 15.8 (14.0-18.0) g/dl Hct 45.1 (42.0-52.0) % MCV 86.2 (80.0-98.0) fL MCH 30.2 (27.0-33.0) pg MCHC 35.0 (31.0-36.0) g/dl RDW 12.7 (11.0-16.0) % Plt Count 290 (160-400) X10*3/uL MPV 8.3 L (9.4-12.4) fL Immature Gran % (Auto) 0.2 (0.0-0.4) % Neut % (Auto) 63.6 (45-73) % Lymph % (Auto) 24.7 (20-40) % [place] % (Auto) 10.7 (2-11) % Eos % (Auto) 0.5 (0-4) % Baso % (Auto) 0.3 (0-2) % Lymph # (Auto) 2.2 (1.2-4.9) X10*3/uL [place] # (Auto) 0.9 (0.1-1.2) X10*3/uL Eos # (Auto) 0.0 (0.0-0.4) X10*3/uL Baso # (Auto) 0.0 (0.0-0.2) X10*3/uL Abs Immat Gran (auto) 0.02 (0.00-0.03) X10*3/uL Absolute Neuts (auto) 5.6 (2.0-8.3) x10*3/uL Absolute Nucleated RBC 0.000 (0.0-0.012) X10*3/uL Nucleated RBC % (auto) 0.0 (0.0-0.2) /100WBC Sodium 137 (135-145) mmol/L Potassium 3.9 (3.3-5.1) mmol/L Chloride 105 (96-108) mmol/L Carbon Dioxide 24 (22-29) mmol/L Anion Gap 12 (12-20) BUN 13 (9-16) mg/dL Creatinine 0.81 (0.5-1.4) mg/dL Estim Creat Clear Calc 152.0 Estimated GFR > 60 Fasting Glucose 88 (60-99) mg/dL Calcium 9.2 (8.4-10.2) mg/dL Troponin I High Sens < 2.7 (<3.5-35.0) ng/L Radiology Impression Discussion of test interpretation with radiology: I have reviewed the radiologist's reading. Radiologist Impression: CXR independently interpreted by myself as NAD CLINICAL HISTORY: CP 2 views of the chest. Comparison 07/31/2023. Findings: The lungs are mildly under ventilated. Heart size is upper limits of normal. There is no consolidation. No pleural effusion is seen. Impression: No acute abnormalities. This document has been electronically signed by: Gildardo Tee MD on 10/16/2024 18:31:22 Discharge Plan Discharge Clinical Impression: Chest pain Patient Disposition: Home, Self-Care Instructions: Gastritis (DC) Additional Instructions: You were seen today for chest pain after eating spicy ramen. Your EKG, chest XR, and lab work including x2 heart tests were unremarkable. Please follow up with your primary doctor to discuss your recent emergency department visit and for a re-evaluation. I would recommend avoiding spicy food for the next 1 - 2 weeks at least. Prescriptions: No Action methylphenidate HCl [Concerta] 36 mg tablet extended release 24hr 36 mg PO DAILY Qty: 7 0RF Rx Instructions: Partial Fill upon patient request. trazodone 50 mg tablet 50 mg PO BEDTIME Qty: 14 0RF risperidone 0.5 mg tablet 0.5 mg PO DAILY Qty: 14 0RF benzonatate 200 mg capsule 200 mg PO TID PRN (Reason: cough) Qty: 30 0RF ibuprofen 600 mg tablet 600 mg PO Q6H PRN (Reason: fever or pain) Qty: 30 0RF famotidine [Heartburn Prevention] 20 mg tablet 20 mg PO DAILY PRN (Reason: abdominal pain) Qty: 20 0RF benzonatate 100 mg capsule 100 mg PO TID PRN (Reason: cough) Qty: 14 0RF cephalexin 500 mg capsule 500 mg PO QID 10 Days Qty: 40 0RF ibuprofen 400 mg tablet 400 mg PO TID PRN (Reason: fever or pain) Qty: 30 0RF prednisone 20 mg tablet 20 mg PO DAILY 7 Days Qty: 7 0RF penicillin V potassium 500 mg tablet 500 mg PO BID 10 Days Qty: 20 0RF Print Language: Setswana
[2024-10-16 17:26] LABS: Troponin-I High Sensitivity < 2.7 ng/L (<3.5-35.0)
[2024-10-16 18:11] VITALS: BP 127/77; PULSE 88; RESP 20; TEMP 36.6; O2SAT 97
--- NOTE | 2024-10-16 18:15 | PC.NURSE ---
attempted to medicate pt, pt spat out meds. provider aware.
[2024-10-16 19:21] VITALS: BP 105/78; PULSE 75; RESP 14; TEMP 36.8; O2SAT 98
== END 2024-10-16 19:25 | disposition home or self-care (01) ==
PROVIDERS: Emergency Provider Emergency Medicine
DX: R07.9 Chest pain, unspecified (principal); R51.9 Headache, unspecified
CPT/HCPCS: 36415; 71046; 80048; 84484; 85025; 93005; 99283; 99284

== ENCOUNTER → 2024-10-16 16:32 | Outpatient (BNV) | payer OTHER, SELFPAY | PROVIDERS: Emergency Provider Emergency Medicine; Visit Provider Internal Medicine | DX: R07.9 Chest pain, unspecified (principal) | CPT/HCPCS: 93010 ==

== ENCOUNTER → 2024-10-16 16:40 | Outpatient (BNV) | payer OTHER, SELFPAY | PROVIDERS: Emergency Provider Emergency Medicine; Visit Provider Radiology Diagnostic Radiology | DX: R07.9 Chest pain, unspecified (principal) | CPT/HCPCS: 71046 ==

== ENCOUNTER 2024-10-22 00:36 | Emergency (ER) | payer OTHER, SELFPAY ==
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
[2024-10-22 00:39] VITALS: BP 130/98; PULSE 98
[2024-10-22 00:40] VITALS: BP 119/75; PULSE 106; RESP 18; TEMP 36.7; O2SAT 95; BMI 36.1
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
[2024-10-22 03:45] VITALS: BP 119/75; PULSE 106; RESP 18; TEMP 36.7; O2SAT 95
== END 2024-10-22 03:46 | disposition home or self-care (01) ==
PROVIDERS: Emergency Provider Emergency Medicine
DX: M79.642 Pain in left hand (principal); M79.641 Pain in right hand; F43.20 Adjustment disorder, unspecified
CPT/HCPCS: 73120; 99282; 99283

== ENCOUNTER → 2024-10-22 00:55 | Outpatient (BNV) | payer OTHER, SELFPAY | PROVIDERS: Visit Provider General Practice | DX: M79.641 Pain in right hand (principal); M79.642 Pain in left hand | CPT/HCPCS: 73120 ==

== ENCOUNTER 2024-10-27 22:18 | Emergency (ER) | payer OTHER, SELFPAY ==
[2024-10-27 22:23] VITALS: BP 132/84; PULSE 96; O2SAT 96
[2024-10-27 22:32] VITALS: BP 138/88; PULSE 105; RESP 16; TEMP 36.9; O2SAT 97; BMI 26.6
--- NOTE | 2024-10-27 22:37 | ED.PSYCH ---
HPI - Psych General Chief Complaint: Psychiatric Symptoms Stated Complaint: psych eval Time Seen by Provider: 10/27/24 22:23 Source: patient and EMS Mode of arrival: EMS Limitations: no limitations History of Present Illness ED Provider: Vlad PARDO HPI Narrative: The patient is a 19-year-old male presenting to the ED via EMS for evaluation of increasing depression after the recent passing of his friend. The patient reports he is feeling increased depression but denies suicidal ideation or homicidal ideation. The patient denies any auditory or visual hallucinations. The patient admits he did not take his depression medications today. Upon arrival to the ED the patient was noncompliant with hospital policy regarding liner roll changer for psychiatric assessment. After being informed of hospital policy the patient stated he no longer want to be evaluated and wanted to go home and take his medications. Patient denies any acute somatic complaint. Related Data Previous Rx's ?Medication ?Instructions ?Recorded methylphenidate HCl 36 mg 36 mg PO DAILY #7 tabs 01/12/22 tablet,extended release 24 hr (Concerta) risperidone 0.5 mg tablet 0.5 mg PO DAILY #14 tabs 07/21/23 trazodone 50 mg tablet 50 mg PO BEDTIME #14 tabs 07/21/23 benzonatate 100 mg capsule 100 mg PO TID PRN cough #14 caps 07/31/23 benzonatate 200 mg capsule 200 mg PO TID PRN cough #30 caps 08/01/23 ibuprofen 600 mg tablet 600 mg PO Q6H PRN fever or pain 08/01/23 #30 tabs cephalexin 500 mg capsule 500 mg PO QID 10 days #40 caps 08/07/23 ibuprofen 400 mg tablet 400 mg PO TID PRN fever or pain 10/22/23 #30 tabs famotidine 20 mg tablet (Heartburn 20 mg PO DAILY PRN abdominal pain 12/17/23 Prevention) #20 tabs penicillin V potassium 500 mg 500 mg PO BID 10 days #20 tabs 08/23/24 tablet prednisone 20 mg tablet 20 mg PO DAILY 7 days #7 tabs 08/23/24 Allergies Allergy/AdvReac Type Severity Reaction Status Date / Time No Known Allergies (NO KNOWN Allergy Unknown UNKNOWN Verified 10/27/24 22:33 ALLERGIES) Review of Systems Review of Systems: Yes all other systems are reviewed and are negative PMFSH Past Medical History Medical History ADHD Adjustment reaction with mixed disturbance of emotions and conduct No pertinent past medical history Social History Social History Household Members: Other Household Members Other:: grandmother Housing: Unknown / Unable to assess Do you presently have visiting nurse or other home services: No Unable to assess alcohol history related to: Unknown Alcohol intake: current Alcohol intake frequency: holidays/special occasions only Patient Tobacco Use Status: Current everyday Tobacco user e-Cigarette/Vaping Use: Currently Using Second Hand Smoke Exposure: No Substance Use Type: Marijuana Do you have a plan to hurt others: No Plan service: No Sexual orientation: Don't Know Physical Exam Vital Signs: Vital Signs: Last Vital Signs Temp 98.5 F 10/27/24 22:32 Pulse 105 H 10/27/24 22:32 Resp 16 10/27/24 22:32 BP 138/88 10/27/24 22:32 Pulse Ox 97 10/27/24 22:32 O2 Del Method Room Air 10/27/24 22:32 BMI result Body Mass Index 26.6 CONSTITUTIONAL: The patient appears non-toxic, well nourished and in no acute distress. Vital signs as documented. HEAD: Atraumatic, normocephalic. EYES: EOMs grossly intact, pupils equal, conjunctiva clear, no exudate. ENT: Nares patent, no discharge. Airway patent, no audible stridor, visible mucosa is pink and moist without noted lesions. NECK: trachea is midline, no obvious masses or gross abnormalities. CHEST: Symmetric movement, normal appearance. LUNGS: Non-labored work of breathing. CARDIAC: No evidence of hypoperfusion. ABDOMEN: Nondistended, no obvious injury. : Deferred. EXTREMITIES: Moves all extremities spontaneously without reported pain. No obvious injury or deformity noted. NEURO: Alert and oriented x3, CN II-XII appear grossly intact. Cerebellar Functioning grossly intact. Speech clear and appropriate. PSYCH: Flattened affect, but otherwise with appropriate eye contact, fluid speech, with appropriate response to questioning. No suicidality or homicidality. Patient does not appear to be responding to internal stimuli. SKIN: Warm, dry, color appropriate. No rashes noted. Medical Decision Making Medical Decision Making MDM Narrative: 10:37 PM 10/27/2024 (Chelsea PARDO): The patient is a 19-year-old male presenting to the ED via EMS for evaluation of increasing depression after the recent passing of his friend. The patient reports he is feeling increased depression but denies suicidal ideation or homicidal ideation. The patient denies any auditory or visual hallucinations. The patient admits he did not take his depression medications today. Upon arrival to the ED the patient was noncompliant with hospital policy regarding liner roll changer for psychiatric assessment. After being informed of hospital policy the patient stated he no longer want to be evaluated and wanted to go home and take his medications. This provider was brought to the bedside by RN, on assessment the patient is alert and oriented x3, does not appear clinically intoxicated, and ambulates with a steady gait. The patient denies any suicidal or homicidal ideation does not appear to be responding to internal stimuli. As such the patient was once again offered to stay in the ED for medical and psychiatric evaluation with the understanding he would be required to abide by hospital policy. The patient stated he prefers to go home and take his medications. Patient was then allowed to leave the ED without treatment complete. Admission/Observation Consideration of admission/observation: Escalation of care including admission/observation considered External Record Review External record reviewed: Outpatient record Discharge Plan Discharge Clinical Impression: Depression Patient Disposition: Left W/O Completing Treatment Prescriptions: No Action methylphenidate HCl [Concerta] 36 mg tablet extended release 24hr 36 mg PO DAILY Qty: 7 0RF Rx Instructions: Partial Fill upon patient request. trazodone 50 mg tablet 50 mg PO BEDTIME Qty: 14 0RF risperidone 0.5 mg tablet 0.5 mg PO DAILY Qty: 14 0RF benzonatate 200 mg capsule 200 mg PO TID PRN (Reason: cough) Qty: 30 0RF ibuprofen 600 mg tablet 600 mg PO Q6H PRN (Reason: fever or pain) Qty: 30 0RF famotidine [Heartburn Prevention] 20 mg tablet 20 mg PO DAILY PRN (Reason: abdominal pain) Qty: 20 0RF benzonatate 100 mg capsule 100 mg PO TID PRN (Reason: cough) Qty: 14 0RF cephalexin 500 mg capsule 500 mg PO QID 10 Days Qty: 40 0RF ibuprofen 400 mg tablet 400 mg PO TID PRN (Reason: fever or pain) Qty: 30 0RF prednisone 20 mg tablet 20 mg PO DAILY 7 Days Qty: 7 0RF penicillin V potassium 500 mg tablet 500 mg PO BID 10 Days Qty: 20 0RF
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
== END 2024-10-27 22:48 | disposition left against medical advice (07) ==
LOC: HO.ED 22:44
PROVIDERS: Emergency Provider Emergency Medicine Emergency Medical Services
DX: F33.1 Major depressive disorder, recurrent, moderate (principal); F43.21 Adjustment disorder with depressed mood; F17.210 Nicotine dependence, cigarettes, uncomplicated; Z91.A98 Caregiver's noncompliance with patient's other medical treatment and regimen for other reason
CPT/HCPCS: 99283

== ENCOUNTER 2024-10-28 21:56 | Emergency (ER) | payer OTHER, SELFPAY ==
[2024-10-28 22:01] VITALS: BP 131/89; PULSE 91; O2SAT 95
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
[2024-10-28 22:34] VITALS: BP 121/73; PULSE 84; RESP 20; O2SAT 96; BMI 23.3
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
[2024-10-28 23:56] VITALS: BP 121/73; PULSE 84; RESP 20; TEMP 36.6; O2SAT 96
== END 2024-10-28 23:58 | disposition home or self-care (01) ==
PROVIDERS: Emergency Provider Emergency Medicine; PCP Internal Medicine
DX: S06.0X0A Concussion without loss of consciousness, initial encounter (principal); Y04.8XXA Assault by other bodily force, initial encounter; Y93.9 Activity, unspecified; Y92.9 Unspecified place or not applicable; Y99.9 Unspecified external cause status; Z63.8 Other specified problems related to primary support group
CPT/HCPCS: 99283; 99284

== ENCOUNTER 2024-11-03 19:50 | Inpatient (IN) | payer OTHER, SELFPAY ==
[2024-11-03 20:01] VITALS: BP 150/88; PULSE 128; O2SAT 96; BMI 26.6
[2024-11-03 20:24] VITALS: BP 118/73; PULSE 98; RESP 17; TEMP 36.7; O2SAT 96
--- NOTE | 2024-11-03 20:36 | PC.NURSE ---
Crisis regional climate change analyst completed by Domenico Hudson with nuclear security officerJoshua, present. Crisis regional climate change analyst documentation not complete
[2024-11-03 20:40] LABS: MANUAL DIFF FLAG NO
[2024-11-03 20:41] LABS: Hematocrit 43.7 % (42.0-52.0); Hemoglobin 15.4 g/dl (14.0-18.0); Imm Gran Abs Auto 0.02 X10*3/uL (0.00-0.03); Imm Gran Pct Auto 0.2 % (0.0-0.4); Lymphocytes Absolute Auto 2.0 X10*3/uL (1.2-4.9); Mean Corpuscular HGB Conc 35.2 g/dl (31.0-36.0); Mean Corpuscular Hemoglobin 30.7 pg (27.0-33.0); Mean Corpuscular Volume 87.1 fL (80.0-98.0); NRBC Abs Auto 0.000 X10*3/uL (0.0-0.012); NRBC Pct Auto 0.0 /100WBC (0.0-0.2); Platelet Count 293 X10*3/uL (160-400); Red Blood Count 5.02 X10*6/uL (4.60-5.80); White Blood Count 9.2 X10*3/uL (4.8-10.8)
[2024-11-03 20:58] LABS: Alanine Aminotransferase 73 U/L (0-40); Albumin Level 4.8 g/dL (3.5-5.0); Alkaline Phosphatase 70 U/L (39-117); Anion Gap 14 (12-20); Aspartate Amino Transferase 39 U/L (5-37); Blood Urea Nitrogen 13 mg/dL (9-16); Calcium 9.2 mg/dL (8.4-10.2); Carbon Dioxide 23 mmol/L (22-29); Chloride 109 mmol/L (96-108); Creatinine Clr Calc Pharmacy 122.7; Estimated Glomerular Filt Rate > 60; Potassium 3.7 mmol/L (3.3-5.1); Sodium 142 mmol/L (135-145); Total Protein 7.5 g/dL (6.5-8.0)
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
[2024-11-03 21:36] LABS: Cannabinoid Screen Urine Not Detected (Not Detect)
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
[2024-11-04 06:30] VITALS: BP 105/53; PULSE 54; RESP 16; TEMP 36.1; O2SAT 97
--- NOTE | 2024-11-04 10:28 | ECG_ITS ---
Test Reason : med clearamce Blood Pressure : */* mmHG Vent. Rate : 51 BPM Atrial Rate : 51 BPM P-R Int : 130 ms QRS Dur : 86 ms QT Int : 404 ms P-R-T Axes : * 144 145 degrees QTcB Int : 372 ms Suspect limb lead reversal, interpretation assumes no reversal Sinus bradycardia Right axis deviation Nonspecific ST and T wave abnormality Abnormal ECG When compared with ECG of 16-Oct-2024 16:32, ST changes noted. Referred By: Libia Arana Electronically Signed By: GUANAKO RAPP
[2024-11-04 11:15] LABS: Appearance Urine Clear; Glucose Urine UA Negative (Negative); PH 6.0 (5.0-9.0); Specific Gravity - Urine 1.025 (1.005-1.025); UMIC TRIGGER UA YES
--- NOTE | 2024-11-04 11:16 | PC.NURSE ---
Assumed care of this patient at this time, patient resting quietly in bed area. POC IPLOC bedsearch.
--- NOTE | 2024-11-04 11:46 | PC.NURSE ---
Requested provider Dr. Shepherd to order meds, med rec completed by previous RN, awaiting orders.
--- NOTE | 2024-11-04 14:51 | PHA.MEDREC ---
Pharmacy Consult ? Medication Reconciliation Pharmacy has reviewed the medication reconciliation done by nursing.
[2024-11-04 15:43] VITALS: BP 119/67; PULSE 80; RESP 18; TEMP 36.6; O2SAT 96
[2024-11-04 16:10] VITALS: BP 129/79; PULSE 91; RESP 16; TEMP 37.1; O2SAT 97
[2024-11-04 17:53] VITALS: BMI 29.6
--- NOTE | 2024-11-04 18:20 | PC.ADMIT ---
19 y/o male admitted to at 1610 on a 12b from [facility] for SI. Pt ALAN from residential after pt posted a Facebook live video making suicidal statements with a plan to jump off a bridge. On arrival to unit pt denied SI, and stated he had no intent on hurting himself. Pt stated I did it to see how many people care about me. I had 80 views and this one girl reached out to me. Pt denied HI and denied AVH. Pt focused on not wanting to be in the hospital, repeatedly asking when he could discharge. Pt declined to participate in most of the admission process. Pt cooperative with safety check. Prior to skin check pt handed over a vape that he stated he received from a peer in the POD. Pt reported it was a nicotine vape. Per crisis report pt has DCF and DDS services. Pt has an IQ of 60 and is his own guardian. Per report residential stated pt not consistently taking medications, displaying mood lability, using alcohol and cannabis, and making SI statements over the past several months. Utox negative and BAL <10. Pt has dx of ADHD and Adjustment DO. Pt known to with prior admission 06/2024. Pt placed on 15 minute checks.
[2024-11-04 20:00] VITALS: BP 123/64; PULSE 74; RESP 16; TEMP 37.2; O2SAT 97
[2024-11-05 08:00] VITALS: BP 112/55; PULSE 48; RESP 17; TEMP 36.4; O2SAT 96
--- NOTE | 2024-11-05 08:34 | HO.PM.IMCN ---
History of Present Illness Data of Consult Service Date: 11/05/24 Primary Care Provider: Unknown Physician HPI Reason for consult: Medical evaluation 19-year-old with past medical history of ADHD, adjustment disorder, chronic headaches presented to ED after overlie broadcasting with from over the a stone tower in [place] where he was threatening to jump. He has no other significant past medical history. Upon review of his labs there is no significant abnormalities in his CBC, no evidence of kidney or liver injury, U tox negative. Anemia has no medical concerns. Denies any shortness of breath, dizziness, lightheadedness or any other concerning symptoms. Review of Systems Review of Systems: Denies any shortness of breath, chest pain, dizziness, lightheadedness, abdominal pain or discomfort, nausea vomiting or diarrhea PMFSH Medical History ADHD Adjustment reaction with mixed disturbance of emotions and conduct No pertinent past medical history Social History Household Members: Other Household Members Other:: grandmother Housing: Other Housing Other:: detention Do you presently have visiting nurse or other home services: No Unable to assess alcohol history related to: Unknown Alcohol intake: current Alcohol intake frequency: does not drink Patient Tobacco Use Status: Current everyday Tobacco user Tobacco use type: Cigarette Smoked in Last 30 Days: Yes e-Cigarette/Vaping Use: Currently Using Patient Interested in Nicotine Replacement: Yes Second Hand Smoke Exposure: No Use of substances other than those prescribed or required for medical reasons: No Substance Use Type: Marijuana Currently Displaying Signs/Symptoms of Drug Intoxication Withdrawal: No Advance Directives: No Advance Directives Information Provided: Yes Do you have thoughts of harming others: None Do you have a plan to hurt others: No Plan Recently lost weight without trying: No Nutrition Risks: No Nutritional Risk service: No Sexual orientation: Don't Know Meds Allergies Allergy/AdvReac Type Severity Reaction Status Date / Time No Known Allergies (NO KNOWN Allergy Unknown UNKNOWN Verified 11/03/24 20:02 ALLERGIES) Active Medications: Current Medications Acetaminophen (Acetaminophen 325 Mg Tablet) 650 mg PO Q6H PRN PRN Reason: Headache/Pain, Scale 1-10 Al Hydroxide/Mg Hydroxide (Magnesium Hydrox/Alum Hydrox 30 Ml Oral.Susp) 30 ml PO Q6H PRN PRN Reason: Heartburn/Nausea Magnesium Hydroxide (Milk Of Magnesia 30 Ml Oral.Susp) 30 ml PO DAILY PRN PRN Reason: Constipation Nicotine (Nicotine 21 Mg Patch.Td24) 21 mg TRANSDERMA DAILY PRN PRN Reason: smoking cessation Nicotine Polacrilex (Nicotine Polacrilex 2 Mg Gum) 4 mg BUCCAL Q2H PRN PRN Reason: Nicotine Cravings Last Admin: 11/04/24 20:00 Dose: 4 mg Olanzapine (Olanzapine 5 Mg Tablet) 5 mg PO TID PRN PRN Reason: agitation Risperidone (Risperidone 1 Mg Tablet) 1 mg PO BEDTIME ARTHUR Last Admin: 11/04/24 23:24 Dose: 1 mg Trazodone HCl (Trazodone Hcl 50 Mg Tablet) 50 mg PO BEDTIME MRX1 PRN PRN Reason: Insomnia Home Medications ?Medication ?Instructions ?Recorded ?Confirmed ?Last Taken ?Type acetaminophen 500 mg tablet 500 mg PO Q6H PRN LOUISE, muscle 11/04/24 11/04/24 Unknown History aches, and fever >100.5 hydroxyzine HCl 50 mg tablet 50 mg PO Q8H PRN anxiety/agitation 11/04/24 11/04/24 Unknown History nicotine (polacrilex) 4 mg buccal 4 mg PO Q2H PRN Smoking Cessation 11/04/24 11/04/24 Unknown History lozenge risperidone 1 mg tablet 1 mg PO BEDTIME 11/04/24 11/04/24 Unknown History Physical Exam Vital Signs and Narrative: Vital Signs: Last Vital Signs Temp 98.9 F 11/04/24 20:00 Pulse 74 11/04/24 20:00 Resp 16 11/04/24 20:00 BP 123/64 11/04/24 20:00 Pulse Ox 97 11/04/24 20:00 O2 Del Method Room Air 11/04/24 20:00 BMI result Body Mass Index 29.6 CONST: Alert and oriented, in NAD. Well nourished HEENT: Normocephalic, atraumatic, MMM, Eyes clear, Neck supple RESP: Lungs clear, RRR even and regular HEART:,RRR, S1, S2. No murmur, no edema GI:Abdomen Soft NT, ND. + BS times four :Deferred SKIN: Warm dry and intact, no visible lesions or rashes NEURO:CN II-XII Intact bilaterally, Sensation intact. Speech clear PSYCH: Flat affect, cooperative Results Labs 11/03/24 20:35 11/03/24 20:35 Labs: Laboratory Results - last 24 hr 11/03/24 21:18 Urine Color Yellow Urine Appearance Clear Urine pH 6.0 Ur Specific [place] 1.025 Urine Protein Negative Urine Glucose (UA) Negative Urine Ketones Negative Urine Blood Negative Urine Nitrite Negative Ur Leukocyte Esterase Small (1+) H Urine RBC 0-2 Urine WBC 21-50 H Ur Squamous Epith Cells 0-2 Urine Bacteria None Seen Hyaline Casts 0-2 Assessment and Plan (1) Adjustment reaction with mixed disturbance of emotions and conduct: Status: Acute Plan 19-year-old male with a past medical history of anxiety, ADHD, adjustment reaction, presented to the ED for suicidal ideation after he live broadcasted intent to commit suicide from a tall stone tower, the police were notified and he was brought to the emergency department. He is admitted to inpatient psych for further care and treatment. ADHD/adjustment disorder/suicide ideations Treatment per psych team Thank you for allowing me to participate in the care of this patient. Will follow as needed, please notify medical provider with any changes in condition or concerns.
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
[2024-11-05 20:00] VITALS: BP 126/68; PULSE 71; TEMP 37
[2024-11-06 08:00] VITALS: BP 120/66; PULSE 66; RESP 15; TEMP 36.4; O2SAT 98
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
[2024-11-06 20:00] VITALS: BP 132/69; PULSE 84; RESP 16; TEMP 37.2; O2SAT 97
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
[2024-11-07 08:00] VITALS: BP 117/71; PULSE 73; TEMP 36.8; O2SAT 97
--- NOTE | 2024-11-07 12:08 | PC.NURSE ---
Patient was aware of discharge, reported readiness for discharge. D/C instructions given to the patient. Left the unit at 11:50. Took all belongings with him. Picked up by [facility].
== END 2024-11-07 11:50 | disposition other institution (70) | DRG 755 ==
LOC: HO.ED 21:11 → HO.PM5 11-04 16:16
PROVIDERS: Admitting Provider Psychiatry & Neurology Psychiatry; Emergency Provider Emergency Medicine; Visit Provider Psychiatry & Neurology Psychiatry
DX: F43.25 Adjustment disorder with mixed disturbance of emotions and conduct (principal); R45.851 Suicidal ideations; F79 Unspecified intellectual disabilities; F17.210 Nicotine dependence, cigarettes, uncomplicated; Z71.6 Tobacco abuse counseling; F90.9 Attention-deficit hyperactivity disorder, unspecified type; F41.9 Anxiety disorder, unspecified
CPT/HCPCS: 36415; 80053; 80307; 81001; 85025; 93005; 99285; S9485

== ENCOUNTER → 2024-11-04 10:28 | Outpatient (BNV) | payer OTHER, SELFPAY | PROVIDERS: Admitting Provider Psychiatry & Neurology Psychiatry; Emergency Provider Emergency Medicine; Visit Provider Internal Medicine | DX: R00.1 Bradycardia, unspecified (principal) | CPT/HCPCS: 93010 ==

== ENCOUNTER → 2024-11-04 15:33 | Outpatient (BNV) | payer OTHER, SELFPAY | PROVIDERS: Admitting Provider Psychiatry & Neurology Psychiatry; Emergency Provider Emergency Medicine; Visit Provider Nurse Practitioner Family | DX: F43.25 Adjustment disorder with mixed disturbance of emotions and conduct (principal) | CPT/HCPCS: 99221 ==

== ENCOUNTER → 2024-11-04 15:33 | Outpatient (BNV) | payer OTHER, SELFPAY | PROVIDERS: Admitting Provider Psychiatry & Neurology Psychiatry; Emergency Provider Emergency Medicine; Visit Provider Nurse Practitioner Family | DX: F41.9 Anxiety disorder, unspecified (principal); F90.9 Attention-deficit hyperactivity disorder, unspecified type; F79 Unspecified intellectual disabilities; F43.25 Adjustment disorder with mixed disturbance of emotions and conduct | CPT/HCPCS: 90792; 99231; 99238 ==